=== PATIENT | female | born 1955 | race Caucasian/White ===

== ENCOUNTER → 2016-07-16 14:26 | Outpatient (CLI) | payer OTHER | END | disposition home or self-care (01) | LOC: D.LAB 14:15 | DX: Z02.71 Encounter for disability determination (principal) ==

== ENCOUNTER → 2016-11-23 07:59 | Day surgery (SDC) | payer MEDICAID ==
[~2016-11-23] VITALS: Ht 170.2 cm; Wt 89.8 kg
[~2016-11-23 07:59] MED LIST: ASPIRIN EC81 M1 PO; BENADRYL25 MG PO; CELEXA20 MG PO; COREG 3.1253.125 MG PO; HYDROCODON-ACE1 EAC7 PO; ISOSORBIDE DINI10 MG PO; LEVOTHYROXINE125 MCG PO; LIPITOR40 MG PO; NEPHRO-VITE RX1 TAB PO; PREDNISONE50 MG PO
[2016-11-23 09:49] LABS: BASOPHILS 0.1 % (0-2); EOSINOPHILS 0 % (0-7); HEMATOCRIT 43.3 % (36.0-48.0); HEMOGLOBIN 13.2 g/dL (12-16); IMMATURE GRANULOCYTES 0.1 % (0-5); LYMPHOCYTES 19.6 % (15-50); MCH 27.9 pg (26.0-34.0); MCHC 30.5 g/dL (31.0-37.0); MCV 91.5 fL (80.0-100.0); MEAN PLATELET VOLUME 9.5 fL (7.4-10.4); NEUTROPHILS 79.2 % (40-80); PLATELET COUNT 152 10x3/uL (130-400); RBC 4.73 10x6/uL (4.00-5.40); WBC 7.3 10x3/uL (4.8-10.8)
[2016-11-23 09:57] LABS: APTT 28.3 SECONDS (22.8-39.4); INR 1.03 (0.85-1.17); PROTIME 13.4 SECONDS (11.6-15.0)
[2016-11-23 10:09] LABS: ANION GAP 16.4 mmol/L (8-16); CALCIUM 9.8 mg/dL (8.5-10.1); CARBON DIOXIDE 25.4 mmol/L (21.0-32.0); CREATININE - SERUM 4.9 mg/dL (0.6-1.3); POTASSIUM - SERUM 4.8 mmol/L (3.5-5.1)
[2016-11-23 14:33] VITALS: BP 168/88; Ht 170.2 cm; Wt 89.8 kg
--- NOTE | 2016-11-23 22:58 | NUR ---
PT RECEIVED FROM RECOVERY VIA STRETCHER AT 22:20, AWAKE, ALERT, ORIENTED, AND ASKING WHEN SHE CAN GO HOME. PT DENIES ANY NAUSEA OR VOMITING, DENIES PAIN AT THIS TIME. PTS LEFT ARM IS IN A SLING, STILL NUMB AND FLACCID FROM NERVE BLOCK. PT STATES SHE HAS DIFFICULTY AT TIMES WALKING, WILL AMBULATE WITH ASSIST AND MONITOR HER PROGRESS BEFORE D/C. I HAVE GONE OVER ALL OF DR. FLANNERY'S POST OP ORDERS WITH PT AND SON, ALONG WITH GIVING PT A COPY OF THESE ORDERS. PT AND SON DENY ANY QUESTIONS AT THIS TIME. PT IS DRESSING, WILL ASSESS WALKING, AND D/C HOME.
--- NOTE | 2016-11-23 23:45 | NUR ---
PT D/C'D PER ORDER, AWAKE, ALERT, ORIENTED. D/C ORDERS DISCUSSED WITH PT AND SON, DRESSING TO LEFT FOREARM CLEAN DRY AND INTACT, NO OOZING, DRAINAGE, REDNESS, OR STREAKING. PT DENIED NAUSE, VOMITING. PT WAS TAKEN VIA WHEELCHAIR TO THE ER EXIT WHERE HER SON WAS WAITING TO TAKE HER HOME. PT DENIED ANY QUESTIONS.
== END | disposition home or self-care (01) ==
LOC: D.OPS 07:59
PROVIDERS: Surgery
DX: T82.42XA Displacement of vascular dialysis catheter, initial encounter (principal); N18.6 End stage renal disease; Z99.2 Dependence on renal dialysis; Z01.810 Encounter for preprocedural cardiovascular examination; Z01.811 Encounter for preprocedural respiratory examination; Z01.812 Encounter for preprocedural laboratory examination

== ENCOUNTER 2016-12-28 06:05 | Day surgery (SDC) | payer MEDICAID ==
[~2016-12-28] VITALS: Ht 170.2 cm; Wt 92.1 kg
[2016-12-28 07:24] LABS: BASOPHILS 0.1 % (0-2); EOSINOPHILS 0 % (0-7); HEMATOCRIT 37.2 % (36.0-48.0); HEMOGLOBIN 11.7 g/dL (12-16); IMMATURE GRANULOCYTES 0.5 % (0-5); LYMPHOCYTES 17.7 % (15-50); MCH 28.4 pg (26.0-34.0); MCHC 31.5 g/dL (31.0-37.0); MCV 90.3 fL (80.0-100.0); MEAN PLATELET VOLUME 9.6 fL (7.4-10.4); NEUTROPHILS 79.7 % (40-80); PLATELET COUNT 142 10x3/uL (130-400); RBC 4.12 10x6/uL (4.00-5.40); RDW 16.5 % (11.5-14.5); WBC 7.4 10x3/uL (4.8-10.8)
[2016-12-28 07:41] LABS: APTT 25.4 SECONDS (22.8-39.4)
[2016-12-28 07:44] LABS: ANION GAP 17.8 mmol/L (8-16); CALCIUM 9.4 mg/dL (8.5-10.1); CARBON DIOXIDE 26.7 mmol/L (21.0-32.0); CREATININE - SERUM 4.1 mg/dL (0.6-1.3); POTASSIUM - SERUM 4.5 mmol/L (3.5-5.1)
[2016-12-28] MEDS ORDERED: LASIX80 MG PO (08:57)
[2016-12-28] MEDS ORDERED: NEURONTIN 300300 MG PO (08:57)
[2016-12-28] MEDS ORDERED: RENVELA800 MG PO (08:58)
[2016-12-28 08:59] VITALS: Ht 170.2 cm; Wt 92.1 kg
[2016-12-28] MEDS ORDERED: ELIQUIS2.5 MG PO (13:11)
--- NOTE | 2016-12-28 13:30 | NUR ---
RECEIVED PT FROM OR, ALERT/ORIENTED.
--- NOTE | 2016-12-28 14:03 | NUR ---
SPOKE WITH DR SHEPPARD ABOUT FSBS OF 247 ANS STATES SHE CAN TAKE MEDS AT HOME.
--- NOTE | 2016-12-28 20:17 | NUR ---
1420-RECD TO ROOM FROM PACU. ALERT. DENIES PAIN. +THRILL TO LEFT ARM. 1440-FULL LIQUIDS SERVED, NO NAUSEA. 1450-LEFT ARM CONTINUES NUMB, +THRILL. 1520-HEMOSPLIT FLUSHED WITH 1.9CC HEPARIN. SLING TO LEFT ARM, NUMB. DRESSING DRY AND INTACT. +THRILL. 1530-UP TO BATHROOM AND DRESSING. 1600-DISCHARGE INSTRUCTIONS REVIEWED. 1615-D/C VIA WHEELCHAIR.
--- NOTE | 2017-01-03 17:00 | OP ---
PATIENT NAME: LORETO DUGAN MEDICAL RECORD: [id number] :59 LOCATION:[facility] ADMISSION DATE: SURGEON: CORAL FLANNERY MD OPERATION DATE: 12/28/16 SURGEON: Coral Flannery MD REFERRING PHYSICIAN: Dr. Keyes PREOPERATIVE DIAGNOSIS: End-stage renal disease N18.6, dependence on hemodialysis Z99.2, other mechanical complication of surgically implanted arteriovenous graft T82.591A. POSTOPERATIVE DIAGNOSIS: End-stage renal disease N18.6, dependence on hemodialysis Z99.2, other mechanical complication of surgically implanted arteriovenous graft T82.591A. OPERATION PERFORMED: Ultrasound guided percutaneous access and left forearm loop PTFE arteriovenous graft fistulogram with AngioJet mechanical thrombolysis and angioplasty of the arterial anastomosis and a venous anastomotic stenosis and placement of a Bard 7 millimeter by 4 centimeter straight endovascular stent in the venous anastomosis. ANESTHESIA: Regional nerve block and IV sedation and monitoring per ENGINE RESEARCH ENGINEER. PREOPERATIVE NOTE: The patient is very nice 61-year-old white female patient from [place] who is on hemodialysis via catheter. She is about two weeks or slightly over two weeks postop implantation of left forearm loop brachial artery to cephalic vein PTFE arteriovenous graft that has thrombosed. She is brought back to the operating room today as an outpatient to try to salvage this access. PROCEDURE: Under a regional block and sedation, the patient is prepped and draped in a sterile manner. The forearm loop was accessed in the venous limb using ultrasound guidance and micropuncture technique. A 6-British sheath was placed. A guidewire and [place] catheter were advanced through a very tight venous anastomosis into the cephalic vein to the mid humeral level. Contrast injection revealed patency of the cephalic vein and pullback angiogram was performed which revealed a very tight stenosis in the venous anastomosis, 95-99%. This was subsequently dilated with a 7 millimeter by 40 millimeter angioplasty balloon and later during the procedure when the stenosis recurred, it was dilated and stented with a 7 millimeter diameter 40 millimeter long Bard flare stent. This was a straight flare, not a flared flare. I used a AngioJet over a roadrunner wire to lyse thrombus in the venous limb. I then inserted another introducer sheath, a 6-British in the venous limb directed towards the arterial anastomosis and advanced the roadrunner wire into the brachial artery and over that advanced a angled [place] catheter and performed a selective brachial artery arteriogram which revealed a stenosis at the arterial anastomosis, due to thrombus I believe. I then used the AngioJet catheter over the guidewire to lyse thrombus in the body of the graft and arterial limb and I used a 4-British Sony embolectomy catheter to remove thrombus from the arterial anastomosis. I then dilated the arterial anastomosis with a 5 millimeter angioplasty balloon and achieved full effacement without any residual stenosis. The patient was heparinized with 5000 units of heparin at the beginning of the procedure and this was not supplemented nor was it reversed at the end of the procedure. At one point when the procedure seemed to have been successfully completed, I removed the introducer sheath only to find that the graft was not functioning well by OPERATIVE REPORT [id number] LORETO DUGAN palpation and Doppler and I had to insert two new sheaths and through one inserted the flare stent in the venous anastomosis and through the other removed thrombus which had recurred in the arterial anastomosis with a Sony balloon catheter. Contrast injection finally demonstrated good patency in both venous and arterial anastomoses with rapid flow through the fistula and again selective brachial angiography revealed no evidence of significant embolization into the forearm. The hardware was removed and the puncture sites controlled with [id number] 4-0 Prolene sutures and some gentle direct pressure after which sterile dressings were applied. Aventine Ultrafoam, Tegaderm, and Cavilon skin prep. The patient was then awoken and taken to the recovery room. Blood loss was about 10 milliliters, none was replaced. All sponges, instruments, and needles were accounted for. No drain was used. No surgical specimen was submitted for histopathology. PLAN: I will plan for the patient to go home today. I am placing her on Eliquis 2.5 milligrams twice a day for two weeks. I will be seeing her back in my office the week after next. Hopefully her graft will remain patent and it will be able to be used for dialysis and her catheter removed. Unfortunately, the stent crosses the antecubital space and this may limit the lifetime of this arteriovenous graft. I believe in the future the patient may be a candidate for a branchial translocated cephalic vein arteriovenous fistula or basilic arteriovenous fistula. CORAL FLANNERY MD at 1700 CC: BASSAM KEYES MD [id number] DICTATION DATE: 12/28/16 1400 PHYSICAL THERAPY RESIDENT: DM 12/31/16 0903 [facility] 12/28/16 [facility] [address] [place] [address]
== END 2016-12-28 16:15 | disposition home or self-care (01) ==
LOC: D.OPS 06:05
PROVIDERS: Surgery
DX: T82.591A Other mechanical complication of surgically created arteriovenous shunt, initial encounter (principal); T82.858A Stenosis of other vascular prosthetic devices, implants and grafts, initial encounter; N18.6 End stage renal disease; Z99.2 Dependence on renal dialysis; Z01.812 Encounter for preprocedural laboratory examination

== ENCOUNTER 2017-01-25 06:01 | Day surgery (SDC) | payer MEDICAID ==
[~2017-01-25] VITALS: Ht 170.2 cm; Wt 93.4 kg
--- NOTE | ~2017-01-25 | OP ---
PATIENT NAME: LORETO DUGAN MEDICAL RECORD: [id number] :59 LOCATION:[facility] ADMISSION DATE: SURGEON: CORAL FLANNERY MD DATE OF OPERATION: 01/25/[address] Avery. REFERRED BY: Dr. Avery. 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 OPERATIVE FINDINGS: Recurrent kink in the antecubital space at the side of the venous anastomosis and prior stent recurring. OPERATION PERFORMED: A fistulogram with AngioJet mechanical thrombolysis with the forearm loop AV graft followed then by implantation of a new brachial artery in the distal third of the arm to axillary vein. A 6 mm diameter straight [place] Propaten PTFE AV graft. SURGEON: Coral Flannery MD ANESTHESIA: Regional nerve block plus general LMA per Dr. Enriquez and CONTINUOUS IMPROVEMENT MANAGER. PREOPERATIVE NOTE: Ms. Dugan is a very nice 61-year-old white female patient from [place]. She has end-stage renal disease and diabetes. She started dialysis with a catheter. I have recently implanted the forearm loop in her left arm. She had suffered an early thrombosis. Angiogram at that time, she had a very severe venous anastomotic stricture, which I treated by balloon angioplasty and the implantation of the stent that was a Bard FLAIR stent, probably an unfortunate choice. She returned within a week or so after that with another thrombosis and the graft was cleared of thrombus and again a kink or stenosis had occurred at the distal end of the previously inserted stent and that was also stented with a PTFE covered graft. She unfortunately suffered another early thrombosis and is brought back to the OR, here today with plans to do a fistulogram, but most likely will create either a new fistula or implant a new graft. PREOPERATIVE NOTE: Under anesthesia in supine position, the patient was prepped and draped in a sterile manner and the loop graft was accessed percutaneously without the need for ultrasound. A micropuncture technique was used and this led up to placement of a 6-Omani introducer. A Glidewire was inserted and this crossed the venous anastomosis. Fluoroscopy demonstrated a severe kink in the stent in the venous anastomosis. I used an AngioJet catheter to lyse thrombus in the venous limb and venous anastomosis and then injected contrast, which confirmed those findings and I decided at that point that the most expedient and the best thing for her to today would be to go ahead and implant a new graft in her upper arm. The 6-Omani sheath was removed and hemostasis was obtained after a period of direct pressure. A transverse axillary incision was then made and the axillary vein exposed and controlled with Silastic loops. The brachial artery was OPERATIVE REPORT [id number] LORETO DUGAN exposed through a vertical incision just above the antecubital space. It too, was controlled with Silastic loops. The brachial artery was rather heavily calcified, but I thought was usable for the origin of the graft. I chose a 6-mm straight standard wall [place] Propaten graft, one end was beveled and anastomosed to the axillary vein with running 6-0 Prolene. When the vein was opened, it was flushed with heparinized saline and when the anastomosis completed, the suture line was treated with Evicel and later the graft and anastomosis flushed with heparinized saline. A subcutaneous tunnel was then created immediately beneath the skin from the distal incision upwards to the proximal one and a curved carried out as far laterally as I could with the Quantum Dielectrricsa tunneler. The graft was then pulled through that tunnel, shortened and beveled. The artery opened and flushed proximally and distally with heparinized saline and then anastomosis end of graft to side of artery was completed with running 6-0 Prolene. That suture line also was treated with Evicel and when the occluding loops and clamps were released, excellent flow was established in the new graft. The wounds were irrigated with Ancef and gentamicin solution. The wounds were closed with interrupted inverted 3-0 Vicryl and running intracuticular 4-0 Monocryl and Dermabond glue. The wounds were dressed with Maxorb Ag, Tegaderm and Cavilon skin prep. Doppler exam confirmed the presence of a pulsatile Doppler flow in the radial artery at the wrist with the graft open and of course there was dramatic improvement in inflow in the radial artery with graft occlusion with digital pressure. The hand appears to be well vascularized. The patient was awakened and taken to the recovery room in stable condition. Prior to that after completion of the last anastomosis, but before the wounds were closed, I used the micropuncture needle wire and the catheter to perform a completion angiogram. This demonstrated a nice flow through the new graft and then to the axillary vein without any evidence of stenosis or complication with graft occlusion, contrast injection filled retrograde the arterial limb of the graft and the arterial anastomosis and brachial artery above and below demonstrated the radial and ulnar arteries in the upper forearm and all looked very good and subsequently, the catheter was removed and that puncture site closed with [id number] 6-0 Prolene. The patient will be discharged home today and come back to see me next week. She is given a prescription for Ultracet, #30. She can take two p.o. q. 4-6 hours p.r.n. pain, no refills. She is to resume or continue her usual medicines and diet at home and resume activities as tolerated and her usual dialysis schedule. TRANSINT:[id number] Voice Confirmation ID: [id number] DOCUMENT ID: [id number] CORAL FLANNERY MD CC: FATOU AVERY MD [id number] DICTATION DATE: 01/25/17 1253 PICKLE WATER PUMP OPERATOR: 01/25/172044 [facility] 01/25/17 [address] [place] [address]
[~2017-01-25 06:01] MED LIST changes: +ELIQUIS2.5 MG PO; +LASIX80 MG PO; +NEURONTIN 300300 MG PO; +RENVELA800 MG PO
[2017-01-25 06:37] LABS: BASOPHILS 0.1 % (0-2); EOSINOPHILS 0 % (0-7); HEMATOCRIT 39.3 % (36.0-48.0); HEMOGLOBIN 12.1 g/dL (12-16); IMMATURE GRANULOCYTES 0.3 % (0-5); LYMPHOCYTES 14.8 % (15-50); MCH 29.8 pg (26.0-34.0); MCHC 30.8 g/dL (31.0-37.0); MCV 96.8 fL (80.0-100.0); MEAN PLATELET VOLUME 9.2 fL (7.4-10.4); MONOCYTES 0.8 % (2-11); RBC 4.06 10x6/uL (4.00-5.40); RDW 16.9 % (11.5-14.5); WBC 7.1 10x3/uL (4.8-10.8)
[2017-01-25 06:40] LABS: PLATELET COUNT 186 10x3/uL (130-400)
[2017-01-25 06:44] LABS: PROTIME 13.1 SECONDS (11.6-15.0)
[2017-01-25 06:45] LABS: APTT 27.9 SECONDS (22.8-39.4)
[2017-01-25 06:48] LABS: ANION GAP 15.8 mmol/L (8-16); CALCIUM 9.1 mg/dL (8.5-10.1); CARBON DIOXIDE 26.3 mmol/L (21.0-32.0); CREATININE - SERUM 4.2 mg/dL (0.6-1.3); POTASSIUM - SERUM 5.1 mmol/L (3.5-5.1)
[2017-01-25] MEDS ORDERED: BIOTIN5 MG PO (06:50)
[2017-01-25] MEDS ORDERED: VITAMIN B-121000 MCG PO (06:51)
[2017-01-25] MEDS ORDERED: ASCORBIC ACID500 MG PO (06:51)
[2017-01-25 06:54] VITALS: Ht 170.2 cm; Wt 93.4 kg
--- NOTE | 2017-01-25 12:29 | NUR ---
RECEIVED PT FROM OR.
--- NOTE | 2017-01-25 12:34 | NUR ---
NO DOCUMENTATION DONE PRIOR TO MY RELIEF MY GRAND JURY DEPUTY SHERIFF DIRECTOR AWARE AND WAS TOLD TO RELIEVE WITH NO DOCUMENTATION, NOT COMFORTABLE WITH THIS SITUATION, GRAEME.
[2017-01-25] MEDS ORDERED: ULTRACET TABLET1 TAB PO (12:36)
--- NOTE | 2017-01-25 18:51 | NUR ---
1800--TRAMADOL 50MG X1 TAB GIVEN PO FOR PAIN. IV DC'D, PT UP TO DRESS AT THIS TIME. TEMO HAWTHORNE 3169--DISCHARGE INSTRUCTIONS GIVEN, PT VERBALIZES UNDERSTANDING. PT OFF UNIT VIA WC. TEMO HAWTHORNE
== END 2017-01-25 18:35 | disposition home or self-care (01) ==
LOC: D.OPS 06:01
PROVIDERS: Internal Medicine Nephrology
DX: T82.868A Thrombosis due to vascular prosthetic devices, implants and grafts, initial encounter (principal); E11.22 Type 2 diabetes mellitus with diabetic chronic kidney disease; N18.6 End stage renal disease; Z99.2 Dependence on renal dialysis; Z01.812 Encounter for preprocedural laboratory examination

== ENCOUNTER 2017-08-23 11:56 | Outpatient (CLI) | payer MEDICARE ==
[~2017-08-23] VITALS: Ht 170.2 cm; Wt 92.1 kg
[~2017-08-23 11:56] MED LIST changes: +ASCORBIC ACID500 MG PO; +BIOTIN5 MG PO; +ULTRACET TABLET1 TAB PO; +VITAMIN B-121000 MCG PO
[2017-08-23] MEDS ORDERED: SENSIPAR30 MG PO (12:46)
[2017-08-23 12:48] LABS: HEMATOCRIT 37.2 % (36.0-48.0); HEMOGLOBIN 12.2 g/dL (12-16); MCHC 32.8 g/dL (31.0-37.0); MCV 97.6 fL (80.0-100.0); MEAN PLATELET VOLUME 9.3 fL (7.4-10.4); RBC 3.81 10x6/uL (4.00-5.40); RDW 13.6 % (11.5-14.5); WBC 8.2 10x3/uL (4.8-10.8)
[2017-08-23 12:55] VITALS: BP 152/47; Ht 170.2 cm; Wt 92.1 kg
[2017-08-23 12:59] LABS: APTT 31.9 SECONDS (22.8-39.4); INR 1.18 (0.85-1.17); PROTIME 14.6 SECONDS (11.6-15.0)
[2017-08-23 13:02] LABS: ANION GAP 17.3 mmol/L (8-16); CALCIUM 8.6 mg/dL (8.5-10.1); CARBON DIOXIDE 24.9 mmol/L (21.0-32.0); CREATININE - SERUM 7.3 mg/dL (0.6-1.3); POTASSIUM - SERUM 5.2 mmol/L (3.5-5.1)
== END 2017-08-23 15:50 | disposition home or self-care (01) ==
LOC: D.OPS 11:56 → EDSTATUS 14:30 → D.OPS 14:30
PROVIDERS: Anesthesiology
DX: T82.868A Thrombosis due to vascular prosthetic devices, implants and grafts, initial encounter (principal); Z01.810 Encounter for preprocedural cardiovascular examination; Z01.811 Encounter for preprocedural respiratory examination; Z01.812 Encounter for preprocedural laboratory examination; Z53.9 Procedure and treatment not carried out, unspecified reason

== ENCOUNTER 2017-08-27 14:26 | Inpatient (IN) | payer MEDICARE ==
[2017-08-26 14:32] VITALS: BP 182/47; BMI 37.0
[2017-08-26 15:52] VITALS: BP 182/47
[2017-08-26 20:29] VITALS: BP 135/51
[~2017-08-27] VITALS: Ht 170.2 cm; Wt 106.4 kg
--- NOTE | ~2017-08-27 | OP ---
PATIENT NAME: LORETO DUGAN MEDICAL RECORD: [id number] :59 LOCATION:D.M2 D.0 ADMISSION DATE:08/26/17 SURGEON: SIMBA OCONNOR MD DATE OF OPERATION: 08/27/2017 PREOPERATIVE DIAGNOSES: 1. Clotted left upper extremity AV graft. 2. End-stage renal disease. 3. Diabetes mellitus. POSTOPERATIVE DIAGNOSES: 1. Clotted left upper extremity AV graft. 2. End-stage renal disease. 3. Diabetes mellitus. PROCEDURE: 1. Left upper extremity mechanical thrombectomy. 2. Left upper extremity AV graft fistulogram. 3. Angioplasty of venous anastomosis with 6 x 40 mm angioplasty balloon. SURGEON: Simba Oconnor MD REPORT OF PROCEDURE: The patient's left upper extremity was prepped and draped in sterile fashion. A skin incision was made overlying the AV graft at its inferior aspect. Electrocautery was used to dissect down to the graft and we were able to place vessel loops around the graft proximally and distally. A transverse incision was made overlying the graft. There was no flow through the graft at this point. We cleaned up the venous efferent aspect of the graft first by passing a 4 Sony balloon. We were able to pass this balloon multiple times and eventually got a large amount of clot. There was brisk flow blood and with return, the 5-Jordanian sheath was inserted and a fistulogram was performed of the distal aspect of the fistula and showed that there was some clot and stenosis at the venous anastomosis in the left axilla. A 6 x 40 mm angioplasty balloon was inserted and the venous anastomosis was dilated. Following this, we ran the Sony balloon one last time and was able to retrieve this large clot. At this point, there was no sign of any further clot present on final fistulogram. We then advanced the Sony catheter on the efferent end toward the arterial anastomosis and was able to remove large amount of clot. With this, there was brisk pulsatile flow through the vessel. Again, 5 sheath was inserted and a fistulogram was performed, it showed there was no sign of any stenosis of the arterial anastomosis. We then irrigated each side with heparinized saline and closed the graftotomy using running 6-0 Prolenes. At the conclusion of this, a 22-gauge butterfly needle was inserted into the graft and a final fistulogram was performed that showed brisk flow of the contrast through the fistula with no sign of a stenosis or clot present. There was a good palpable thrill in the vessel at this time. We then irrigated out the subcutaneous tissues and reapproximated them with interrupted 3-0 Vicryl. The skin was then closed with subcutaneous running 5-0 Monocryl. COMPLICATIONS: None. CONDITION: Stable. ANESTHESIA: General endotracheal. OPERATIVE REPORT [id number] LORETO DUGAN BLOOD LOSS: 150 mL. TRANSINT:[id number] Voice Confirmation ID: [id number] DOCUMENT ID: [id number] SIMBA OCONNOR MD at 1413 CC: FATOU HARDIN MD [id number] DICTATION DATE: 08/27/17 1437 ROUGH RIB GRADER: 08/27/17 1455 [facility] IN 08/28/17 [id number] [place] [address]
[2017-08-27 01:15] VITALS: BP 147/51
[2017-08-27 05:21] VITALS: BP 134/44
[2017-08-27 06:33] LABS: BASOPHILS 0.6 % (0-2); EOSINOPHILS 2.7 % (0-7); HEMATOCRIT 34.1 % (36.0-48.0); HEMOGLOBIN 11.1 g/dL (12-16); IMMATURE GRANULOCYTES 0.3 % (0-5); MCH 31.5 pg (26.0-34.0); MCHC 32.6 g/dL (31.0-37.0); MCV 96.9 fL (80.0-100.0); MEAN PLATELET VOLUME 10.8 fL (7.4-10.4); MONOCYTES 13.9 % (2-11); NEUTROPHILS 48.5 % (40-80); PLATELET COUNT 122 10x3/uL (130-400); RBC 3.52 10x6/uL (4.00-5.40); RDW 13.5 % (11.5-14.5)
[2017-08-27 06:35] LABS: CALCIUM 8.4 mg/dL (8.5-10.1); CARBON DIOXIDE 18.5 mmol/L (21.0-32.0); PHOSPHOROUS 7.4 mg/dL (2.5-4.9)
[2017-08-27 06:40] LABS: ANION GAP 22.5 mmol/L (8-16)
[2017-08-27 08:01] VITALS: BP 140/47
[2017-08-27 10:08] VITALS: Ht 170.2 cm; Wt 106.4 kg
[2017-08-27 11:16] VITALS: BP 136/53
[~2017-08-27 14:26] MED LIST changes: +SENSIPAR30 MG PO
[2017-08-27 17:06] VITALS: BP 144/69
[2017-08-28] VITALS: BP 96/42
[2017-08-28 04:00] VITALS: BP 109/38
[2017-08-28 05:50] LABS: BASOPHILS 0.2 % (0-2); EOSINOPHILS 0.2 % (0-7); HEMATOCRIT 35.3 % (36.0-48.0); HEMOGLOBIN 11.4 g/dL (12-16); IMMATURE GRANULOCYTES 0.2 % (0-5); LYMPHOCYTES 15.1 % (15-50); MCH 31.8 pg (26.0-34.0); MCHC 32.3 g/dL (31.0-37.0); MCV 98.3 fL (80.0-100.0); MONOCYTES 4.8 % (2-11); NEUTROPHILS 79.5 % (40-80); PLATELET COUNT 121 10x3/uL (130-400); RBC 3.59 10x6/uL (4.00-5.40); RDW 13.4 % (11.5-14.5); WBC 6.4 10x3/uL (4.8-10.8)
[2017-08-28 06:05] LABS: ANION GAP 17.4 mmol/L (8-16); CALCIUM 8.1 mg/dL (8.5-10.1); CREATININE - SERUM 6.1 mg/dL (0.6-1.3); POTASSIUM - SERUM 4.5 mmol/L (3.5-5.1)
[2017-08-28 06:10] LABS: CARBON DIOXIDE 29.1 mmol/L (21.0-32.0)
[2017-08-28 07:58] VITALS: BP 163/52
[2017-08-28] MEDS ORDERED: ELIQUIS2.5 MG PO (08:23)
== END 2017-08-28 18:16 | disposition home or self-care (01) | DRG 252 ==
LOC: D.M2 14:33
PROVIDERS: Internal Medicine Nephrology; Surgery
PROC: 5A1D70Z Performance of Urinary Filtration, Intermittent, Less than 6 Hours Per Day (ICD-10-PCS; 2017-08-27)
PROC: 05C83ZZ Extirpation of Matter from Left Axillary Vein, Percutaneous Approach (ICD-10-PCS; principal; 2017-08-27 11:45)
PROC: 05783ZZ Dilation of Left Axillary Vein, Percutaneous Approach (ICD-10-PCS; 2017-08-27 11:45)
PROC: B51N1ZZ Fluoroscopy of Left Upper Extremity Veins using Low Osmolar Contrast (ICD-10-PCS; 2017-08-27 11:45)
DX: T82.868A Thrombosis due to vascular prosthetic devices, implants and grafts, initial encounter (principal); N18.6 End stage renal disease; I13.2 Hypertensive heart and chronic kidney disease with heart failure and with stage 5 chronic kidney disease, or end stage renal disease; N25.81 Secondary hyperparathyroidism of renal origin; Y83.8 Other surgical procedures as the cause of abnormal reaction of the patient, or of later complication, without mention of misadventure at the time of the procedure; E11.22 Type 2 diabetes mellitus with diabetic chronic kidney disease; I50.9 Heart failure, unspecified; Z99.2 Dependence on renal dialysis; D63.1 Anemia in chronic kidney disease; E83.39 Other disorders of phosphorus metabolism; E11.40 Type 2 diabetes mellitus with diabetic neuropathy, unspecified; Z87.891 Personal history of nicotine dependence

== ENCOUNTER 2017-09-03 06:37 | Day surgery (SDC) | payer MEDICARE ==
[~2017-09-03] VITALS: Ht 170.2 cm; Wt 101.2 kg
--- NOTE | ~2017-09-03 | OP ---
PATIENT NAME: LORETO DUGAN MEDICAL RECORD: [id number] :59 LOCATION:D.OPS ADMISSION DATE: SURGEON: BASSAM BRAVO MD DATE OF OPERATION: 09/03/2017 PREOPERATIVE DIAGNOSIS: Clotted left upper extremity arteriovenous graft fistula. POSTOPERATIVE DIAGNOSES: 1. Clotted left upper extremity arteriovenous graft fistula with ball valving fibrinous clot at the arterial anastomosis. 2. Extravasation of contrast within the graft. 3. Venous anastomotic stricture. PROCEDURES: 1. Antegrade sheath placement, 7-Dominican, left arm AV graft fistula. 2. Retrograde sheath placement, 7-Dominican, left arm AV graft fistula. 3. Nonselective fistulogram. 4. Selective brachial arteriogram. 5. Catheter thrombectomy of arteriovenous graft fistula. 6. AngioJet mechanical thrombolysis of the arteriovenous graft fistula. 7. Balloon angioplasties, 7 mm, venous anastomotic stricture. 8. Placement of fluency covered stents 7 mm x 60 cm at the venous anastomosis and a 6 mm x 60 mm within the extravasating portion of the AV graft. SURGEON: Bassam Bravo MD BRIDAL SALES CONSULTANT: None. BLOOD LOSS: Minimal. ANESTHESIA: General. COMPLICATIONS: None. The risks, possible complications, and alternatives to procedure were explained to the patient. She elects to proceed. OPERATIVE COURSE: The patient was conveyed to the operating room electively on 09/03/2017. General anesthesia was induced by the anesthesia staff. The left upper extremity was sterilely prepped and draped. Utilizing a micropuncture technique, I placed a 7-Dominican sheath in an antegrade fashion. Through the sheath, a nonselective fistulogram was performed. There was no radiologist present for this procedure. Static and sitting images were obtained and are kept in the PACS system. The surgeon interpretation is dictated within the body of this operative note. The nonselective fistulogram revealed a very large clot burden within the AV graft fistula. I advanced an 5-Dominican Sony catheter. It was advanced down through the venous anastomosis and a catheter thrombectomy was performed through the sheath. A subsequent fistulogram revealed a venous anastomotic stricture. Utilizing micropuncture technique, a retrograde 7-Dominican sheath was placed under fluoroscopic guidance again. Through this retrograde sheath, a 5-Dominican Sony catheter was advanced and a catheter thrombectomy of the arterial anastomosis was accomplished. OPERATIVE REPORT [id number] LORETO DUGAN I advanced an 0.035 Glidewire through the antegrade sheath. An AngioJet mechanical thrombolysis was performed until all the clot was removed. I then advanced the 0.035 Glidewire down the retrograde sheath. I advanced it down into the brachial arterial system and then out through the radial artery. Over the 0.035 Glidewire, the AngioJet device was advanced and activated. I performed a thorough AngioJet mechanical thrombolysis. Another fistulogram revealed a persistence of the venous anastomotic stricture. I advanced a 7-mm angioplasty balloon. This was advanced to the venous anastomoses, I inflated the balloon to 8 atmospheres times 3 minutes. A subsequent nonselective fistulogram through the antegrade sheath revealed persistence of the venous anastomotic stricture. I then elected to place a stent as the anastomotic stricture was persistent and resistant to balloon angioplasty. Over the 0.035 Glidewire, I advanced a Fluency covered stent. This was deployed at the venous anastomotic stricture. A post-deployment balloon angioplasty was performed. A subsequent nonselective fistulogram revealed a 0% residual stenosis at the venous anastomosis. I performed another nonselective fistulogram while occluding the venous outflow. This revealed that there was an obstruction of the brachial artery. I performed several catheter thrombectomies through the retrograde sheath in order to try to clear this thrombus and this was not successful. An 0.035 Glidewire was advanced through the retrograde sheath and I performed AngioJet mechanical thrombolysis. I then advanced a 4-Dominican angled diagnostic catheter into the brachial artery and this revealed what appeared to be a ball-valving thrombus that was bullet shaped that would ball valve into the brachial artery and then into the arterial end of the graft. Additional attempts at catheter thrombectomy were performed as well as additional attempts at balloon angioplasty of the ball valving clot. This was not fruitful. I continued catheter thrombectomy attempts and these were ultimately successful. Subsequent, selective brachial arteriogram through 4-Dominican catheter revealed complete clearing of this ball valving clot and flow out through the radial artery. There was an excellent thrill within the graft. The antegrade sheath was removed and there was swelling that occurred around the sheath insertion site. A subsequent fistulogram here revealed extravasation of contrast that was pretty marked. I wanted to seal this area off with a covered stent. I advanced a Fluency stent, deployed it, and a post-deployment angioplasty was performed. A subsequent fistulogram revealed that the extravasation had ceased and that there was a good seal. The retrograde sheath was removed. The sheath sites were closed with a pursestring 3-0 Vicryl sutures. Sterile dressings were applied. The patient was then extubated and conveyed to post-anesthesia care unit where she was in stable condition. TRANSINT:[id number] Voice Confirmation ID: [id number] DOCUMENT ID: [id number] OPERATIVE REPORT [id number] LORETO DUGAN ROBERT MD at 1227 CC: KIRK ZABALA MD [id number] DICTATION DATE: 11/06/172052 MANAGER DATA WAREHOUSE: 11/07/[address] [facility] 09/03/17 [address] [place] [address]
[2017-09-03 07:29] LABS: BASOPHILS 0.4 % (0-2); EOSINOPHILS 2.2 % (0-7); HEMATOCRIT 33.8 % (36.0-48.0); HEMOGLOBIN 10.6 g/dL (12-16); IMMATURE GRANULOCYTES 0.2 % (0-5); LYMPHOCYTES 21.5 % (15-50); MCH 31.4 pg (26.0-34.0); MCHC 31.4 g/dL (31.0-37.0); MEAN PLATELET VOLUME 9.7 fL (7.4-10.4); MONOCYTES 7.8 % (2-11); NEUTROPHILS 67.9 % (40-80); RBC 3.38 10x6/uL (4.00-5.40); RDW 13.4 % (11.5-14.5); WBC 10.6 10x3/uL (4.8-10.8)
[2017-09-03 07:41] LABS: APTT 28.7 SECONDS (22.8-39.4); INR 1.09 (0.85-1.17); PROTIME 13.7 SECONDS (11.6-15.0)
[2017-09-03 07:42] LABS: PLATELET COUNT 162 10x3/uL (130-400)
[2017-09-03 07:49] LABS: ANION GAP 22.3 mmol/L (8-16); CARBON DIOXIDE 20.2 mmol/L (21.0-32.0); CREATININE - SERUM 8.6 mg/dL (0.6-1.3); POTASSIUM - SERUM 5.5 mmol/L (3.5-5.1)
[2017-09-03 08:25] VITALS: Ht 170.2 cm; Wt 101.2 kg
== END 2017-09-03 14:50 | disposition home or self-care (01) ==
LOC: D.OPS 06:37
PROVIDERS: Anesthesiology
DX: T82.898A Other specified complication of vascular prosthetic devices, implants and grafts, initial encounter (principal); I25.10 Atherosclerotic heart disease of native coronary artery without angina pectoris; E03.9 Hypothyroidism, unspecified; J44.9 Chronic obstructive pulmonary disease, unspecified; E11.22 Type 2 diabetes mellitus with diabetic chronic kidney disease; I13.2 Hypertensive heart and chronic kidney disease with heart failure and with stage 5 chronic kidney disease, or end stage renal disease; N18.6 End stage renal disease; Z99.2 Dependence on renal dialysis; Z01.812 Encounter for preprocedural laboratory examination

== ENCOUNTER 2017-09-17 06:11 | Day surgery (SDC) | payer MEDICARE ==
[~2017-09-17] VITALS: Ht 170.2 cm; Wt 102.1 kg
--- NOTE | ~2017-09-17 | OP ---
PATIENT NAME: LORETO DUGAN MEDICAL RECORD: [id number] :57 LOCATION:D.OPS ADMISSION DATE: SURGEON: MELISSA OCONNOR MD DATE OF OPERATION: 09/17/2017 PREOPERATIVE DIAGNOSES: 1. Clotted left upper extremity AV graft. 2. End-stage renal disease. 3. Hypertension. 4. Diabetes mellitus. 5. Coronary artery disease with history of CABG. 6. Congestive heart failure, undifferentiated. POSTOPERATIVE DIAGNOSES: 1. Clotted left upper extremity AV graft. 2. End-stage renal disease. 3. Hypertension. 4. Diabetes mellitus. 5. Coronary artery disease with history of CABG. 6. Congestive heart failure, undifferentiated. PROCEDURE: Left upper extremity AV graft, mechanical thrombectomy with fistulogram. SURGEON: Melissa Oconnor MD REPORT OF PROCEDURE: The patient's left upper extremity was prepped and draped in sterile fashion. A longitudinal incision was made overlying the lateral aspect of the graft. We came around the graft and placed vessel loops. A transverse opening was made through the graft and there was no flow through the graft at this point. We opened up the efferent side first by placing a 4 Sony catheter through the graft and traversing the venous anastomosis. The anastomosis appeared to be open and actually at this time, there was a stent present in the distal aspect of the AV graft. The 4 Sony catheter was pulled through and a large amount of clot was removed. We eventually pulled a 5 Sony catheter through and removed the remaining clot. At this point, we had good continuous flow. We then flushed the area with heparinized saline, and the patient was given 5000 units of heparin IV. We then opened up the afferent end again using a 4 Sony catheter. Upon doing this, we were able to pass through the arterial anastomosis. We removed a large amount of clot, and there was noted to be good pulsatile flow present. We placed a 6-Brazilian sheath into the opening and performed a fistulogram through the arterial anastomosis. There appeared to be some clot still present, so a 5 Sony catheter was pulled through and there was removal of a small amount of clot. At this point, there was no more visible clot present. We then placed the 6-Brazilian sheath in the distal aspect of the graft and again shot some fistulogram proceeding up through the axillary vein up into the chest. This appeared to be widely patent and open. We then reapproximated the edges of the graft using running 6-0 Prolene. After the graft was opened up, we noted that there was good pulsatile flow through the graft. A 22-gauge butterfly needle was inserted in the graft and a final fistulogram was performed proximally and distally showing good flow through the vessel and in through the arterial inlet. At this point, the subcutaneous tissues were irrigated out and reapproximated with interrupted 3-0 Vicryl, and the skin was closed with running subcutaneous 5-0 Monocryl. OPERATIVE REPORT [id number] LORETO DUGAN COMPLICATIONS: None. CONDITION: Stable. ANESTHESIA: General endotracheal. BLOOD LOSS: 200 mL. TRANSINT:[id number] Voice Confirmation ID: [id number] DOCUMENT ID: [id number] MELISSA OCONNOR MD at 1413 CC: [id number] DICTATION DATE: 09/17/17 1254 MOTOR VEHICLE DISPATCHER: 09/17/17 1310 [facility] [address] [place] [address]
[2017-09-17 07:18] LABS: BASOPHILS 0.6 % (0-2); EOSINOPHILS 2.9 % (0-7); HEMATOCRIT 33.4 % (36.0-48.0); HEMOGLOBIN 10.7 g/dL (12-16); IMMATURE GRANULOCYTES 0.1 % (0-5); LYMPHOCYTES 21.3 % (15-50); MCH 31.4 pg (26.0-34.0); MCV 97.9 fL (80.0-100.0); MEAN PLATELET VOLUME 9.4 fL (7.4-10.4); MONOCYTES 10.3 % (2-11); NEUTROPHILS 64.8 % (40-80); PLATELET COUNT 171 10x3/uL (130-400); RBC 3.41 10x6/uL (4.00-5.40); RDW 13.5 % (11.5-14.5); WBC 9.6 10x3/uL (4.8-10.8)
[2017-09-17 07:28] LABS: APTT 30.4 SECONDS (22.8-39.4); INR 1.09 (0.85-1.17); PROTIME 13.7 SECONDS (11.6-15.0)
[2017-09-17 07:33] LABS: ANION GAP 17.9 mmol/L (8-16); CALCIUM 8.9 mg/dL (8.5-10.1); CARBON DIOXIDE 23.5 mmol/L (21.0-32.0); CREATININE - SERUM 7.1 mg/dL (0.6-1.3); POTASSIUM - SERUM 5.4 mmol/L (3.5-5.1)
[2017-09-17 08:40] VITALS: Ht 170.2 cm; Wt 102.1 kg
[2017-09-17] MEDS ORDERED: DILAUDID2 MG PO (12:48)
== END 2017-09-17 14:35 | disposition home or self-care (01) ==
LOC: D.OPS 06:11
PROVIDERS: Anesthesiology
DX: T82.868A Thrombosis due to vascular prosthetic devices, implants and grafts, initial encounter (principal); E11.22 Type 2 diabetes mellitus with diabetic chronic kidney disease; I13.2 Hypertensive heart and chronic kidney disease with heart failure and with stage 5 chronic kidney disease, or end stage renal disease; N18.6 End stage renal disease; Z99.2 Dependence on renal dialysis; K21.9 Gastro-esophageal reflux disease without esophagitis; E66.9 Obesity, unspecified; Z95.1 Presence of aortocoronary bypass graft; Z01.812 Encounter for preprocedural laboratory examination

== ENCOUNTER 2017-10-12 09:21 | Inpatient (IN) | payer MEDICARE ==
[~2017-10-12] VITALS: Ht 170.2 cm; Wt 103.5 kg
--- NOTE | ~2017-10-12 | OP ---
PATIENT NAME: LORETO DUGAN MEDICAL RECORD: [id number] :57 LOCATION:D.M2 D.2136 ADMISSION DATE:10/12/17 SURGEON: MELISSA OCONNOR MD DATE OF OPERATION: 10/12/2017 PREOPERATIVE DIAGNOSES: 1. End-stage renal disease. 2. Clotted left upper extremity AV graft. 3. Acute fluid overload. 4. Diabetes mellitus. 5. Hypertension. 6. Coronary artery disease. 7. Congestive heart failure, undifferentiated. POSTOPERATIVE DIAGNOSES: 1. End-stage renal disease. 2. Clotted left upper extremity AV graft. 3. Acute fluid overload. 4. Diabetes mellitus. 5. Hypertension. 6. Coronary artery disease. 7. Congestive heart failure, undifferentiated. PROCEDURE: Right IJ 12-1/2 cm Trialysis catheter placement. SURGEON: Melissa Oconnor MD REPORT OF PROCEDURE: The patient's right neck was prepped and draped in sterile fashion. A total of 5 cc of 1% lidocaine was infused into the subcutaneous tissues. Using ultrasound guidance, a needle was used to cannulate the right internal jugular vein and a guidewire was advanced with ease. Over this wire, a dilator was placed followed by the Trialysis catheter. The catheter aspirated nonpulsatile dark blood and flushed easily in all 3 ports. This was sutured into place with 4-0 nylons and dressed appropriately. COMPLICATIONS: None. CONDITION: Fair. ANESTHESIA: Local. BLOOD LOSS: Minimal. Procedure done at the bedside. TRANSINT:[id number] Voice Confirmation ID: [id number] DOCUMENT ID: [id number] OPERATIVE REPORT [id number] LORETO DUGAN MELISSA OCONNOR MD at 1052 CC: [id number] DICTATION DATE: 10/12/17 1644 ELECTRICAL SYSTEMS DESIGN ENGINEER: 10/12/17 1649 DIS IN 10/16/17 [id number] [place] [address]
--- NOTE | ~2017-10-12 | CN ---
PATIENT NAME:LORETO DUGAN MEDICAL RECORD: [id number] : 59 LOCATION:[facility].2136 ADMIT DATE: 10/12/17 ACCOUNT: [id number] CONSULTING PHYSICIAN: INGE SCHULTZ MD REFERRING PHYSICIAN: FATOU HARDIN MD DATE OF CONSULTATION: 10/14/2017 IDENTIFYING DATA: The patient is 62 years old. She is admitted to the hospital on a voluntary basis. CHIEF COMPLAINT: Occluded arteriovenous fistula. HISTORY OF PRESENT ILLNESS: The patient has been on dialysis for about a year. She has had several fistulas that have clotted. She is very upset about this. She apparently was quite tearful when the surgeon came in and hence, he requested a consultation. Apparently, the patient also says that she only is taking dialysis because her son wants her to and that if it were not for him, she would just stop it and she understands that she would if she did so. MENTAL STATUS EXAMINATION: The patient is awake, alert, and oriented to person, place, time, and situation. Her mood is euthymic. Her affect is appropriate. Thought processes are circumstantial. Memory, concentration, and abstraction abilities are intact and she denies any intent to harm herself or others as well as overt psychotic symptoms. ASSESSMENT: Adjustment disorder with mixed emotional features. PLAN: The patient is on an antidepressant. She is not psychotic, delusional or cognitively impaired to any appreciable degree. She is willing to take dialysis because her son wants her to do so. She is very frustrated about her medical condition, but at this point, there is no evidence of loss of contact with reality or acute dangerousness. She is already taking an antidepressant medication. I have offered her outpatient psychotherapy and/or supportive treatments and she has declined. TRANSINT:[id number] Voice Confirmation ID: [id number] DOCUMENT ID: [id number] INGE SCHULTZ MD at 1435 CC: [id number] DICTATION DATE: 10/14/17 1515 CORPORATE LEGAL SECRETARY: 10/14/17 1528 ADM IN [id number] [place] [address]
--- NOTE | ~2017-10-12 | OP ---
PATIENT NAME: LORETO DUGAN MEDICAL RECORD: [id number] :57 LOCATION:D. 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 OPERATION PERFORMED: Percutaneous fistulogram with AngioJet mechanical thrombolysis and balloon angioplasty and maceration of thrombus within the AV graft and a selective brachial artery arteriogram and also insertion of a HemoSplit tunneled dialysis catheter 23 cm in length via the left internal jugular vein done with ultrasound and fluoroscopic guidance. SURGEON: Coral Flannery MD REFERRING PHYSICIAN: Dr. Reilly and Dr. Avery. ANESTHESIA: TIVA per SENIOR HYDROGEOLOGIST. PREOPERATIVE NOTE: Ms. Dugan is an obese 62-year-old -[place] female with end-stage renal disease, who has a left arm brachial axillary PTFE AV graft, which has been recurrently thrombosing and requiring intervention more and more often despite being on anticoagulant therapy. She was admitted to the hospital on this occasion with another episode of graft thrombosis and Dr. Adames placed a temporary catheter so that she could dialyze and I am back now from a long weekend and I have been consulted for possible revision of her AV graft versus construction of a new access. She is brought to the operating room at this time with plans to start with a fistulogram and declot. Also, she is going to need a longer term tunneled catheter. DESCRIPTION OF PROCEDURE: Under TIVA per SENIOR HYDROGEOLOGIST, the patient was prepped and draped in a sterile manner. The graft was accessed with ultrasound guidance and micropuncture technique and two 6-Irish catheters were inserted. The patient was systemically heparinized. Over a guidewire, I used the AngioJet catheter to lyse thrombus within the body of the graft and the venous outflow and arterial limb. I placed a guidewire and catheter selectively in the proximal brachial artery and performed a selective arteriogram, which revealed no thrombus or embolus or other stenosis of the brachial artery or radial or ulnar arteries. Contrast injection demonstrated irregularities within the body of the AV graft and these were treated with repeated angioplasty balloon inflations to eliminate the areas of stenosis and macerate any remaining thrombus. Repeated contrast injections looked smooth. The arterial plug was pulled with a Sony catheter and eventually excellent flow was restored within the AV graft. I do not see any mechanical reason for this repeated graft failure and I do not see anything that I can do surgically to improve upon the graft, which she has presently in the left arm. If were to do anything different then it will require a new access to be constructed on the right side. The introducers were removed and hemostasis obtained with 4-0 Prolene [id number] sutures and direct pressure and the sites were subsequently dressed in sterile dressings. I then removed the Trialysis catheter from the left neck and then using OPERATIVE REPORT [id number] LORETO DUGAN ultrasound guidance, I was able to access the left internal jugular vein at a lower or more proximal level. This was done under ultrasound guidance with a needle and guidewire. Under fluoroscopy, the guidewire was placed in the right atrium. I made an incision at that entry site and then passed dilators over the guidewire and finally a dilator peel-away introducer was inserted. I initially chose a 19, but then changed to a 23 cm HemoSplit catheter. I passed this through an entry site below the clavicle and through a subcutaneous tunnel up to the cervical wound. It was then passed over a guidewire through the peelaway sheath and positioned satisfactorily on the right atrium. The sheaths and guidewire removed. Both lumens were accessed and aspirated easily. They were then flushed easily with saline solution, clamped and capped. The catheter was sutured to the skin near the entry site with a 2-0 Prolene and the cervical wound closed with interrupted inverted 3-0 Vicryl and Dermabond glue. Additional sterile dressings were applied and the patient then was awakened and taken to the recovery room in stable condition. Blood loss was minimal and unreplaced. All sponges, instruments and needles were accounted for. No drain was used. No surgical specimen was submitted for histopathology. PLAN: The patient will need to have the HemoSplit catheter removed if after a few weeks the graft remains patent of course with a higher dose of her anticoagulant. If it fails, then she will need to have a new AV graft implanted in the right arm. TRANSINT:[id number] Voice Confirmation ID: [id number] DOCUMENT ID: [id number] CORAL FLANNERY MD at 1221 CC: FATOU AVERY MD and KIRK REILLY MD [id number] DICTATION DATE: 11/05/17 1409 CLOTH EXAMINER MACHINE: 11/05/17 1550 DIS IN 10/16/17 [facility] [address] [place] [address]
[~2017-10-12 09:21] MED LIST changes: +DILAUDID2 MG PO
[2017-10-12 10:47] VITALS: BP 203/76; BMI 36.9
[2017-10-12 11:38] LABS: BASOPHILS 0.5 % (0-2); EOSINOPHILS 2.3 % (0-7); HEMATOCRIT 32.5 % (36.0-48.0); HEMOGLOBIN 10.3 g/dL (12-16); IMMATURE GRANULOCYTES 0.1 % (0-5); LYMPHOCYTES 32.5 % (15-50); MCH 31.8 pg (26.0-34.0); MCHC 31.7 g/dL (31.0-37.0); MCV 100.3 fL (80.0-100.0); MEAN PLATELET VOLUME 9.4 fL (7.4-10.4); NEUTROPHILS 57.6 % (40-80); PLATELET COUNT 155 10x3/uL (130-400); RBC 3.24 10x6/uL (4.00-5.40); RDW 13.5 % (11.5-14.5); WBC 8.3 10x3/uL (4.8-10.8)
[2017-10-12 11:43] LABS: INR 0.95 (0.85-1.17); PROTIME 12.2 SECONDS (11.6-15.0)
[2017-10-12 11:44] LABS: APTT 26.3 SECONDS (22.8-39.4)
[2017-10-12 12:23] LABS: ALBUMIN 3.3 g/dL (3.4-5.0); ANION GAP 16.9 mmol/L (8-16); BILIRUBIN - TOTAL 0.35 mg/dL (0.2-1.3); CALCIUM 8.9 mg/dL (8.5-10.1); CARBON DIOXIDE 25.9 mmol/L (21.0-32.0); CREATININE - SERUM 5.7 mg/dL (0.6-1.3); POTASSIUM - SERUM 4.8 mmol/L (3.5-5.1); PROTEIN - SERUM 6.8 g/dL (6.4-8.2)
[2017-10-13 05:48] VITALS: BP 122/31
[2017-10-13 08:02] VITALS: BP 121/67
[2017-10-13 11:16] VITALS: BP 115/54
[2017-10-13 15:01] VITALS: BP 102/48
[2017-10-13 20:00] VITALS: BP 122/68
[2017-10-14] VITALS: BP 124/70
[2017-10-14 04:00] VITALS: BP 125/41
[2017-10-14 06:20] LABS: BASOPHILS 0.8 % (0-2); EOSINOPHILS 3.4 % (0-7); HEMOGLOBIN 10.3 g/dL (12-16); IMMATURE GRANULOCYTES 0.3 % (0-5); LYMPHOCYTES 37.8 % (15-50); MCH 31.5 pg (26.0-34.0); MCHC 31.2 g/dL (31.0-37.0); MCV 100.9 fL (80.0-100.0); MEAN PLATELET VOLUME 9.5 fL (7.4-10.4); MONOCYTES 10.8 % (2-11); NEUTROPHILS 46.9 % (40-80); PLATELET COUNT 155 10x3/uL (130-400); RBC 3.27 10x6/uL (4.00-5.40); RDW 13.8 % (11.5-14.5)
[2017-10-14 06:30] LABS: WBC 6.1 10x3/uL (4.8-10.8)
[2017-10-14 06:42] LABS: INR 0.99 (0.85-1.17); PROTIME 12.7 SECONDS (11.6-15.0)
[2017-10-14 06:43] LABS: APTT 28.5 SECONDS (22.8-39.4)
[2017-10-14 07:00] LABS: ANION GAP 17.1 mmol/L (8-16); CALCIUM 8.5 mg/dL (8.5-10.1); CARBON DIOXIDE 26.1 mmol/L (21.0-32.0); CREATININE - SERUM 5.5 mg/dL (0.6-1.3); POTASSIUM - SERUM 4.2 mmol/L (3.5-5.1)
[2017-10-14 09:17] VITALS: BP 167/79
[2017-10-14 10:44] VITALS: BP 156/69
[2017-10-14 14:21] VITALS: Ht 170.2 cm; Wt 103.5 kg
[2017-10-14 15:17] VITALS: BP 127/64
[2017-10-14 19:42] VITALS: BP 124/43
[2017-10-15 00:58] VITALS: BP 144/44
[2017-10-15 04:00] VITALS: BP 149/42
[2017-10-15 07:15] LABS: BASOPHILS 0.6 % (0-2); EOSINOPHILS 3.8 % (0-7); HEMOGLOBIN 9.7 g/dL (12-16); MCH 31.2 pg (26.0-34.0); MCHC 31.3 g/dL (31.0-37.0); MCV 99.7 fL (80.0-100.0); MEAN PLATELET VOLUME 9.5 fL (7.4-10.4); MONOCYTES 11.3 % (2-11); NEUTROPHILS 49.3 % (40-80); PLATELET COUNT 148 10x3/uL (130-400); RBC 3.11 10x6/uL (4.00-5.40); RDW 13.7 % (11.5-14.5); WBC 6.8 10x3/uL (4.8-10.8)
[2017-10-15 07:31] LABS: ANION GAP 19.4 mmol/L (8-16); CALCIUM 8.4 mg/dL (8.5-10.1); CARBON DIOXIDE 22.2 mmol/L (21.0-32.0); CREATININE - SERUM 6.5 mg/dL (0.6-1.3); POTASSIUM - SERUM 4.6 mmol/L (3.5-5.1)
[2017-10-15 07:46] VITALS: BP 144/54
[2017-10-15 17:07] VITALS: BP 132/65
[2017-10-15 20:00] VITALS: BP 129/62
[2017-10-16] VITALS: BP 111/39
[2017-10-16 04:00] VITALS: BP 107/36
[2017-10-16 07:44] LABS: BASOPHILS 0.6 % (0-2); EOSINOPHILS 0.7 % (0-7); HEMATOCRIT 32.5 % (36.0-48.0); HEMOGLOBIN 10.5 g/dL (12-16); IMMATURE GRANULOCYTES 0.3 % (0-5); LYMPHOCYTES 14.2 % (15-50); MCHC 32.3 g/dL (31.0-37.0); MCV 99.1 fL (80.0-100.0); MEAN PLATELET VOLUME 9.4 fL (7.4-10.4); MONOCYTES 10.6 % (2-11); NEUTROPHILS 73.6 % (40-80); PLATELET COUNT 138 10x3/uL (130-400); RBC 3.28 10x6/uL (4.00-5.40); RDW 13.7 % (11.5-14.5)
[2017-10-16 08:20] LABS: ANION GAP 20.9 mmol/L (8-16); CARBON DIOXIDE 21.1 mmol/L (21.0-32.0); CREATININE - SERUM 5.5 mg/dL (0.6-1.3)
[2017-10-16 08:53] VITALS: BP 112/35
[2017-10-16] MEDS ORDERED: XARELTO15 MG PO (11:40)
== END 2017-10-16 16:59 | disposition home or self-care (01) | DRG 252 ==
LOC: D.M2 09:21
PROVIDERS: Internal Medicine; Surgery
PROC: 02HV33Z Insertion of Infusion Device into Superior Vena Cava, Percutaneous Approach (ICD-10-PCS; principal; 2017-10-12)
PROC: 037Y3ZZ Dilation of Upper Artery, Percutaneous Approach (ICD-10-PCS; 2017-10-15)
PROC: B51W1ZZ Fluoroscopy of Dialysis Shunt/Fistula using Low Osmolar Contrast (ICD-10-PCS; 2017-10-15)
PROC: B31J1ZZ Fluoroscopy of Left Upper Extremity Arteries using Low Osmolar Contrast (ICD-10-PCS; 2017-10-15)
PROC: 02H633Z Insertion of Infusion Device into Right Atrium, Percutaneous Approach (ICD-10-PCS; 2017-10-15)
PROC: B2141ZZ Fluoroscopy of Right Heart using Low Osmolar Contrast (ICD-10-PCS; 2017-10-15)
PROC: 05CY3ZZ Extirpation of Matter from Upper Vein, Percutaneous Approach (ICD-10-PCS; 2017-10-15 12:00)
DX: T82.818A Embolism due to vascular prosthetic devices, implants and grafts, initial encounter (principal); N18.6 End stage renal disease; I13.2 Hypertensive heart and chronic kidney disease with heart failure and with stage 5 chronic kidney disease, or end stage renal disease; Y83.8 Other surgical procedures as the cause of abnormal reaction of the patient, or of later complication, without mention of misadventure at the time of the procedure; E11.22 Type 2 diabetes mellitus with diabetic chronic kidney disease; I50.9 Heart failure, unspecified; I25.10 Atherosclerotic heart disease of native coronary artery without angina pectoris; Z95.1 Presence of aortocoronary bypass graft; H35.30 Unspecified macular degeneration; F41.9 Anxiety disorder, unspecified; F43.29 Adjustment disorder with other symptoms; F03.90 Unspecified dementia, unspecified severity, without behavioral disturbance, psychotic disturbance, mood disturbance, and anxiety

== ENCOUNTER 2018-03-14 06:49 | Day surgery (SDC) | payer MEDICARE ==
[~2018-03-14] VITALS: Ht 170.2 cm; Wt 102.1 kg
--- NOTE | ~2018-03-14 | OP ---
PATIENT NAME: LORETO DUGAN MEDICAL RECORD: [id number] :59 LOCATION:DJOÃO ADMISSION DATE: SURGEON: SIMBA OCONNOR MD DATE OF OPERATION: 03/14/2018 PREOPERATIVE DIAGNOSES: 1. End-stage renal disease. 2. Hypertension. 3. Coronary artery disease. 4. Congestive heart failure, undifferentiated. 5. Diabetes mellitus. POSTOPERATIVE DIAGNOSES: 1. End-stage renal disease. 2. Hypertension. 3. Coronary artery disease. 4. Congestive heart failure, undifferentiated. 5. Diabetes mellitus. PROCEDURE: Right upper extremity AV graft with 4 x 6 cm tapered graft. SURGEON: Simba Oconnor MD REPORT OF PROCEDURE: The patient's right upper extremity was prepped and draped in sterile fashion. A skin incision was made up in the axilla after we assessed the area with ultrasound. We dissected down through the subcutaneous tissues and was able to find the patient's right axillary artery. This was a fairly size, but had a lot of calcifications. We ended up placing vessel loops proximally and distally. We inspected the area to try and find an axillary vein, but none of the axillary veins were very large and 3 separate veins were found, all small in caliber and none of them I felt would be good for our anastomosis. With another ultrasound evaluation, we looked in the patient's right antecubital space. I was able to find an adequate sized vessel extending up to the cephalic vein. We ended up making a transverse incision overlying this and came around the vessel and placed vessel loops proximally and distally. At this point, the patient was given 5000 units of heparin IV. After an adequate amount of time was obtained, then a 4 x 6 cm tapered graft was run between the 2 incision sites. The 4 cm side was cut with a beveled tip and an arteriotomy was performed in the proximal axillary artery. An end-to-side anastomosis was performed using running 6-0 Prolene. At the conclusion of this, we had good pulsatile flow through the graft. The graft was then cut on the vascular and with a beveled tip and another venotomy was performed and an end-to-side anastomosis was performed again with a running 6-0 Prolene. At the conclusion of this, we had a good palpable thrill through the vessel with no signs of any active bleeding. The wounds were all irrigated out with normal saline and infused with 10 mL of 0.25% Marcaine with epinephrine. The skin incisions were reapproximated with interrupted 3-0 Vicryl and closed with running subcutaneous 5-0 Monocryl. COMPLICATIONS: None. CONDITION: Stable. ANESTHESIA: General endotracheal and local. OPERATIVE REPORT [id number] LORETO DUGAN BLOOD LOSS: 50 mL. TRANSINT:[id number] Voice Confirmation ID: [id number] DOCUMENT ID: [id number] SIMBA OCONNOR MD at 1714 CC: FATOU HARDIN MD [id number] DICTATION DATE: 03/14/18 1231 BOILER CONTROL ROOM OPERATOR: 03/14/18 1239 [facility] 03/14/18 [facility] [address] [place] [address]
[~2018-03-14 06:49] MED LIST changes: +XARELTO15 MG PO
[2018-03-14 07:24] LABS: EOSINOPHILS 2.6 % (0-7); HEMATOCRIT 39.7 % (36.0-48.0); HEMOGLOBIN 12.9 g/dL (12-16); IMMATURE GRANULOCYTES 0.2 % (0-5); LYMPHOCYTES 27.6 % (15-50); MCH 30.6 pg (26.0-34.0); MCHC 32.5 g/dL (31.0-37.0); MCV 94.1 fL (80.0-100.0); MEAN PLATELET VOLUME 9.4 fL (7.4-10.4); MONOCYTES 10.1 % (2-11); NEUTROPHILS 58.5 % (40-80); PLATELET COUNT 131 10x3/uL (130-400); RBC 4.22 10x6/uL (4.00-5.40); RDW 14.4 % (11.5-14.5); WBC 6.2 10x3/uL (4.8-10.8)
[2018-03-14 07:38] LABS: APTT 27.5 SECONDS (22.8-39.4); INR 1.04 (0.85-1.17); PROTIME 13.2 SECONDS (11.6-15.0)
[2018-03-14 07:43] LABS: ANION GAP 12.8 mmol/L (8-16); CALCIUM 9.4 mg/dL (8.5-10.1); CARBON DIOXIDE 26.6 mmol/L (21.0-32.0); CREATININE - SERUM 5.9 mg/dL (0.6-1.3); POTASSIUM - SERUM 4.4 mmol/L (3.5-5.1)
[2018-03-14 08:39] VITALS: BP 145/51; Ht 170.2 cm; Wt 102.1 kg
[2018-03-14] MEDS ORDERED: DILAUDID2 MG PO (13:38)
== END 2018-03-14 14:18 | disposition home or self-care (01) ==
LOC: D.OPS 06:49
PROVIDERS: Surgery
DX: I11.0 Hypertensive heart disease with heart failure (principal); N18.6 End stage renal disease; E11.9 Type 2 diabetes mellitus without complications; I50.9 Heart failure, unspecified

== ENCOUNTER 2018-10-17 09:16 | Day surgery (SDC) | payer MEDICARE ==
[~2018-10-17] VITALS: Ht 170.2 cm; Wt 99.8 kg
[2018-10-17 09:59] LABS: BASOPHILS 0.8 % (0-2); EOSINOPHILS 3.4 % (0-7); HEMATOCRIT 35.6 % (36.0-48.0); HEMOGLOBIN 11.5 g/dL (12-16); IMMATURE GRANULOCYTES 0.1 % (0-5); LYMPHOCYTES 24.6 % (15-50); MCH 31.2 pg (26.0-34.0); MCHC 32.3 g/dL (31.0-37.0); MCV 96.5 fL (80.0-100.0); MEAN PLATELET VOLUME 9.1 fL (7.4-10.4); NEUTROPHILS 61.1 % (40-80); PLATELET COUNT 172 10x3/uL (130-400); RBC 3.69 10x6/uL (4.00-5.40); RDW 13.1 % (11.5-14.5); WBC 7.7 10x3/uL (4.8-10.8)
[2018-10-17 10:18] LABS: CALCIUM 9.6 mg/dL (8.5-10.1); CARBON DIOXIDE 23.7 mmol/L (21.0-32.0); CREATININE - SERUM 8.5 mg/dL (0.6-1.3); INR 1.05 (0.85-1.17); PROTIME 13.2 SECONDS (11.6-15.0)
[2018-10-17 10:24] LABS: ANION GAP 19.4 mmol/L (8-16)
[2018-10-17 10:27] LABS: POTASSIUM - SERUM 6.1 mmol/L (3.5-5.1)
[2018-10-17] MEDS ORDERED: PEPCID AC20 MG PO (11:06)
[2018-10-17] MEDS ORDERED: RESTORIL15 MG PO (11:06)
[2018-10-17] MEDS ORDERED: VALIUM10 MG PO (11:07)
[2018-10-17 11:15] VITALS: BP 108/52; Ht 170.2 cm; Wt 99.8 kg
[2018-10-17] MEDS ORDERED: ULTRAM50 MG PO (14:33)
--- NOTE | 2018-10-17 15:15 | NUR ---
REC'D FROM RR. DRESSING DI TO RIGHT ARM. COFFEE BROUGHT TO PT. NO FAMILY IN ROOM.
--- NOTE | 2018-10-17 15:50 | NUR ---
CALLED [facility] AND LEFT MESSAGE FOR LUNCHROOM WORKER NAIL MAKER TO CALL [facility] OP.
--- NOTE | 2018-10-17 15:55 | NUR ---
SPOKE WITH RHONDA SMITH. RHONDA HINSON RELATED FROM RENAL STAND POINT PATIENT WILL DIALYZE TOMORROW AT HER CHRONIC UNIT AND IS CLEAR FOR DC.
--- NOTE | 2018-10-17 16:00 | NUR ---
TOLERATED FL DIET. IV DC'D WITH CATHETER INTACT.
--- NOTE | 2018-10-17 16:35 | NUR ---
WRITTEN AND VERBAL DC INST. GIVEN TO PT ALONG WITH RX. VERBALIZED UNDERSTANDING.
--- NOTE | 2018-10-17 16:40 | NUR ---
DC'D HOME VIA PUBLIC TRANSPORTATION. TAKEN TO VEHICLE VIA . STABLE AT TIME OF DC.
--- NOTE | 2018-10-23 16:09 | OP ---
PATIENT NAME: LORETO DUGAN MEDICAL RECORD: [id number] :57 LOCATION:D[facility]ÃO ADMISSION DATE: SURGEON: SIMBA OCONNOR MD DATE OF OPERATION: 10/17/2018 PREOPERATIVE DIAGNOSES: 1. Clotted right upper extremity arteriovenous graft. 2. End-stage renal disease. 3. Hypertension. 4. Coronary artery disease. 5. Diabetes mellitus. 6. IODINE ALLERGY. POSTOPERATIVE DIAGNOSES: 1. Clotted right upper extremity arteriovenous graft. 2. End-stage renal disease. 3. Hypertension. 4. Coronary artery disease. 5. Diabetes mellitus. 6. IODINE ALLERGY. PROCEDURE: Mechanical thrombectomy of the right upper extremity AV graft. SURGEON: Simba Oconnor MD REPORT OF PROCEDURE: The patient's right upper extremity was prepped and draped in sterile fashion. A longitudinal incision was made overlying the graft. Electrocautery was used to dissect through the subcutaneous tissues. A longitudinal incision was made in the graft. There was no flow felt and we tried to milk some of the clot out of this area. We then passed a #4 Sony catheter proximally towards the axilla and were able to remove a large amount of clot and at this point, we had pulsatile flow from the arterial anastomosis. The patient was given 5000 units of heparin IV. We then were able to pass the Sony catheter distally towards the elbow and again removed a large amount of clot and began having nonpulsatile, but brisk flow through the vessel from the venous anastomosis. At this point, we ran a #5 Sony catheter proximally and distally and we found no further clot. The areas were flushed with heparinized saline. Pressure was applied to the proximal and distal limbs and we closed the graftotomy using interrupted 6-0 Prolenes. There was no evidence of any bleeding at this portion of the case. The subcutaneous tissues were irrigated out and then the skin was closed with running subcutaneous 5-0 Monocryl. The patient had a good palpable thrill present at the conclusion of the case. We did not perform a fistulogram because the patient had an IODINE ALLERGY and was not premedicated. COMPLICATIONS: None. CONDITION: Stable. ANESTHESIA: General endotracheal. BLOOD LOSS: 200 mL. TRANSINT:[id number] Voice Confirmation ID: [id number] DOCUMENT ID: [id number] OPERATIVE REPORT [id number] LORETO DUGAN SIMBA OCONNOR MD at 1609 CC: FATOU HARDIN MD [id number] DICTATION DATE: 10/17/18 1441 DRAG OUT MAN: 10/17/18 1554 [facility] 10/17/18 [address] [place] [address]
== END 2018-10-17 16:40 | disposition home or self-care (01) ==
LOC: D.OPS 09:16
PROVIDERS: Anesthesiology; ATTEND Surgery
DX: T82.868A Thrombosis due to vascular prosthetic devices, implants and grafts, initial encounter (principal); E11.22 Type 2 diabetes mellitus with diabetic chronic kidney disease; I12.0 Hypertensive chronic kidney disease with stage 5 chronic kidney disease or end stage renal disease; N18.6 End stage renal disease; Z99.2 Dependence on renal dialysis; Z88.8 Allergy status to other drugs, medicaments and biological substances; Z01.812 Encounter for preprocedural laboratory examination

== ENCOUNTER 2018-10-22 06:17 | Day surgery (SDC) | payer MEDICARE ==
[~2018-10-22 06:17] MED LIST changes: +PEPCID AC20 MG PO; +RESTORIL15 MG PO; +ULTRAM50 MG PO; +VALIUM10 MG PO
[2018-10-22 07:20] LABS: APTT 27.2 SECONDS (22.8-39.4); INR 1.12 (0.85-1.17); PROTIME 13.9 SECONDS (11.6-15.0)
[2018-10-22 07:23] LABS: BASOPHILS 0.4 % (0-2); HEMATOCRIT 32.3 % (36.0-48.0); HEMOGLOBIN 10.4 g/dL (12-16); IMMATURE GRANULOCYTES 0.1 % (0-5); LYMPHOCYTES 30.8 % (15-50); MCH 30.4 pg (26.0-34.0); MCHC 32.2 g/dL (31.0-37.0); MCV 94.4 fL (80.0-100.0); MEAN PLATELET VOLUME 9.2 fL (7.4-10.4); MONOCYTES 8.8 % (2-11); NEUTROPHILS 55.9 % (40-80); PLATELET COUNT 157 10x3/uL (130-400); RBC 3.42 10x6/uL (4.00-5.40); WBC 8.4 10x3/uL (4.8-10.8)
[2018-10-22 07:46] LABS: ANION GAP 19.1 mmol/L (8-16); CALCIUM 9.1 mg/dL (8.5-10.1); CREATININE - SERUM 9.4 mg/dL (0.6-1.3); POTASSIUM - SERUM 5.1 mmol/L (3.5-5.1)
--- NOTE | 2018-10-22 09:00 | NUR ---
WAS IN THE PROCESS OF GA-OPING THE PATIENT WHEN DR OCONNOR CAME IN AND SPOKE WITH PATIENT. DR OCONNOR CANCELLED THE HEMOSPLIT PLACEMENT WITH POSITIVE FEEDBACK FROM PATIENT. ADMITTING PATIENT TO MEDICAL FLOOR TO FOLLOW-UP WITH SURGERY TOMORROW.
--- NOTE | 2018-10-22 09:30 | NUR ---
SPOKE WITH DYED RAW STOCK BLOWER FEEDER. NO BED AVAILABLE FOR TRANSFER AT THIS TIME.
--- NOTE | 2018-10-22 10:20 | NUR ---
CALLED PHARMACY REGARDING OTILIO FLANNERY'S SCHEDULED MEDS.
--- NOTE | 2018-10-22 10:39 | NUR ---
CALLED ANESTHESIA REGARDING STARTING AN IV ON PT. ATTEMPTED X2 BY Bob CARLSON RN UNSUCCESSFULLY.
--- NOTE | 2018-10-22 11:01 | NUR ---
CALLED AND LEFT MESSAGE FOR OMARI JOYNER, MACHINE WORKER NURSE REGARDING STARTING AN IV.
--- NOTE | 2018-10-22 11:20 | NUR ---
ATTEMPTED TO CALL REPORT. NURSE DID NOT COME TO THE TELEPHONE. WILL ADMINISTER MEDS AND TRY TO CALL REPORT AGAIN. IV SITED TO LEFT WRIST WITH 24G CATHETER BY Cherie CALIXTO RN.
--- NOTE | 2018-10-22 11:51 | NUR ---
REPORT CALLED TO NORMAN VEGA LPN. TRANSFERRING PT VIA BED. TO ROOM 210.
--- NOTE | 2018-10-22 12:04 | NUR ---
RECEIVED PT FROM OUTPATIENT. PT IS AAO AND UP WITH ASSIST. PT IS LEGALLY BLIND. VSS AND WNL. NO S/S OF DISTRESS NOTED. PT DENIES ANY NEEDS AT THIS TIME. RR EVEN AND UNLABORED ON RA. PT CURRENTLY LYING SEMI FOWLERS CALL LIGHT W/I REACH. WILL CTM.
[2018-10-22 12:18] VITALS: BP 163/65; BMI 33.1
--- NOTE | 2018-10-22 19:54 | NUR ---
RESUMING PT CARE. PT IS ALERT LAYING IN BED. NO C/O VOICED. PT IS LEGALLY BLIND. NO S/S OF DISTRESS NOTED. RESPIRATIONS EVEN AND UNLABORED. BED IN LOW POSITION WITH CALL LIGHT IN REACH. SIDE RAILS UP X 2. WILL CONTINUE TO MONITOR PT AND FOLLOW PLAN OF CARE.
[2018-10-22 20:00] VITALS: BP 140/55
[2018-10-23] VITALS: BP 132/50
--- NOTE | 2018-10-23 03:00 | NUR ---
I have reviewed this patient and I concur with the Shift Assessment completed by the Licensed Practical Nurse today this shift.
[2018-10-23 04:00] VITALS: BP 96/54
[2018-10-23 04:37] LABS: HEMATOCRIT 29.3 % (36.0-48.0); HEMOGLOBIN 8.7 g/dL (12-16); MCHC 29.7 g/dL (31.0-37.0); MCV 94.2 fL (80.0-100.0); MEAN PLATELET VOLUME 9.5 fL (7.4-10.4); PLATELET COUNT 158 10x3/uL (130-400); RBC 3.11 10x6/uL (4.00-5.40); RDW 12.8 % (11.5-14.5); WBC 7.9 10x3/uL (4.8-10.8)
[2018-10-23 04:48] LABS: CALCIUM 8.7 mg/dL (8.5-10.1); CARBON DIOXIDE 25.2 mmol/L (21.0-32.0); CREATININE - SERUM 10.1 mg/dL (0.6-1.3); POTASSIUM - SERUM 5.2 mmol/L (3.5-5.1)
[2018-10-23 05:05] LABS: BASOPHILS 1 % (0-2); EOSINOPHILS 3 % (0-7); LYMPHOCYTES 22 % (15-50); MONOCYTES 11 % (2-11); NEUTROPHILS 63 % (40-80); PLATELET ESTIMATE NORMAL
[2018-10-23 07:46] VITALS: BP 119/53
[2018-10-23 09:59] VITALS: BMI 33.0
--- NOTE | 2018-10-23 11:38 | NUR ---
CONSENTS SIGNED AND OBTAINED IN CHART FOR PROCEDURE TODAY. PTS L.WRIST INFILTRATED. D/C WITH CATHETER TIP FULLY INTACT. NEW 22 GUAGE PIV INSERTED TO PTS L.FA X2 STICKS. DATED, INITIALLED AND SL WITH SWAB CAPS IN USE. PT VOICED THANKS AND IS WAITING PATIENTLY STILL NPO. NO CURRENT NEEDS. WILL CTM.
[2018-10-23 11:39] VITALS: BP 121/50
--- NOTE | 2018-10-23 14:15 | NUR ---
PT C/O HEADACHE REQUESTING TYLENOL. PAGED ART CLASS MODEL PHYSICIAN AND REC'D NEW ORDER AND WILL PROVIDE TO PT. PT VOICED THANKS AND DENIES ANY FURTHER NEEDS AT THIS TIME. PT REMAINS NPO AND IS WAITING ON HER PROCEDURE.
--- NOTE | 2018-10-23 15:00 | NUR ---
PT LEAVING FOR SURGERY NOW. NO CURRENT NEEDS.
--- NOTE | 2018-10-23 17:21 | NUR ---
PT STILL GONE TO PROCEDURE. NO UPDATE OR NEEDS AT THIS TIME.
--- NOTE | 2018-10-23 18:12 | NUR ---
RAISED HEAD OF BED UP PT. STATED"BETTER ALREADY EKG IN PROGRESS
--- NOTE | 2018-10-23 18:12 | NUR ---
C\O CHEST PAIN @1804 EKG ORDERED
--- NOTE | 2018-10-23 18:17 | NUR ---
EKG REPORTED NO CHANGE PER DR EDMONDS
--- NOTE | 2018-10-23 18:24 | NUR ---
PT. REPORTED "NO MORE CHEST PAIN OR ARM PAIN" [id number]
[2018-10-23 18:48] VITALS: BP 131/52
--- NOTE | 2018-10-23 19:34 | NUR ---
PT BACK FROM PROCEDURE AWAKE A&O SITTING UP IN BED READY TO EAT. TRAY PROVIDED. VSS AND BEING MONITERED PER POST PROCEDURE POLICY. R.ARM FISTULA NOW HAS BRUIT AND THRILL. NEW DRSG CDI NO S/S OF BLEEDING OR HEMATOMA NOTED. PAGED GOVERNMENT RELATIONS MANAGER RENAL TO INQUIRE ABOUT DIALYSIS ITS HER DAY TODAY. NO CURRENT NEEDS. WILL CTM.
[2018-10-23 20:00] VITALS: BP 142/54
--- NOTE | 2018-10-24 03:19 | NUR ---
I have reviewed this patient and I concur with the Shift Assessment completed by the Licensed Practical Nurse today this shift.
[2018-10-24 04:00] VITALS: BP 136/50
[2018-10-24 05:01] LABS: ANION GAP 23.6 mmol/L (8-16); CARBON DIOXIDE 20.5 mmol/L (21.0-32.0)
[2018-10-24 05:02] LABS: BASOPHILS 0.3 % (0-2); EOSINOPHILS 0.4 % (0-7); HEMATOCRIT 30.2 % (36.0-48.0); HEMOGLOBIN 9.8 g/dL (12-16); IMMATURE GRANULOCYTES 0.1 % (0-5); LYMPHOCYTES 19.4 % (15-50); MCH 30.5 pg (26.0-34.0); MCHC 32.5 g/dL (31.0-37.0); MCV 94.1 fL (80.0-100.0); MEAN PLATELET VOLUME 9.1 fL (7.4-10.4); MONOCYTES 5.6 % (2-11); NEUTROPHILS 74.2 % (40-80); PLATELET COUNT 139 10x3/uL (130-400); POTASSIUM - SERUM 6.1 mmol/L (3.5-5.1); RBC 3.21 10x6/uL (4.00-5.40); RDW 12.5 % (11.5-14.5); WBC 7.5 10x3/uL (4.8-10.8)
[2018-10-24 07:56] VITALS: BP 132/57
--- NOTE | 2018-10-24 08:49 | OP ---
PATIENT NAME: LORETO DUGAN MEDICAL RECORD: [id number] :59 LOCATION:D.M2 D.2101 ADMISSION DATE: SURGEON: MELISSA OCONNOR MD DATE OF OPERATION: 10/23/2018 PREOPERATIVE DIAGNOSES: 1. Clotted right upper extremity arteriovenous graft. 2. End-stage renal disease. POSTOPERATIVE DIAGNOSES: 1. Clotted right upper extremity arteriovenous graft. 2. End-stage renal disease. PROCEDURE: 1. Right upper extremity mechanical thrombectomy. 2. Right upper extremity fistulogram. 3. A 4 x 40 millimeter angioplasty balloon of arterial and venous anastomoses. SURGEON: Melissa Oconnor MD REPORT OF PROCEDURE: The patient's right upper extremity was prepped and draped in sterile fashion. A longitudinal incision was made over the middle aspect of the patient's AV graft on the right upper arm. We were able to get a vessel loop around the graft proximally and distally and a longitudinal opening was made in the graft. There was no flow through the graft and there was a large amount of clot present. A 4-mm Sony balloon was placed distally toward the venous anastomosis, going down towards the elbow. Some clot was removed and there was some nonpulsatile flow present through the vessel. We shot some dye down through the vessel and could see there was maybe some stenosis of the venous anastomosis near the elbow, but otherwise there was good flow going up the arm and up the basilic vein and into the axillary vein and no stenoses seen. We then ran the Sony balloon proximally to the arterial anastomosis up towards the axilla. Following this, there was good brisk pulsatile flow present. A fistulogram was performed and it showed adequate size arterial anastomosis with just maybe some 25-30% stenosis. There was good brisk flow going through the vessel with no evidence of a clot. At this point, we placed a 5-Greek Angiocath and approached the distal aspect where the venous end first and I was able to do a 4 x 40 mm balloon angioplasty of the venous anastomosis. At the conclusion of this, there did not appear to be any clot and there was a brisk flow through the vessel. We turned it around and placed the catheter in the arterial end and was able to run a 0.035 Glidewire through the anastomosis on the arterial aspect of the axillary artery to the AV graft and again ran a 4 x 40 mm angioplasty balloon over the anastomosis. At the conclusion of this, there appeared to be good brisk flow present through the vessel. We checked one last time with performing a fistulogram and at this point there was evidence of a clot present at the most distal aspect of the AV graft at the venous anastomosis. The Sony balloon was run one more time through this and there was a return of a small amount of clot. Following this, we had good brisk flow through the vessel and a final fistulogram showed no evidence of a clot present and good blood brisk flow through the vessel extending down to the antecubital vein and up the basilic vein toward the axilla. There was a spillage of some contrast from a small branch vessel on the posterior aspect of the arm, but this did not appear to be very significant. We closed up the graftotomy using running 7-0 Prolenes. At the conclusion of the case, there was no bleeding from the graftotomy, but there was a large hematoma that was forming posteriorly. We OPERATIVE REPORT [id number] LORETO DUGAN applied pressure to the area and this appeared to discontinue any of the continued swelling. We then irrigated out the wound with normal saline and closed the skin with a running 5-0 Monocryl. At the conclusion of the case, the patient had a palpable thrill present near the antecubital vessels and the hematoma did not appear to be expanding. A pressure dressing was applied to the arm. COMPLICATIONS: None. CONDITION: Stable. ANESTHESIA: General endotracheal. BLOOD LOSS: 200 mL. TRANSINT:[id number] Voice Confirmation ID: [id number] DOCUMENT ID: [id number] MELISSA OCONNOR MD at 0849 CC: [id number] DICTATION DATE: 10/23/18 175 STABLEHAND: 10/23/18 1813 REG [facility] [address] [place] [address]
[2018-10-24 11:37] VITALS: BP 121/62
--- NOTE | 2018-10-24 15:00 | NUR ---
PT STILL WAITING PATIENTLY TO HAVE DIALYSIS. PT AMBULATED TO WITH HER CANE AND STATES SHE IS FEELING STRONGER. DENIES ANY CURRENT PAIN OR NEEDS. WILL CTM.
--- NOTE | 2018-10-24 15:30 | NUR ---
PT C/O CHEST PAIN AND STATES "IT FEELS LIKE AN ELEPHANT IS SITTING ON MY CHEST" PT STATES SHE CANT TELL IF IT MAY BE HER HEARTBURN. PT HAD TUMS IN HER PURSE AND TOOK THEM. STAT EKG PERFORMED AND VITALS TAKEN. VSS. EKG TO BE READ BUT NO ACUTE ISSUES NOTED. AFTER PT TOOK HER TUMS SHE STATES SHE IS FEELING BETTER AND THINKS IT WAS JUST HEARTBURN OR LACK OF DIALYSIS. PT IS REALLY NEEDING TO HAVE HER DIALYSIS TODAY. WILL CTM.
[2018-10-24 15:56] VITALS: BP 149/62
--- NOTE | 2018-10-24 15:56 | NUR ---
DIALYSIS CALLED FOR PT. PT BROUGHT DOWN VIA BED. NO ISSUES WILL CTM.
--- NOTE | 2018-10-24 19:25 | NUR ---
NOTED PT HAS RETURNED FROM DIALISYS POST REPORT OF 2L OFF AND STABLE VS...BED LOW PT EATING EVENING MEAL AND DENIES NEEDS STATES CHEST FEELS BETTER LCTA SKIN WARM AND DRY.
[2018-10-24 20:00] VITALS: BP 109/53
--- NOTE | 2018-10-24 23:02 | NUR ---
FAILED TO INCLUDE IN ASSESSMENT THAT RT ARM IS RESEVED
[2018-10-25] VITALS: BP 118/58
--- NOTE | 2018-10-25 03:30 | NUR ---
I have reviewed this patient and I concur with the Shift Assessment completed by the Licensed Practical Nurse today this shift.
[2018-10-25 04:00] VITALS: BP 138/50
[2018-10-25 08:18] VITALS: BP 111/38
--- NOTE | 2018-10-25 08:28 | NUR ---
AM ROUNDS COMPLETED. SHIFT ASSESSMENT COMPLETED. PT IS HOPING TO BE DISCHARGED TODAY. WILL HAVE DIALYSIS AGAIN TO GET BACK ON HER NORMAL SCHEDULE. MORNING MEDICATIONS GIVEN AND PT SWALLOWED WITHOUT ANY DIFFICULTIES. PT DENIES ANY CURRENT PAIN OR NEEDS AT THIS TIME. CL IN REACH, WILL WAIT TO SEND TO DIALYSIS FOR THEM TO BE READY.
[2018-10-25] MEDS ORDERED: ELIQUIS5 MG PO (08:34)
--- NOTE | 2018-10-25 10:47 | NUR ---
DIALYSIS CALLED FOR PT. PT LEAVING NOW VIA BED THEN CAN BE DISCHARGED.
--- NOTE | 2018-10-25 12:40 | NUR ---
PT BACK FROM DIALYSIS A&O SITTING UP ON EDGE OF BED EATING LUNCH. PT STATES SHE IS FEELING MUCH BETTER NOW AND READY TO GO HOME. WILL GET DISCHARGE PAPERS READY. NO CURRENT NEEDS.
--- NOTE | 2018-10-25 13:17 | NUR ---
DISCHARGE TEACHING PROVIDED AND PAPERS SIGNED. PT VERBALIZED UNDERSTANDING AND DENIES ANY QUESTIONS OR CONCERNS. ALL BELONGINGS COLLECTED AND BAGGED FOR PT. D/C PTS L.FA PIV WITH CATHETER TIP FULLY INTACT. PTS SON HERE FOR TRANSPORTATION WILL CALL FOR A WHEELCHAIR AT THIS TIME.
== END 2018-10-25 13:25 | disposition home or self-care (01) ==
LOC: D.OPS 06:17 → D.M2 06:17 → D.OPS 09:00 → D.M2 11:52 → D.OPS 10-25 13:25
PROVIDERS: Anesthesiology; ATTEND Surgery
DX: T82.868A Thrombosis due to vascular prosthetic devices, implants and grafts, initial encounter (principal); E11.22 Type 2 diabetes mellitus with diabetic chronic kidney disease; I13.2 Hypertensive heart and chronic kidney disease with heart failure and with stage 5 chronic kidney disease, or end stage renal disease; I50.9 Heart failure, unspecified; N18.6 End stage renal disease; Z99.2 Dependence on renal dialysis; E11.40 Type 2 diabetes mellitus with diabetic neuropathy, unspecified; E07.9 Disorder of thyroid, unspecified; I25.10 Atherosclerotic heart disease of native coronary artery without angina pectoris; Z95.1 Presence of aortocoronary bypass graft; M19.90 Unspecified osteoarthritis, unspecified site; F32.9 Major depressive disorder, single episode, unspecified; F41.9 Anxiety disorder, unspecified; Z88.5 Allergy status to narcotic agent; Z88.8 Allergy status to other drugs, medicaments and biological substances; Z79.82 Long term (current) use of aspirin; Z79.899 Other long term (current) drug therapy; Z87.891 Personal history of nicotine dependence; Z01.812 Encounter for preprocedural laboratory examination

== ENCOUNTER → 2019-06-15 12:46 | Outpatient (CLI) | payer MEDICARE ==
[~2019-06-15 12:46] MED LIST changes: +ELIQUIS5 MG PO
== END | disposition home or self-care (01) ==
LOC: D.US 05-11 14:00
PROVIDERS: ATTEND Surgery
DX: N18.6 End stage renal disease (principal)

== ENCOUNTER 2019-06-29 14:14 | Inpatient (IN) | payer MEDICARE ==
[~2019-06-29] VITALS: Ht 170.2 cm; Wt 91.6 kg
[2019-06-29 17:46] LABS: BASOPHILS 0.9 % (0-2); EOSINOPHILS 4.2 % (0-7); HEMATOCRIT 31.3 % (36.0-48.0); HEMOGLOBIN 9.5 g/dL (12-16); IMMATURE GRANULOCYTES 0.2 % (0-5); LYMPHOCYTES 37.6 % (15-50); MCH 29.4 pg (26.0-34.0); MCHC 30.4 g/dL (31.0-37.0); MCV 96.9 fL (80.0-100.0); MEAN PLATELET VOLUME 8.8 fL (7.4-10.4); MONOCYTES 8.5 % (2-11); NEUTROPHILS 48.6 % (40-80); RBC 3.23 10x6/uL (4.00-5.40); RDW 14.6 % (11.5-14.5); WBC 9.6 10x3/uL (4.8-10.8)
[2019-06-29 17:50] LABS: PLATELET COUNT 218 10x3/uL (130-400)
[2019-06-29 17:55] LABS: INR 1.11 (0.85-1.17); PROTIME 14.3 SECONDS (11.6-15.0)
[2019-06-29 17:58] LABS: APTT 138.1 SECONDS (22.8-39.4); CALC OSMOLALITY 282 mosm/kg (275-300); CALCIUM 9.5 mg/dL (8.5-10.1); CHLORIDE - SERUM 100 mmol/L (98-107); GLUCOSE 78 mg/dL (74-106); POTASSIUM - SERUM 4.2 mmol/L (3.5-5.1); SODIUM 138 mmol/L (136-145); UREA NITROGEN 36 mg/dL (7-18); eGFR NON AFRICAN AMERICAN 7 mL/min (90-120)
[2019-06-29 18:15] LABS: ALBUMIN 3.2 g/dL (3.4-5.0); ALKALINE PHOSPHATASE 49 U/L (46-116); ALT (SGPT) 10 U/L (10-68); BILIRUBIN - TOTAL 0.37 mg/dL (0.2-1.3); CREATINE KINASE 55 UL (21-215); PROTEIN - SERUM 7.1 g/dL (6.4-8.2)
[2019-06-29 18:26] LABS: TROPONIN-I < 0.017 ng/mL (0.000-0.060)
--- NOTE | 2019-06-29 18:32 | NUR ---
WOUND CULTURE SWAB SENT TO LAB AT THIS TIME.
--- NOTE | 2019-06-29 19:10 | NUR ---
HAND-OFF REPORT GIVEN TO MARINE WILKINSON
--- NOTE | 2019-06-29 19:27 | NUR ---
PT SITTING UPRIGHT IN BED. PT UPDATED ON PLAN OF CARE.
--- NOTE | 2019-06-29 19:32 | NUR ---
PT LEFT ED VIA WC. PT PROVIDED SANDWICH BOX.
--- NOTE | 2019-06-29 19:46 | NUR ---
PATIENT TO THE FLOOR VIA WHEELCHAIR. ABLE TO TRANSFER TO HOSPITAL BED WITH LITTLE ASSISTANCE. CALL LIGHT WITHN REACH AND BED IN LOWEST LOCKED POSITION.
[2019-06-29 20:00] VITALS: BP 160/73
[2019-06-29 22:11] VITALS: BP 160/73; BMI 31.7
[2019-06-30] VITALS: BP 160/71
[2019-06-30 04:00] VITALS: BP 152/71
[2019-06-30 05:09] LABS: BASOPHILS 0.6 % (0-2); EOSINOPHILS 4.5 % (0-7); HEMATOCRIT 32.8 % (36.0-48.0); HEMOGLOBIN 10.1 g/dL (12-16); IMMATURE GRANULOCYTES 0.4 % (0-5); LYMPHOCYTES 27.8 % (15-50); MCH 29.9 pg (26.0-34.0); MCHC 30.8 g/dL (31.0-37.0); MEAN PLATELET VOLUME 10.2 fL (7.4-10.4); MONOCYTES 8.8 % (2-11); NEUTROPHILS 57.9 % (40-80); RBC 3.38 10x6/uL (4.00-5.40); RDW 14.5 % (11.5-14.5); WBC 7.8 10x3/uL (4.8-10.8)
[2019-06-30 05:26] LABS: PLATELET COUNT 119 10x3/uL (130-400)
[2019-06-30 05:28] LABS: ALBUMIN 3.2 g/dL (3.4-5.0); ANION GAP 16.1 mmol/L (8-16); BILIRUBIN - TOTAL 0.32 mg/dL (0.2-1.3); CALCIUM 9.4 mg/dL (8.5-10.1); CARBON DIOXIDE 25.2 mmol/L (21.0-32.0); CREATININE - SERUM 6.5 mg/dL (0.6-1.3); POTASSIUM - SERUM 4.3 mmol/L (3.5-5.1); PROTEIN - SERUM 6.6 g/dL (6.4-8.2)
--- NOTE | 2019-06-30 06:12 | NUR ---
TALKED WITH SURGERY, PATIENT STATED SHE IS NOT SIGNING CONSENT FORMS UNTIL SHE TALKS WITH THE SURGEON. PATIENT STATES SHE DOES NOT WANT TO HAVE ANYTHING DONE WITH FISTULAS. RELAYED THIS TO SURGERY.
[2019-06-30 07:58] VITALS: BP 134/56
--- NOTE | 2019-06-30 08:30 | NUR ---
PATIENT WHEELED DOWN TO DIALYSIS.
[2019-06-30 12:00] VITALS: BP 130/62
--- NOTE | 2019-06-30 14:10 | NUR ---
OFFERED PATIENT SCD'S. SHE REFUSED. I EXPLAINED THE IMPORTANCE. SHE VERBALIZED UNDERSTANDING AND REFUSED AGAIN. CL IN REACH. MARIA TERESATM
[2019-06-30 15:14] VITALS: Ht 170.2 cm; Wt 91.6 kg
[2019-06-30 15:42] VITALS: BP 102/64
--- NOTE | 2019-06-30 19:20 | NUR ---
PATIEN RESTING IN BED WITH EYES OPEN. NO ACUTE S/S OF DISTRESS. NO COMPLAINTS AT THIS TIME. PATIENT IV IN L WRIST AND SALINE LOC. IV IS PATENT WITHOUT REDNESS, SWELLING OR TENDERNESS. PATIENT HAS THREE FISTULAS, TWO ON L ARM AND ONE ON R ARM. ALL FISTULAS ARE NON-FUNCTIONAL, WITH NO THRILL. PATIENT HAS A R HEMOSPLIT. PATIENT IS LEGALLY BLIND. CALL LIGHT IN PLACE. WILL CONTINUE TO MONITOR.
[2019-06-30 20:27] VITALS: BP 110/80
--- NOTE | 2019-06-30 23:49 | NUR ---
PT LYING IN BED WITH EYES CLOSED. NO SIGNS OR SYMPTOMS OF DISTRESS. RESPIRATIONS EVEN AND UNLABORED. PT OBSERVED REPOSITIONING. WILL CONTINUE TO MONITOR.
[2019-07-01 00:56] VITALS: BP 99/50
--- NOTE | 2019-07-01 04:43 | NUR ---
PT RESTING IN BED WITH EYES CLOSED NO SIGNS OR SYMPTOMS OF DISTRESS NOTED. IV LEFT WRIST SALINE LOCKED. RESPIRATIONS EVEN AND UNLABORED. CONTINENT OF BOWELL AND BLADDER. BOWELL SOUNDS ACTIVE x4 NO COMPLAINTS OF PAIN AT THIS TIME. ALERT AND ORIENTED x4. PT ADVISED TO CALL FOR HELP WHEN GETTING IN AND OUT OF BED. BED IN LOWEST POSITION AND CALL LIGHT IS WITHIN REACH. WILL CONTINUE TO MONITOR.
[2019-07-01 05:19] VITALS: BP 119/48
[2019-07-01 06:35] LABS: BASOPHILS 0.7 % (0-2); HEMATOCRIT 31.3 % (36.0-48.0); HEMOGLOBIN 9.7 g/dL (12-16); IMMATURE GRANULOCYTES 0.3 % (0-5); MCH 29.7 pg (26.0-34.0); MCV 95.7 fL (80.0-100.0); MEAN PLATELET VOLUME 9.7 fL (7.4-10.4); MONOCYTES 12.5 % (2-11); NEUTROPHILS 53.5 % (40-80); RBC 3.27 10x6/uL (4.00-5.40); RDW 14.7 % (11.5-14.5); WBC 9.5 10x3/uL (4.8-10.8)
[2019-07-01 06:37] LABS: PLATELET COUNT 202 10x3/uL (130-400)
[2019-07-01 07:09] LABS: ANION GAP 14.5 mmol/L (8-16); CALCIUM 8.4 mg/dL (8.5-10.1); CARBON DIOXIDE 26.9 mmol/L (21.0-32.0); CREATININE - SERUM 5.6 mg/dL (0.6-1.3); PHOSPHOROUS 5.3 mg/dL (2.5-4.9); POTASSIUM - SERUM 4.4 mmol/L (3.5-5.1)
[2019-07-01 10:38] VITALS: BP 132/69
[2019-07-01] MEDS ORDERED: AMOX TR-K CLV 21 TAB PO ×2 (11:06→11:24)
[2019-07-01] MEDS ORDERED: MOBIC7.5 MG PO (11:07)
--- NOTE | 2019-07-01 11:28 | NUR ---
PT WILL BE ABLE TO DISCHARGE AFTER HER ECHO AND ULTRASOUND ARE COMPLETED. DISCUSSED WITH BOTH DEPARTMENTS AND THEY WILL COME WHEN THEY CAN. PT VERY EXCITED TO HEAR THIS AND WANTS TO GO HOME. NO CURRENT NEEDS AT THIS TIME. WILL CTM.
--- NOTE | 2019-07-01 11:54 | NUR ---
MANAGER FINANCE AND ULTRASOUND AT BEDSIDE FOR ORDERED TEST. SON AT BEDSIDE. NO CURRENT NEEDS. WILL CTM.
--- NOTE | 2019-07-01 13:45 | NUR ---
D/C PTS L.WRIST PIV WITH CATHETER TIP FULLY INTACT. DISCHARGE TEACHING PROVIDED AND PAPERS SIGNED. PT HAS ALL BELONGINGS COLLECTED AND SON IS AT BEDSIDE FOR TRANSPORTATION. NO FURTHER NEEDS. WILL ESCORT PT DOWN AT THIS TIME.
--- NOTE | 2019-07-01 17:22 | MORECARE ---
CASE MANAGEMENT DISCHARGE SUMMARY PATIENT: LORETO DUGAN UNIT: [id number] ADM DATE: 06/29/19 AGE: 64 : 59 SEX: F ROOM/BED: D.2101 AUTHOR: LUCIO MCKAY PHYSICIAN: REFERRING PHYSICIAN: FATOU HARDIN MD DATE OF SERVICE: 07/01/19 Discharge Plan Patient Name: LORETO DUGAN [facility] [facility] 1955 Planned Disposition: Home Anticipated Discharge Date: 07/01/19 Discharge Date: 07/01/2019 Expected LOS: 2 Initial Reviewer: [email or web address] Initial Review Date: 07/01/2019 Generated: 07/01/19 6:22 pm Patient Name: LORETO DUGAN Page [phone] at 1722 All edits/amendments must be made on the electronic document DICTATION DATE: 07/01/191721 BRASS BURNISHER: MICHAEL 07/01/191721 RPT#: [id number] DC DATE:07/01/19 STATUS: DIS IN [facility] [address] [place] [place] [address] END OF REPORT
--- NOTE | 2019-07-01 17:31 | MORECARE ---
CASE MANAGEMENT DISCHARGE SUMMARY PATIENT: LORETO DUGAN UNIT: [id number] ADM DATE: 06/29/19 AGE: 64 : 59 SEX: F ROOM/BED: D.5328 AUTHOR: LUCIO MCKAY PHYSICIAN: REFERRING PHYSICIAN: FATOU AVERY MD DATE OF SERVICE: 07/01/19 Discharge Plan Patient Name: LORETO DUGAN Facility: [facility]:[place] : 1955 Planned Disposition: Home Anticipated Discharge Date: 07/01/19 Discharge Date: 07/01/2019 Expected LOS: 2 Initial Reviewer: [email or web address] Initial Review Date: 07/01/2019 Generated: 07/01/19 6:30 pm Comments DCP- Discharge Planning Updated by [email or web address]: Loy Ledbetter on 07/01/19 4:[address] Patient Name: LORETO DUGAN Admission Status: ER Accout number: [id number] Admission Date: 06-29-2019 : 1955 Admission Diagnosis: Attending: Fatou Avery Current LOS: 2 Anticipated DC Date: 07-01-2019 Planned Disposition: Home Primary Insurance: MEDICARE A & B Discharge Planning Comments: CM MET WITH PT IN ROOM TO DISCUSS DISCHARGE PLANNING AND NEEDS. PT REPORTS LIVING AT HOME INDEPENDENTLY WITH SPOUSE. PT HASCANE AND WALKER WITH NO MEDICAL EQUIPMENT PROVIDER PREFERENCE. PT HAS OUTPATIENT DIALYSIS AT [facility], 0630AM, VIA MEDICAID BUS. PT HAS NO OUTSIDE SERVICES ASSISTING IN THE HOME. CM DISCUSSED AVAILABILITY OF HOME HEALTH, REHAB SERVICES AND MEDICAL EQUIPMENT. PT DENIES DISCHARGE NEEDS, REPORTS HER SPOUSE WILL PICK HER UP FOR DISCHARGE HOME. Camera Person: Loy Ledbetter DCPIA - Discharge Planning Initial Assessment Updated by [email or web address]: Loy Ledbetter on 07/01/19 5:26 pm * Is the patient Alert and Oriented? Yes * How many steps to enter\exit or inside your home? * PCP DR. GATES * Pharmacy [facility] IN [place] * Preadmission Environment Home with Family * ADLs Independent * Equipment Cane Walker * Other Equipment [facility] * List name and contact numbers for known caregivers / representatives who currently or will assist patient after discharge: SUSAN DUGAN, SPOUSE, * Verbal permission to speak to the caregivers and representatives has been obtained from the patient. N/A * Community resources currently utilized Other * Please name any agencies selected above. [facility], [place], 0630AM, MEDICAID TRANSPORT * Additional services required to return to the preadmission environment? No * Can the patient safely return to the preadmission environment? Yes * Has this patient been hospitalized within the prior 30 days at any hospital? No Last DP export: 07/01/19 4:22 p Patient Name: LORETO DUGAN Page [id number] at 1731 All edits/amendments must be made on the electronic document DICTATION DATE: 07/01/191729 CLOTH LAMINATING SUPERVISOR: MICHAEL 07/01/191729 RPT#: [id number] DC DATE:07/01/19 STATUS: DIS IN [facility] [address] [place] [address] END OF REPORT
--- NOTE | 2019-07-02 13:25 | CN ---
PATIENT NAME:LORETO DUGAN MEDICAL RECORD: [id number] : 59 LOCATION:. D.2108 ADMIT DATE: 06/29/19 ACCOUNT: [id number] CONSULTING PHYSICIAN: SUNDAR GOINS MD REFERRING PHYSICIAN: FATOU HARDIN MD DATE OF CONSULTATION: 07/01/2019 HISTORY OF PRESENT ILLNESS: A 64-year-old female with a known history of coronary artery disease, status post coronary bypass grafting by her report six vessels. She has a history of intermittent chest pain since that time. She also has a history of syncope and this is after standing for several minutes in one position. She does have a history of peripheral neuropathy, diabetic amaya. We were asked to see her concerning cardiovascular status. PAST MEDICAL HISTORY: 1. History of chronic renal insufficiency, on dialysis. 2. Coronary artery disease as described above. 3. Hypertension. 4. Dyslipidemia. MEDICATIONS: Synthroid 125 mcg every day, Renvela 800 mcg t.i.d., Mobic 7.5 b.i.d., Neurontin 300 b.i.d., aspirin 81 every day, Celexa 20 every day, atorvastatin 40 every day, carvedilol 3.125 b.i.d., Eliquis 5 b.i.d. ALLERGIES: IODINE, HYDROCODONE. SOCIAL HISTORY: Nonsmoker, nondrinker. She is able to take care of her ADLs. REVIEW OF SYSTEMS: The patient reports easy bruising but reports no swollen glands. The patient reports no fever, no night sweats, no significant weight gain, no significant weight loss. No significant exercise tolerance. The patient reports no dry eyes, no irritation, no vision change. Patient reports no difficulty hearing and no ear pain. Patient reports no frequent nose bleeds or nose and sinus problems. Patient reports on arm pain on exertion. No shortness of breath while lying down. No history of heart murmur. Patient reports no cough, no wheezing or coughing up blood. Patient reports no abdominal pain, no vomiting. Normal appetite. No diarrhea and not vomiting blood. No nausea and no constipation. Patient reports no incontinence. No difficulty urinating. No hematuria. No increased frequency. Patient reports no muscle aches. No weakness, no arthralgias, no back pain. No swelling of the extremities. Patient reports no abnormal mole, no jaundice, no rashes. Reports no loss of consciousness. No weakness and no numbness. No seizures, dizziness, or headaches. The patient reports no depression, no sleep disturbance, feeling safe in a relationship and no alcohol abuse. Patient reports on fatigue. Reports no runny nose or sinus pressure. No itching, no hives, and no frequent sneezing. PHYSICAL EXAMINATION: GENERAL: Pleasant female, appears stated age, in no acute distress. VITAL SIGNS: 132/69, pulse 63 and regular. HEENT: Normocephalic, atraumatic. NECK: No bruits noted. HEART: Regular, II/ systolic ejection murmur. LUNGS: Good air excursion. ABDOMEN: Soft, nontender. CONSULT REPORT [id number] LORETO DUGAN EXTREMITIES: Pulses are preserved, 2+ with no edema. IMPRESSION: Given a waxing and waning course and negative enzymes doubt this is a true ischemic symptomatology. At this point historically she may be having some autonomic dysfunction secondary to autonomic neuropathy. With her syncopal episode, will check carotid Doppler, echo study in the same setting. No contraindication at discharge from my standpoint. TRANSINT:[id number] Voice Confirmation ID: [id number] DOCUMENT ID: [id number] SUNDAR GOINS MD at 1325 CC: [id number] DICTATION DATE: 07/01/19 1229 PARISH VISITOR: 07/01/19 182 DIS IN 07/01/19 [place] [address] [place] [address]
--- NOTE | 2019-07-02 13:25 | EC ---
PATIENT:LORETO DUGAN DATE OF SERVICE: 06/29/19 SEX: F MEDICAL RECORD: [id number] DATE OF : [birth year] LOCATION:D.M2 D.210 AGE OF PATIENT: 64 ADMISSION DATE: 06/29/19 REFERRING PHYSICIAN: INTERPRETING PHYSICIAN: SUNDAR GOINS MD ECHOCARDIOGRAM REPORT ECHO CHARGES 4 ECHO COMPLETE Date: 07/01/19 CLINICAL DIAGNOSIS: SYNCOPE H/O CAD ECHOCARDIOGRAPHIC MEASUREMENTS (adult normal given) AC root (d.<3.7cm) 3.3 cm LV Septum d (<1.2 cm> 1.5 cm Valve Excursion 2.0 cm LV Septum (systole) 2.5 cm Left Atria (s.<4.0cm> 3.1 cm LVPW d(<1.2cm) 1.7 cm RV (d.<2.3cm) 3.2 cm LVPW (sytole) 2.1 cm LV diastole(<5.6CM) 5.2 cm MV E-F(>70mm/sec) cm LV systole 3.2 cm LVOT Diameter 2.1 cm MV exc.(>10mm) cm Est.ejection fraction (50-75%) % DOPPLER: LVIT cm/sec A 52.0 cm/sec E 41.0 cm/sec LA cm/sec RVSP 28.4 mmHg LVOT 100 cm/sec AOP1/2T m/s Asc. Ao 165 cm/sec RVOT 48.0 cm/sec RA cm/sec PA 97.0 cm/sec AV Gradient Peak 11.0 mmHg AV Mean 4.3 mmHg AV Area 1.6 cm MV Gradient Peak 4.9 mmHg MV Mean 1.6 mmHg MV Area cm COMMENTS: Indigo Mixer: 1 MIGUE OLIVAOE Gravity Prospecting Observer Helper: 3 Dr. Benoit TAPE# PACS Pericardial Effusion N DATE OF SERVICE: Adequate 2D, color flow imaging, spectral Doppler, and M-Mode. LVH is present. LV internal dimensions are normal. LV is globally hypokinetic with reduced EF, estimated EF 35%. Aortic valve is sclerosed without evidence of stenosis by Doppler interrogation. Left atrium is normal . Mitral valve shows no prolapse. Mild MR. Right-sided chambers are grossly normal. Trace TR. TRANSINT:[id number] Voice Confirmation ID: [id number] DOCUMENT ID: [id number] ECHOCARDIOGRAM REPORT [id number] LORETO DUGAN,SUNDAR Chester MD at 1325 CC: [id number] DICTATION DATE: 07/01/191602 TAX EXPERT: 07/01/192124 DIS IN 07/01/19 [facility] [address] [place] [address]
== END 2019-07-01 14:16 | disposition home or self-care (01) | DRG 314 ==
LOC: D.ER 14:14 → D.M2 18:13
PROVIDERS: Family Medicine; ADMIT Internal Medicine Nephrology; ATTEND Internal Medicine Nephrology
PROC: 5A1D70Z Performance of Urinary Filtration, Intermittent, Less than 6 Hours Per Day (ICD-10-PCS; principal; 2019-06-30)
DX: T82.848A Pain due to vascular prosthetic devices, implants and grafts, initial encounter (principal); N18.6 End stage renal disease; I13.2 Hypertensive heart and chronic kidney disease with heart failure and with stage 5 chronic kidney disease, or end stage renal disease; Y83.9 Surgical procedure, unspecified as the cause of abnormal reaction of the patient, or of later complication, without mention of misadventure at the time of the procedure; E11.22 Type 2 diabetes mellitus with diabetic chronic kidney disease; I50.9 Heart failure, unspecified; E11.319 Type 2 diabetes mellitus with unspecified diabetic retinopathy without macular edema; E66.9 Obesity, unspecified; Z68.31 Body mass index [BMI] 31.0-31.9, adult; D63.1 Anemia in chronic kidney disease; Z87.891 Personal history of nicotine dependence

== ENCOUNTER → 2019-07-03 12:04 | Emergency (ER) | payer MEDICARE ==
[~2019-07-03 12:04] MED LIST changes: +AMOX TR-K CLV 21 TAB PO; +LOMOTIL 2.5-0.1 EAC1 PO; +MOBIC7.5 MG PO; +PROBIOTIC BLEN1 EACH PO
[2019-07-03 12:09] VITALS: Ht 170.2 cm
[2019-07-03 13:09] LABS: BASOPHILS 0.5 % (0-2); EOSINOPHILS 3.7 % (0-7); HEMATOCRIT 29.1 % (36.0-48.0); HEMOGLOBIN 8.8 g/dL (12-16); IMMATURE GRANULOCYTES 0.1 % (0-5); LYMPHOCYTES 21.2 % (15-50); MCH 29.6 pg (26.0-34.0); MCHC 30.2 g/dL (31.0-37.0); MONOCYTES 8.2 % (2-11); NEUTROPHILS 66.3 % (40-80); PLATELET COUNT 175 10x3/uL (130-400); RBC 2.97 10x6/uL (4.00-5.40); RDW 14.6 % (11.5-14.5); WBC 9.9 10x3/uL (4.8-10.8)
[2019-07-03 13:32] LABS: INR 1.21 (0.85-1.17); PROTIME 15.3 SECONDS (11.6-15.0)
[2019-07-03 13:33] LABS: ANION GAP 19.9 mmol/L (8-16); CALCIUM 8.5 mg/dL (8.5-10.1); CARBON DIOXIDE 22.4 mmol/L (21.0-32.0); CREATININE - SERUM 10.4 mg/dL (0.6-1.3); POTASSIUM - SERUM 5.3 mmol/L (3.5-5.1)
[2019-07-03 13:39] LABS: ALBUMIN 3.1 g/dL (3.4-5.0); BILIRUBIN - TOTAL 0.4 mg/dL (0.2-1.3); PROTEIN - SERUM 6.4 g/dL (6.4-8.2)
[2019-07-03 18:11] VITALS: BP 116/74
== END | disposition home or self-care (01) ==
LOC: D.ER 12:04
PROVIDERS: Emergency Medicine
DX: D64.9 Anemia, unspecified (principal); T36.95XA Adverse effect of unspecified systemic antibiotic, initial encounter; E11.22 Type 2 diabetes mellitus with diabetic chronic kidney disease; I13.2 Hypertensive heart and chronic kidney disease with heart failure and with stage 5 chronic kidney disease, or end stage renal disease; I50.9 Heart failure, unspecified; N17.9 Acute kidney failure, unspecified; Z99.2 Dependence on renal dialysis; Z95.1 Presence of aortocoronary bypass graft; I25.10 Atherosclerotic heart disease of native coronary artery without angina pectoris

== ENCOUNTER 2019-07-08 12:14 | Inpatient (IN) | payer MEDICARE ==
[~2019-07-08] VITALS: Ht 170.2 cm; Wt 93.7 kg
[2019-07-08 12:54] LABS: BASOPHILS 0.5 % (0-2); EOSINOPHILS 2.3 % (0-7); HEMATOCRIT 22.8 % (36.0-48.0); IMMATURE GRANULOCYTES 0.6 % (0-5); LYMPHOCYTES 37.7 % (15-50); MCH 29.2 pg (26.0-34.0); MCHC 30.7 g/dL (31.0-37.0); MEAN PLATELET VOLUME 9.2 fL (7.4-10.4); MONOCYTES 9.7 % (2-11); NEUTROPHILS 49.2 % (40-80); PLATELET COUNT 182 10x3/uL (130-400); RDW 14.2 % (11.5-14.5); WBC 6.6 10x3/uL (4.8-10.8)
[2019-07-08 12:59] LABS: ANION GAP 10.2 mmol/L (8-16); CALCIUM 9.1 mg/dL (8.5-10.1); CARBON DIOXIDE 28.8 mmol/L (21.0-32.0); CREATININE - SERUM 8.1 mg/dL (0.6-1.3)
[2019-07-08 13:01] LABS: INR 1.05 (0.85-1.17); PROTIME 13.7 SECONDS (11.6-15.0)
[2019-07-08 13:05] LABS: ALBUMIN 2.6 g/dL (3.4-5.0); BILIRUBIN - TOTAL 0.27 mg/dL (0.2-1.3); PROTEIN - SERUM 6.4 g/dL (6.4-8.2)
--- NOTE | 2019-07-08 13:44 | NUR ---
GUIAAC RESULTS SENT TO LAB AND WERE POSITIVE. NOTIFIED DR. KNOTT
[2019-07-08 14:04] VITALS: BP 131/59
--- NOTE | 2019-07-08 14:04 | NUR ---
BLOOD INFUSION STARTED VIA PUMP SEE BLOOD FLOW SHEET FOR DOC.
--- NOTE | 2019-07-08 14:18 | NUR ---
REPORT GIVEN TO YOSEF
[2019-07-08 14:19] VITALS: BP 137/53
--- NOTE | 2019-07-08 14:56 | MORECARE ---
CASE MANAGEMENT DISCHARGE SUMMARY PATIENT: LORETO DUGAN UNIT: [id number] ADM DATE: 07/08/19 AGE: 64 : 59 SEX: F ROOM/BED: D.2100 AUTHOR: LUCIO MCKAY PHYSICIAN: REFERRING PHYSICIAN: FATOU HARDIN MD DATE OF SERVICE: 07/08/19 Discharge Plan Patient Name: LORETO DUGAN Facility: [facility]:[place] : 1955 Planned Disposition: Anticipated Discharge Date: Discharge Date: Expected LOS: Initial Reviewer: [email or web address] Initial Review Date: 07/08/2019 Generated: 07/08/19 3:55 pm Comments DCP- Discharge Planning Updated by [email or web address]: Hallie Otero on 07/08/19 1:[address] CM met with patient to discuss initial discharge planning. Patient is in agreement to proceed with the assessment with son, Stefan, present. Patient reports that she lives at home independently with her son. Patient is alert/oriented. Stairs/steps: 2 w/rails. PCP: Dr. Louise. Pharmacy: [email or web address]. Patient states they have been able to obtain all of their prescribed medications. HHS: Not current, but in past with [facility]. DME: jeniffer Walters. [facility]. Patient gives permission to speak with family members. Emergency contact: Stefan Dugan (son) [phone]. Patient is Independent with all ADL's, medication management PRODUCT TRANSFER PUMPER. Patient is current with [facility], //Sa @0630. Transportation via [employer] [facility]. CM discussed the availability of HH, Rehab, DME services. Patient denies the need for additional services at this time and feels safe returning to previous environment. Patient was discharged from this hospital 07/01/19. Patient denies the use of community resources PRODUCT TRANSFER PUMPER. Transportation at time of discharge: Stefan Dugan (son). CM will assist PRN with dc needs/plans. Patient Name: LORETO DUGAN Page [phone] at 1457 All edits/amendments must be made on the electronic document DICTATION DATE: 07/08/191454 LIME MIXER TENDER: DM 07/08/191454 RPT#: [id number] DC DATE: STATUS: ADM IN [facility] [address] [place] [address] END OF REPORT
--- NOTE | 2019-07-08 15:04 | MORECARE ---
CASE MANAGEMENT DISCHARGE SUMMARY PATIENT: LORETO DUGAN UNIT: [id number] ADM DATE: 07/08/19 AGE: 64 : 59 SEX: F ROOM/BED: D.5093 AUTHOR: NELY,DOC PHYSICIAN: REFERRING PHYSICIAN: FATOU HARDIN MD DATE OF SERVICE: 07/08/19 Discharge Plan Patient Name: LORETO DUGAN Facility: [facility]:[place] : 1955 Planned Disposition: Anticipated Discharge Date: Discharge Date: Expected LOS: Initial Reviewer: [email or web address] Initial Review Date: 07/08/2019 Generated: 07/08/19 4:04 pm DCP- Discharge Planning Updated by [email or web address]: Hallie Otero on 07/08/19 2:[address] CM met with patient to discuss initial discharge planning. Patient is in agreement to proceed with the assessment with son, Stefan, present. Patient reports that she lives at home independently with her son. Patient is alert/oriented. Stairs/steps: 2 w/rails. PCP: Dr. Louise. [facility]. Patient states they have been able to obtain all of their prescribed medications. HHS: Not current, but in past with [facility]. DME: jeniffer Walters. [facility]. Patient gives permission to speak with family members. Emergency contact: Stefan Dugan (son) [phone]. Patient is Independent with all ADL's, medication management CLIENT SERVICE ASSOCIATE. Patient is current with [facility], //[place] @0630. Transportation via [employer]. CM discussed the availability of HH, Rehab, DME services. Patient denies the need for additional services at this time and feels safe returning to previous environment. Patient was discharged from this hospital 07/01/19. Patient denies the use of community resources CLIENT SERVICE ASSOCIATE. Transportation at time of discharge: Stefan Dugan (son). CM will assist PRN with dc needs/plans. Patient has had a recent FALL since last admission. DCPIA - Discharge Planning Initial Assessment Updated by [email or web address]: Hallie Otero on 07/08/19 2:57 pm * Is the patient Alert and Oriented? Yes * How many steps to enter\exit or inside your home? 2+rails * PCP Dr. Louise * Pharmacy [facility] * Preadmission Environment Home with Family * ADLs Independent * Equipment Cane Walker * Other Equipment DME: [facility] * List name and contact numbers for known caregivers / representatives who currently or will assist patient after discharge: Stefan Dugan (son) [phone] * Verbal permission to speak to the caregivers and representatives has been obtained from the patient. Yes * Community resources currently utilized None * Please name any agencies selected above. NA * Additional services required to return to the preadmission environment? No * Can the patient safely return to the preadmission environment? Yes * Has this patient been hospitalized within the prior 30 days at any hospital? Yes Last DP export: 07/08/19 1:56 p Patient Name: LORETO DUGAN Page [id number] at 1504 All edits/amendments must be made on the electronic document DICTATION DATE: 07/08/19 1504 PIT TANNER: MICHAEL 07/08/19 1504 RPT#: [id number] DC DATE: STATUS: ADM IN [facility] [address] [place] [address] END OF REPORT
--- NOTE | 2019-07-08 16:35 | NUR ---
BLOOD INFUSION COMPLETE , FLUSHED WITH NS, TRANFERRED TO ROOM 2104 SEE CHRIS.
[2019-07-08 17:03] VITALS: BP 134/41; BMI 32.4
--- NOTE | 2019-07-08 17:52 | NUR ---
P[T ARRIVED TO FLOOR VIA STRECHER. PT VSS. 2ND UNIT OF BLOOD STARTED THROUGH BLUE HEMASPLIT PORT. PERMISSION OBTAINED FROM SALVAT[facility] GARRIDO [facility]. PT IS A/O. PT TO BE NPO AT MIDNIGHT FOR EGD. MEDS RECONCILED. PT DENIES ANY PAIN OR NEEDS AT THIS TIME. BED LOW CALL LIGHT WITHIN REACH. WILL CONTINUE TO MONITOR.
--- NOTE | 2019-07-08 19:47 | NUR ---
EVENING ROUNDS COMPLETE. PT SITTING UP IN BED. AAOX4. NO SIGNS OF DISTRESS. BLOOD INFUSING INTO RIGHT CHEST HEMESPLIT AT 125ML/HR. PT DENIES ANY DISCOMFORT AT THIS TIME. CL IN REACH, BED IN LOWEST POSITION.
[2019-07-08 20:00] VITALS: BP 138/50
[2019-07-09] VITALS: BP 137/65
[2019-07-09 04:00] VITALS: BP 127/67
--- NOTE | 2019-07-09 08:12 | MORECARE ---
CASE MANAGEMENT DISCHARGE SUMMARY PATIENT: LORETO DUGAN UNIT: [id number] ADM DATE: 07/08/19 AGE: 64 : 59 SEX: F ROOM/BED: D.4071 AUTHOR: NELY,DOC PHYSICIAN: REFERRING PHYSICIAN: FATOU HARDIN MD DATE OF SERVICE: 07/09/19 Discharge Plan Patient Name: LORETO DUGAN Facility: [facility]:[place] : 1955 Planned Disposition: Home Anticipated Discharge Date: Discharge Date: Expected LOS: Initial Reviewer: [email or web address] Initial Review Date: 07/08/2019 Generated: 07/09/19 9:12 am DCP- Discharge Planning Updated by [email or web address]: Hallie Otero on 07/08/19 2:[address] CM met with patient to discuss initial discharge planning. Patient is in agreement to proceed with the assessment with son, Stefan, present. Patient reports that she lives at home independently with her son. Patient is alert/oriented. Stairs/steps: 2 w/rails. PCP: Dr. Louise. [facility]. Patient states they have been able to obtain all of their prescribed medications. HHS: Not current, but in past with [facility]. DME: jeniffer Walters. [facility]. Patient gives permission to speak with family members. Emergency contact: Stefan Dugan (son) [phone]. 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 Patient is current with [facility], //Sa @0630. Transportation via [employer]. CM discussed the availability of HH, Rehab, DME services. Patient denies the need for additional services at this time and feels safe returning to previous environment. Patient was discharged from this hospital 07/01/19. 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 Transportation at time of discharge: Stefan Dugan (son). CM will assist PRN with dc needs/plans. Patient has had a recent FALL since last admission. DCPIA - Discharge Planning Initial Assessment Updated by [email or web address]: Hallie Otero on 07/08/19 2:57 pm * Is the patient Alert and Oriented? Yes * How many steps to enter\exit or inside your home? 2+rails * PCP Dr. Louise * Pharmacy [facility] * Preadmission Environment Home with Family * ADLs Independent * Equipment Cane Walker * Other Equipment DME: [facility] * List name and contact numbers for known caregivers / representatives who currently or will assist patient after discharge: Stefan Dugan (son) [phone] * Verbal permission to speak to the caregivers and representatives has been obtained from the patient. Yes * Community resources currently utilized None * Please name any agencies selected above. NA * Additional services required to return to the preadmission environment? No * Can the patient safely return to the preadmission environment? Yes * Has this patient been hospitalized within the prior 30 days at any hospital? Yes Last DP export: 07/08/19 2:04 p Patient Name: LORETO DUGAN Page [phone] at 0812 All edits/amendments must be made on the electronic document DICTATION DATE: 07/09/19811 TRANSCRIPTION TYPIST: MICHAEL 07/09/19811 RPT#: [id number] DC DATE: STATUS: ADM IN [facility] [address] [place] [address] END OF REPORT
--- NOTE | 2019-07-09 08:30 | NUR ---
SALVATORE NI WITH RENAL OK'D PT TO HAVE PIV IN EITHER ARM FOR MEDICATION . WILL CONTINUE TO MONITOR.
[2019-07-09 08:48] VITALS: BP 108/50
[2019-07-09 09:02] LABS: BASOPHILS 0.5 % (0-2); EOSINOPHILS 1.7 % (0-7); HEMATOCRIT 30.7 % (36.0-48.0); HEMOGLOBIN 9.8 g/dL (12-16); IMMATURE GRANULOCYTES 1.2 % (0-5); LYMPHOCYTES 29.3 % (15-50); MCHC 31.9 g/dL (31.0-37.0); MCV 93.9 fL (80.0-100.0); MEAN PLATELET VOLUME 9.5 fL (7.4-10.4); MONOCYTES 10.9 % (2-11); NEUTROPHILS 56.4 % (40-80); PLATELET COUNT 205 10x3/uL (130-400); RBC 3.27 10x6/uL (4.00-5.40)
[2019-07-09 09:07] LABS: ANION GAP 14.6 mmol/L (8-16); CALCIUM 9.2 mg/dL (8.5-10.1); CARBON DIOXIDE 26.9 mmol/L (21.0-32.0); CREATININE - SERUM 8.5 mg/dL (0.6-1.3); POTASSIUM - SERUM 4.5 mmol/L (3.5-5.1)
--- NOTE | 2019-07-09 10:14 | NUR ---
PT TRANSFERED TO DIALYSIS VIA [facility]. EGD SCHEDULED FOR 1530. PT A/O X4. PT DENIES ANY PAIN OR FURTHYER NEEDS AT THIS TIME. VSS.
--- NOTE | 2019-07-09 13:08 | NUR ---
PT REPORT CALLED BACK FROM DIALYSIS. PT VSS. 1 LITER PULLED OFF. PT READY FOR TRANSFER BACK TO FLOOR.
[2019-07-09 13:10] VITALS: Ht 170.2 cm; Wt 93.7 kg
--- NOTE | 2019-07-09 15:00 | NUR ---
PT NE-OPED AND TAKEN TO GI LAB AT THIS TIME.
--- NOTE | 2019-07-09 15:24 | NUR ---
I have reviewed this patient and I concur with the Shift Assessment completed by the Licensed Practical Nurse today this shift.
--- NOTE | 2019-07-09 16:03 | NUR ---
PT RETURNED FROM GI LAB A/O. VSS. STABLE DENIES ANY PAIN AT THIS TIME. WILL CONTIN UE TO MONITOR.
[2019-07-09 18:27] VITALS: BP 134/48
--- NOTE | 2019-07-09 19:24 | NUR ---
EVENING ROUNDS COMPLETE. PT LAYING IN BED. NO SIGNS OF DISTRESS. AAOX4. PT DENIES ANY PAIN OR NEEDS AT THIS TIME. CL IN REACH, BED IN LOWEST POSITION.
[2019-07-09 20:00] VITALS: BP 120/44
[2019-07-10 00:30] VITALS: BP 132/50
--- NOTE | 2019-07-10 04:25 | NUR ---
PIV STARTED IN PT L FOREARM, X3 ATTEMPTS. PT TOLERATED WELL. IV PROTONIX GIVEN AND SALINE LOCKED. NO SIGNS OF DISTRESS. CL IN REACH, BED IN LOWEST POSITION. PT DENIES ANY PAIN OR NEEDS AT THIS TIME.
[2019-07-10 04:42] VITALS: BP 130/56
[2019-07-10 08:46] LABS: BASOPHILS 0.7 % (0-2); EOSINOPHILS 3.1 % (0-7); HEMATOCRIT 33.1 % (36.0-48.0); HEMOGLOBIN 10.5 g/dL (12-16); IMMATURE GRANULOCYTES 0.8 % (0-5); LYMPHOCYTES 35.5 % (15-50); MCH 30.2 pg (26.0-34.0); MCHC 31.7 g/dL (31.0-37.0); MCV 95.1 fL (80.0-100.0); MEAN PLATELET VOLUME 9.3 fL (7.4-10.4); MONOCYTES 9.7 % (2-11); NEUTROPHILS 50.2 % (40-80); PLATELET COUNT 243 10x3/uL (130-400); RBC 3.48 10x6/uL (4.00-5.40); WBC 7.6 10x3/uL (4.8-10.8)
[2019-07-10] MEDS ORDERED: CARAFATE1 G PO (10:42)
[2019-07-10] MEDS ORDERED: ANUSOL-HC25 MG RC (10:44)
[2019-07-10] MEDS ORDERED: PROTONIX40 MG PO (10:45)
[2019-07-10 12:01] VITALS: BP 125/59
--- NOTE | 2019-07-10 12:57 | NUR ---
LEFT FA 20G IV DC'D WITH CATH INTACT. TELEMTRY DC'D. DISCHARGE INSTRUCTIONS GIVEN TO PT AND TEACHING DONE. PT HAS NO FURTHER QUESTIONS. CHART COPY SIGNED. PT STATES HER KID IS SUPPOSSED TO BE PICKING HER UP AND THEY SHOULD BE HERE ANY MINUTE. I VERBALIZED UNDERSTAND ING. I STATED TO HER WHEN THEY GET HERE JUST LET US KNOW AND WE YUSUF LGET A WC AND TAKE HER DOWN STAIRS. PT VERBALIZED UNDERSTANDING.
--- NOTE | 2019-07-10 13:27 | NUR ---
PT TAKEN DOWN VIA WC BY MANAGER ELECTRONIC AND LEFT WITH FAMILY IN PERSONAL CAR.
--- NOTE | 2019-07-13 08:29 | MORECARE ---
CASE MANAGEMENT DISCHARGE SUMMARY PATIENT: LORETO DUGAN UNIT: [id number] ADM DATE: 07/08/19 AGE: 64 : 59 SEX: F ROOM/BED: D.7330 AUTHOR: NELY,DOC PHYSICIAN: REFERRING PHYSICIAN: FATOU HARDIN MD DATE OF SERVICE: 07/13/19 Discharge Plan Patient Name: LORETO DUGAN Facility: [facility]:[place] : 1955 Planned Disposition: Home Anticipated Discharge Date: 07/10/19 Discharge Date: 07/10/2019 Expected LOS: 2 Initial Reviewer: [email or web address] Initial Review Date: 07/08/2019 Generated: 07/13/19 9:29 am DCP- Discharge Planning Updated by [email or web address]: Hallie Otero on 07/08/19 2:[address] CM met with patient to discuss initial discharge planning. Patient is in agreement to proceed with the assessment with son, Stefan, present. Patient reports that she lives at home independently with her son. Patient is alert/oriented. Stairs/steps: 2 w/rails. PCP: Dr. Louise. [facility]. Patient states they have been able to obtain all of their prescribed medications. HHS: Not current, but [facility]. DME: Canjeniffer adams. [facility]. Patient gives permission to speak with family members. Emergency contact: Stefan Dugan (son) [phone]. 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 Patient is current with [facility], T/Th/Sa @0630. Transportation via [employer]. CM discussed the availability of HH, Rehab, DME services. Patient denies the need for additional services at this time and feels safe returning to previous environment. Patient was discharged from this hospital 07/01/19. 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 Transportation at time of discharge: Stefan Dugan (son). CM will assist PRN with dc needs/plans. Patient has had a recent FALL since last admission. DCPIA - Discharge Planning Initial Assessment Updated by [email or web address]: Hallie Otero on 07/08/19 2:57 pm * Is the patient Alert and Oriented? Yes * How many steps to enter\exit or inside your home? 2+rails * PCP Dr. Louise * Pharmacy [facility] * Preadmission Environment Home with Family * ADLs Independent * Equipment Cane Walker * Other Equipment DME: [facility] * List name and contact numbers for known caregivers / representatives who currently or will assist patient after discharge: Stefan Dugan (son) [phone] * Verbal permission to speak to the caregivers and representatives has been obtained from the patient. Yes * Community resources currently utilized None * Please name any agencies selected above. NA * Additional services required to return to the preadmission environment? No * Can the patient safely return to the preadmission environment? Yes * Has this patient been hospitalized within the prior 30 days at any hospital? Yes Last DP export: 07/09/19 7:12 a Patient Name: LORETO DUGAN Page [phone] at 0829 All edits/amendments must be made on the electronic document DICTATION DATE: 07/13/19828 AUTHORIZER: MICHAEL 07/13/19828 RPT#: [id number] DC DATE:07/10/19 STATUS: DIS IN [facility] [address] [place] [address] END OF REPORT
== END 2019-07-10 13:27 | disposition home or self-care (01) | DRG 377 ==
LOC: D.ER 12:14 → D.M2 14:10 → D.SDCHOLD 07-10 10:17 → D.M2 07-10 10:19
PROVIDERS: Emergency Medicine; Internal Medicine Gastroenterology; ADMIT Internal Medicine Nephrology; ATTEND Internal Medicine Nephrology
PROC: 5A1D70Z Performance of Urinary Filtration, Intermittent, Less than 6 Hours Per Day (ICD-10-PCS; principal; 2019-07-08)
PROC: 0DB58ZX Excision of Esophagus, Via Natural or Artificial Opening Endoscopic, Diagnostic (ICD-10-PCS; 2019-07-09)
PROC: 0DB68ZX Excision of Stomach, Via Natural or Artificial Opening Endoscopic, Diagnostic (ICD-10-PCS; 2019-07-09)
DX: K25.4 Chronic or unspecified gastric ulcer with hemorrhage (principal); N18.6 End stage renal disease; I13.2 Hypertensive heart and chronic kidney disease with heart failure and with stage 5 chronic kidney disease, or end stage renal disease; E11.22 Type 2 diabetes mellitus with diabetic chronic kidney disease; I50.9 Heart failure, unspecified; Z99.2 Dependence on renal dialysis; D63.1 Anemia in chronic kidney disease; F32.9 Major depressive disorder, single episode, unspecified; K29.70 Gastritis, unspecified, without bleeding; K21.0 Gastro-esophageal reflux disease with esophagitis; R42 Dizziness and giddiness

== ENCOUNTER 2019-12-23 17:46 | Emergency (ER) | payer MEDICARE ==
[~2019-12-23] VITALS: Ht 170.2 cm; Wt 93.6 kg
[~2019-12-23 17:46] MED LIST changes: +ANUSOL-HC25 MG RC; +CARAFATE1 G PO; +PROTONIX40 MG PO
[2019-12-23 18:04] VITALS: Ht 170.2 cm; Wt 93.6 kg
[2019-12-23 19:21] VITALS: BP 125/78
== END 2019-12-23 19:22 | disposition home or self-care (01) ==
LOC: D.ER 17:46
DX: I12.0 Hypertensive chronic kidney disease with stage 5 chronic kidney disease or end stage renal disease (principal); E11.22 Type 2 diabetes mellitus with diabetic chronic kidney disease; N18.6 End stage renal disease; I11.0 Hypertensive heart disease with heart failure; I50.9 Heart failure, unspecified; E11.40 Type 2 diabetes mellitus with diabetic neuropathy, unspecified; Z95.1 Presence of aortocoronary bypass graft; Z99.2 Dependence on renal dialysis

== ENCOUNTER 2020-02-12 05:48 | Day surgery (SDC) | payer MEDICARE ==
[~2020-02-12] VITALS: Ht 172.7 cm; Wt 94.8 kg
--- NOTE | ~2020-02-12 | OP ---
PATIENT NAME: LORETO DUGAN MEDICAL RECORD: [id number] :59 LOCATION:D.OPS ADMISSION DATE: SURGEON: MELISSA OCONNOR MD DATE OF OPERATION: 02/12/2020 PREOPERATIVE DIAGNOSES: 1. Biliary dyskinesia. 2. End-stage renal disease. 3. Coronary artery disease status post coronary artery bypass grafting. POSTOPERATIVE DIAGNOSES: 1. Biliary dyskinesia. 2. End-stage renal disease. 3. Coronary artery disease status post coronary artery bypass grafting. PROCEDURE: Laparoscopic cholecystectomy. SURGEON: Melissa Oconnor MD REPORT OF PROCEDURE: The patient's abdomen was prepped and draped in sterile fashion. A cutdown was made in the midline above the umbilicus. Electrocautery was used to dissect through the subcutaneous tissues down to the external oblique fascia. A 0 Vicryls were placed in the fascia bilaterally and the fascia was incised with 15-blade. I then bluntly entered the peritoneal cavity, placed a 12-mm Loida port. Under direct visualization, a 5-mm trocar was placed in the epigastrium and two more 5-mm trocars were placed in the right subcostal region. The gallbladder was grasped and elevated. There was a lot of old inflammatory adhesions that were present and these were teased down carefully. Once I had this dissected free, then we dissected out the patient's cystic artery and cystic duct. The patient had a very large cystic artery. We were able to dissect this all the way up until it almost hit the dome of the gallbladder. At that point, we felt comfortable with this being just the cystic duct and not an aberrant hepatic vessel. The cystic duct and cystic artery were clipped proximally and distally, and ligated in standard fashion. The gallbladder was then taken off the liver bed using electrocautery. We irrigated out the right upper quadrant. Any bleeding from the liver bed was treated with electrocautery. The ports and insufflation were then removed and the gallbladder was taken out through the umbilicus. The umbilical fascia was closed with interrupted 0 Vicryls times 3. The wounds were then irrigated out with normal saline and infused with 10 mL of 0.25% Marcaine with epinephrine. The skin incisions were closed with running subcutaneous 5-0 Monocryl and dressed appropriately. COMPLICATIONS: None. CONDITION: Stable. ANESTHESIA: General endotracheal and local. BLOOD LOSS: Minimal. TRANSINT:[id number] Voice Confirmation ID: [id number] DOCUMENT ID: [id number] OPERATIVE REPORT [id number] LORETO DUGAN CHRISTIAN MD CC: [id number] DICTATION DATE: 02/12/20957 ENTRY ENGINEER: 02/12/201907 [facility] 02/12/20 [place] [id number] [place] [id number]
[~2020-02-12 05:48] MED LIST changes: +MERIBIN5 MG PO; +VITAMIN C500 M1 PO
[2020-02-12 06:49] LABS: EOSINOPHILS 5.2 % (0-7); HEMATOCRIT 31.3 % (36.0-48.0); IMMATURE GRANULOCYTES 0.1 % (0-5); MCH 26.9 pg (26.0-34.0); MCHC 28.8 g/dL (31.0-37.0); MCV 93.7 fL (80.0-100.0); NEUTROPHILS 63.7 % (40-80); PLATELET COUNT 220 10x3/uL (130-400); RBC 3.34 10x6/uL (4.00-5.40); RDW 16.9 % (11.5-14.5); WBC 9.3 10x3/uL (4.8-10.8)
[2020-02-12 07:05] LABS: ANION GAP 21.4 mmol/L (8-16); CALCIUM 9.5 mg/dL (8.5-10.1); CARBON DIOXIDE 23.7 mmol/L (21.0-32.0); CREATININE - SERUM 6.7 mg/dL (0.6-1.3); POTASSIUM - SERUM 5.1 mmol/L (3.5-5.1)
[2020-02-12] MEDS ORDERED: BAYER CHEWABLE81 MG PO (07:28)
[2020-02-12 07:29] VITALS: Ht 172.7 cm; Wt 94.8 kg
[2020-02-12] MEDS ORDERED: DILAUDID2 MG PO (10:01)
--- NOTE | 2020-02-12 12:18 | NUR ---
1120 MEDICATED FOR PAIN. FLUSHED PORT TO RIGHT CHEST PER PROTICAL
--- NOTE | 2020-02-12 13:19 | NUR ---
1040 PT ON O2 PER NC. NAUSEA RELIEVED. SOME PAIN NOTED, DRESSING CDI. 1115 FLUSHED AIDEN SPLIT NS AND HEPARINIZED PER PROTICAL. DRESSING CDI TO RIGHT CHEST. 1120 MED PAIN AFTER EATING PUDDING. INSTRUCTIONS GIVEN,
== END 2020-02-12 13:18 | disposition home or self-care (01) ==
LOC: D.OPS 05:48
PROVIDERS: ATTEND Surgery
DX: K82.8 Other specified diseases of gallbladder (principal); N18.6 End stage renal disease; I25.10 Atherosclerotic heart disease of native coronary artery without angina pectoris

== ENCOUNTER 2020-09-02 11:59 | Observation (INO) | payer MEDICARE ==
[~2020-09-02] VITALS: Ht 170.2 cm; Wt 86.2 kg
--- NOTE | ~2020-09-02 | HP ---
PATIENT: LORETO DUGAN MEDICAL RECORD: [id number] ACCOUNT: [id number] LOCATION:[address] : [birth year] ADMISSION DATE: 09/02/20 PCP: BENNIE DANGELO JR, MD HISTORY AND PHYSICAL EXAMINATION CHIEF COMPLAINT: Nonfunctioning HemoSplit catheter. HISTORY: Today is Saturday. The patient last dialyzed on Saturday. She has a tunneled catheter, which was placed by Dr. Adames in the past. She states it was placed about a year ago. She last underwent dialysis on Saturday. She states that the dialysis was abbreviated and was not very effective. The patient then underwent an installation of a Cathflo into the tunneled catheter and this did not improve things. She presented to the office yesterday and I did not realize that she had already undergone attempted declotting of the tunneled catheter. The patient was taken to the outpatient department for the purpose of instillation of the Cathflo. Once we found out that she had already undergone this procedure, it was obvious that she needed her tunneled catheter changed out. I am going to plan for the tunneled catheter changed out today. I am going to check for fibrin sleeve and if I identify one I will likely lyse it. I have discussed this with the patient including the risks, possible complications, and alternatives to the procedure. She elects to proceed. PAST MEDICAL AND SURGICAL HISTORY: History of GI bleeding, neuropathy, numbness, weakness, tingling cataracts, poor eyesight, surgery on both eyes, diabetes, hypothyroidism, hypertension, congestive heart failure, history of CABG, coronary artery disease times 6, end-stage renal disease twice a week on Tuesdays and , history of breast cancer, arthritis, carpal tunnel release, HemoSplit catheter placement, depression, anxiety, , cervical spine surgery, axillary lymph node removal, skin graft placement, carpal tunnel release, tubal ligation. ALLERGIES: IODINE WELL HYDROCODONE. HOME MEDICATIONS: See the nursing list. FAMILY HISTORY: Positive for cancer and diabetes in parents. REVIEW OF SYSTEMS: Positive for fatigue. Positive for orthopnea. Positive for lower extremity edema. Positive for poor vision. Positive for chronic kidney disease and the patient is on dialysis. PHYSICAL EXAMINATION: GENERAL: The patient does not appear acutely ill. She does appear chronically ill. VITAL SIGNS: Reviewed. EARS: External ears appear normal. EYES: Extraocular movements are intact. NECK: Trachea is midline. CHEST: No intercostal retractions. PULMONARY: Nonlabored. No stridor. EXTREMITIES: Lower extremity edema. No peripheral cyanosis. LABORATORY DATA: Has been reviewed. IMPRESSION: HISTORY AND PHYSICAL [id number] LORETO DUGAN 1. End-stage renal disease without access for hemodialysis. 2. Nonfunctioning HemoSplit catheter. PLAN: As described above. TRANSINT:[id number] Voice Confirmation ID: [id number] DOCUMENT ID: [id number] 09/03/20 HP to Cons, dmm 09/05/20 Cons to HP, regm BASSAM BRAVO MD CC: FATEMEH ROWE [id number] DICTATION DATE: 09/03/20 1238 UPFITTER: 09/03/20 1311 DIS IN 09/03/[address] [facility] [address] [place] [address]
[~2020-09-02 11:59] MED LIST changes: +BAYER CHEWABLE81 MG PO
[2020-09-02 14:46] VITALS: BP 145/48; BMI 29.8
[2020-09-02 20:04] VITALS: BP 145/48
[2020-09-02 20:07] VITALS: BP 183/60
--- NOTE | 2020-09-02 20:13 | NUR ---
PT BROUGHT TO ROOM 2116 FROM CVICU @ 1900. ALERT/ORIENTED. AMBULATORY BUT IS LEGALLY BLIND AND NEEDS DIRECTION/ASSISTANCE. PT HAS BEEN HELD NPO ALL DAY AND IS VERY HUNGRY. HER AVF SURGERY HAS BEEN CHANGED UNTIL TOMMORROW AND PATIENT IS HUNGRY. PROVIDED SANDWICH TRAY AND DRINK AT THIS TIME. ADMISSION ASSESSMENT AND HISTORY INITIATED. HOME MEDS WERE REVIEWED BY CVICU.
--- NOTE | 2020-09-02 23:18 | NUR ---
PT RESTING IN BED. NO DISTRESS. EYES CLOSED. WILL BE NPO AFTER MIDNIGHT.
[2020-09-03 00:02] VITALS: BP 183/60; BMI 29.8
[2020-09-03] MEDS ORDERED: OMEPRAZOLE40 MG PO (03:47)
[2020-09-03 04:31] VITALS: BP 152/63
--- NOTE | 2020-09-03 04:36 | NUR ---
PT RESTING IN BED WITH NO DISTRESS. NPO FOR HEMOSPLIT PLACEMENT PER DR BRAVO TODAY.
--- NOTE | 2020-09-03 08:01 | NUR ---
PT AWAKE AND OIRENTED, LYING IN BED. UP WITH STANDBY TO BATHROOM ONLY D/T LEGAL BLINDESS. PT STATES SHE HAS NO I/V BECAUSE ANASTHESIA IS GOING TO PUT ONE IN BEFORE HER HEMASPLIT REPLACEMENT. NO COMPLAINTS OR CONERNS AT THIS TIME.CL IN REACH,SRX2.
[2020-09-03 09:37] VITALS: BP 179/69
--- NOTE | 2020-09-03 09:57 | NUR ---
ATTEMPTED I/V, UNSUCCESFUL.
[2020-09-03 10:03] VITALS: BMI 29.7
--- NOTE | 2020-09-03 12:01 | NUR ---
DR. BRAVO CAME AND SPOKE WITH PT, INFROMED HER THAT SHE WOULD BE LEAVING SOON FOR HEMASPOLIT REPLACEMENT.
--- NOTE | 2020-09-03 12:03 | NUR ---
I have reviewed this patient and I concur with the Shift Assessment completed by the Licensed Practical Nurse today this shift.
[2020-09-03 12:56] VITALS: Ht 170.2 cm; Wt 86.2 kg
--- NOTE | 2020-09-03 13:02 | NUR ---
PT ESCORTED TO SURGERY. EKG OBTAINED.
--- NOTE | 2020-09-03 15:46 | NUR ---
[id number] SON PHONE NUMBER
--- NOTE | 2020-09-03 15:50 | NUR ---
SPOKE WITH PTS SON, INFROMED OF DISCHARGE PLANNING. PT TO HAVE DIALYSIS THEN D/C HOME PROVIDING THAT DIALYSIS GOES EXPECTED. PT IN DIALYSIS AT THIS TIME, ESCORTED VIA BED.
[2020-09-03 17:08] VITALS: BP 135/37
--- NOTE | 2020-09-03 17:30 | NUR ---
PT IN DIALYSIS. DNEIES NEED FOR PRESCRIPTION PAIN MEDICATION.
--- NOTE | 2020-09-03 18:21 | NUR ---
PT AWAKE AND OIRENTED, BACK FROM DIALYSIS
--- NOTE | 2020-09-03 19:04 | NUR ---
PT ESCORTED OUT VIA WHEELCHIAR TO POV, SON DRIVING.
--- NOTE | 2020-09-04 13:42 | OP ---
PATIENT NAME: LORETO DUGAN MEDICAL RECORD: [id number] :59 LOCATION:D.M2 D.7 ADMISSION DATE:09/02/20 SURGEON: SANDEEP BRAVO MD DATE OF OPERATION: 09/03/2020 PRINCIPAL DIAGNOSES: 1. End-stage renal disease without functioning access for hemodialysis. 2. Nonfunctional HemoSplit catheter, which is a tunneled cuffed dual-lumen hemodialysis catheter. POSTOPERATIVE DIAGNOSES 1. End-stage renal disease without functioning access for hemodialysis. 2. Nonfunctional HemoSplit catheter, which is a tunneled cuffed dual-lumen hemodialysis catheter. 3. Very mature fibrin sleeve over the catheter. PROCEDURE: 1. Balloon angioplasty and lysis of fibrin sleeve. 2. Nonselective right internal jugular venogram. 3. Immediate surgeon interpretation of the fluoroscopic images. 4. Placement of right 19-cm HemoSplit catheter. SURGEON: Sandeep Bravo MD SAP DATA ANALYST: None. BLOOD LOSS: Minimal. ANESTHESIA: Local with IV sedation. COMPLICATIONS: None. The risks, possible complications, and alternatives to the procedure were explained to the patient. She elects to proceed. The discussion specifically included, but was not limited to bleeding requiring emergency reoperation, infection, possible need for additional dialysis access procedures. OPERATIVE COURSE: The patient was conveyed to the operating room electively on 09/03/2020. A narcotic analgesic was given through the HemoSplit catheter. Peripheral IV access had been lost. The area of the right chest and right neck were sterilely prepped and draped. Local anesthetic was used to infiltrate the skin and subcutaneous tissues around the HemoSplit catheter entry site as well as HemoSplit catheter tract. I bluntly dissected up along the HemoSplit catheter tract and I was able to grasp the cuff and pulled out through the skin. I advanced an 0.035 Glidewire through the longest lumen of the HemoSplit catheter. I then pulled the HemoSplit catheter back more. No radiologist was present for this procedure. Static fluoroscopic images were obtained as well as sending images. These were kept on the PACS system. Surgeon interpretation of the radiographic images are reported within the body of this operative note. I pulled the proximal most lumen of the HemoSplit catheter back into the internal jugular vein. Utilizing hand injection technique, a nonselective venogram was performed. This revealed marked irregularity at the internal jugular vein and the right brachiocephalic vein. This was consistent with fibrin sheath. There was hangup of contrast within this sheath or sleeve. OPERATIVE REPORT [id number] LORETO DUGAN The HemoSplit catheter was removed in its entirety. I advanced a 12-mm angioplasty balloon. I then balloon angioplastied the fibrin sleeve. This was very much fibrin sleeve and there were areas where I had to inflate to 6 atmospheres in order to lyse the sleeve. I then decreased the insufflation pressure down to 4 and was able to vigorously push and pull back on the balloon in order to further lyse the sleeve. A followup venogram was not performed as the patient has an IODINE ALLERGY that appears to be pretty significant and was treated preoperatively for this IODINE ALLERGY. The angioplasty balloon was removed. Over the Glidewire, I loaded a new 19-cm HemoSplit catheter, which was advanced. It was advanced into the central venous system. I buried the cuff into the subcutaneous tissues. The Glidewire was then removed. Final images revealed no radiographic evidence of complication. There was no kinking or twisting of the HemoSplit catheter and no radiographic evidence of complication. I then placed a pursestring suture of 4-0 Vicryl Rapide around the exit site to prevent bleeding out through the exit site. The flange of the HemoSplit catheter was sutured to the underlying skin with 2-0 Prolene suture. Both lumens of the HemoSplit catheter were then topped off with the appropriate amount of concentrated heparin. A sterile dressing was then applied. The patient was then conveyed back to her room. TRANSINT:[id number] Voice Confirmation ID: [id number] DOCUMENT ID: [id number] SANDEEP BRAVO MD at 1342 CC: SHO RIVAS DO [id number] DICTATION DATE: 09/03/201832 [facility]: 09/04/20 0024 DIS IN 09/03/20 [facility] [address] [place] [address]
== END 2020-09-03 19:04 | disposition home or self-care (01) ==
LOC: D.OPS 11:59 → D.RAD 14:00 → OBSVTIME 16:34 → D.CVICU 16:34 → D.M2 16:34
PROVIDERS: ADMIT Surgery; ATTEND Surgery
DX: I13.0 Hypertensive heart and chronic kidney disease with heart failure and stage 1 through stage 4 chronic kidney disease, or unspecified chronic kidney disease (principal); N18.6 End stage renal disease; T82.898A Other specified complication of vascular prosthetic devices, implants and grafts, initial encounter; I50.9 Heart failure, unspecified; E03.9 Hypothyroidism, unspecified; E11.22 Type 2 diabetes mellitus with diabetic chronic kidney disease

== ENCOUNTER 2020-09-07 08:52 | Day surgery (SDC) | payer MEDICARE ==
[~2020-09-07] VITALS: Ht 170.2 cm; Wt 87.1 kg
[~2020-09-07 08:52] MED LIST changes: +OMEPRAZOLE40 MG PO
[2020-09-07 09:51] VITALS: BP 138/60; Ht 170.2 cm; Wt 87.1 kg
[2020-09-07 10:30] LABS: BASOPHILS 0.2 % (0-2); EOSINOPHILS 2.1 % (0-7); HEMATOCRIT 31.6 % (36.0-48.0); HEMOGLOBIN 9.4 g/dL (12-16); IMMATURE GRANULOCYTES 0.4 % (0-5); LYMPHOCYTE ABS# 2.29 10x3/uL (1.18-3.74); MCH 27.6 pg (26.0-34.0); MCHC 29.7 g/dL (31.0-37.0); MCV 92.7 fL (80.0-100.0); MEAN PLATELET VOLUME 8.9 fL (7.4-10.4); MONOCYTES 8.4 % (2-11); NEUTROPHIL ABS# 7.41 10x3/uL (1.56-6.13); NEUTROPHILS 67.9 % (40-80); PLATELET COUNT 205 10x3/uL (130-400); RBC 3.41 10x6/uL (4.00-5.40); RDW 15.7 % (11.5-14.5); WBC 10.9 10x3/uL (4.8-10.8)
[2020-09-07 11:01] LABS: ANION GAP 19.6 mmol/L (8-16); CALCIUM 8.4 mg/dL (8.5-10.1); CARBON DIOXIDE 19.8 mmol/L (21.0-32.0); CREATININE - SERUM 9.6 mg/dL (0.6-1.3); POTASSIUM - SERUM 5.4 mmol/L (3.5-5.1)
[2020-09-07 11:07] LABS: APTT 23.7 SECONDS (22.8-39.4); INR 1.18 (0.85-1.17); PROTIME 13.9 SECONDS (11.6-15.0)
--- NOTE | 2020-09-07 13:04 | NUR ---
1300 IV REMOVED AND PRESSURE HELD TO LEFT BREAST. INSTRUCTIONS GIVEN.
== END 2020-09-07 13:55 | disposition home or self-care (01) ==
LOC: D.OPS 08:52
PROVIDERS: Anesthesiology; ATTEND Surgery
DX: N18.6 End stage renal disease (principal); Z99.2 Dependence on renal dialysis; T82.49XA Other complication of vascular dialysis catheter, initial encounter; E03.9 Hypothyroidism, unspecified; I11.9 Hypertensive heart disease without heart failure

== ENCOUNTER 2020-09-10 09:20 | Observation (INO) | payer MEDICARE ==
[~2020-09-10] VITALS: Ht 170.2 cm; Wt 86.4 kg
[2020-09-10 10:04] LABS: BASOPHILS 0.2 % (0-2); HEMATOCRIT 30.3 % (36.0-48.0); IMMATURE GRANULOCYTES 0.3 % (0-5); LYMPHOCYTE ABS# 2.53 10x3/uL (1.18-3.74); LYMPHOCYTES 22.1 % (15-50); MCH 27.6 pg (26.0-34.0); MCHC 29.7 g/dL (31.0-37.0); MCV 92.9 fL (80.0-100.0); MEAN PLATELET VOLUME 9.4 fL (7.4-10.4); MONOCYTES 10.1 % (2-11); NEUTROPHIL ABS# 7.35 10x3/uL (1.56-6.13); NEUTROPHILS 64.3 % (40-80); PLATELET COUNT 224 10x3/uL (130-400); RBC 3.26 10x6/uL (4.00-5.40); RDW 15.9 % (11.5-14.5); WBC 11.4 10x3/uL (4.8-10.8)
[2020-09-10 10:08] LABS: ANION GAP 16.7 mmol/L (8-16); CALCIUM 10.1 mg/dL (8.5-10.1); CARBON DIOXIDE 20.6 mmol/L (21.0-32.0); CREATININE - SERUM 10.7 mg/dL (0.6-1.3); POTASSIUM - SERUM 5.3 mmol/L (3.5-5.1)
[2020-09-10 10:15] LABS: ALBUMIN 2.4 g/dL (3.4-5.0); BILIRUBIN - TOTAL 0.35 mg/dL (0.2-1.3); PROTEIN - SERUM 6.6 g/dL (6.4-8.2)
[2020-09-10 11:22] VITALS: BP 115/46
--- NOTE | 2020-09-10 11:22 | NUR ---
ATTEMPTED REPORT AT THIS TIME.
--- NOTE | 2020-09-10 11:38 | NUR ---
REPORT GIVEN TO MARINE SHAFER.
[2020-09-10 11:39] VITALS: BP 112/61
--- NOTE | 2020-09-10 12:14 | NUR ---
RECEIVED PT TO ROOM 2126 VIA WHEELCHAIR, PT A/O X4, RESP EVEN AND NONLABORED ON RA. ORIENTED PT TO ROOM AND CALL LIGHT. OR CALLED TO PRE-OP PT. REGLAN AND PEPCID GIVEN VIA LT BREAST IV. PT SIGNED CONSENTS, CHANGED INTO HOSPITAL GOWN. WILL ASSESS PT AND START PLAN OF CARE.
--- NOTE | 2020-09-10 12:49 | NUR ---
PT TO OR.
[2020-09-10 12:56] VITALS: Ht 170.2 cm; Wt 86.4 kg
--- NOTE | 2020-09-10 14:48 | NUR ---
CALLED REPORT TO HOLLIS HAWTHORNE. WILL TRANSPORT PT TO [facility] FROM PACU ORDERD.
--- NOTE | 2020-09-10 17:23 | MORECARE ---
CASE MANAGEMENT DISCHARGE SUMMARY PATIENT: LORETO DUGAN UNIT: [id number] ADM DATE: 09/10/20 AGE: 65 : 59 SEX: F ROOM/BED: D.4565 AUTHOR: LUCIO MCKAY PHYSICIAN: REFERRING PHYSICIAN: FATOU AVERY MD DATE OF SERVICE: 09/10/20 Case Management Discharge Planning Summary CT Patient Name: LORETO DUGAN Attending MD : Fatou Carty Medical Record: [id number] Encounter : [id number] Facility : [address] [place] [address] Medical Admission Date : 110:01 Center Discharge Date : [address] [place] [address] Date of : DC Plan ID : [id number] Age/Sex/Martia : 65/ F/D Printed on : 09/10/20 17:22 CT DCP Review Details Anticipated D/C: 09/10/2020 Expected LOS : 1 Case Status : INITIATED - Initial Reviewe: [id number] - Anthony Madden Initial Review: 09/10/2020 Planned Disposi: 01 - Home or Self Care (Routine Discharge) Final Discharge: - Final Reviewer : : Final Review : DCP Focus Questions & Answers DCP Evaluation Patient gives permission to discuss discharge azalia Farley, plans with: (name, relationship and number) Patient's ability to cope with chronic illness d. No chronic illness Patient's current cognitive status: *Oriented to person, place, situation, time and present Patient and/or caregiver agree upon recommended Yes discharge plan? Physical Status: Independent with ADL's Functional screen assessment: Basic needs can adequately be met by self Functional screen assessment: No issues identified Does the patient have the ability to pay for or Yes attain post discharge needs / services? Living Arrangements: Home with others Is there a likelihood that the patient will No require additional services to return to the preadmission environment? Equipment needed for post hospitalization: None Baseline cognitive status: *Oriented to person, place, situation, time and present Living arrangements comments: Lives with sonTerell Patient with capacity for self-care or can be Yes cared for in same environment as prior to hospitalization? Results of this evaluation have been discussed Patient with: Physical environment modification needed / No anticipated for discharge: Medication Management: Patient states can afford medications Medication Management: Patient states can read and understand medication labels Pharmacy name(s): [facility] in [place] Does Patient have transportation to get home and Yes to follow-up medical appointments when discharged from the hospital? Would patient like to participate in any Care Not applicable Coordination programs (if applicable): Does the patient have electricity at home? Yes Does the patient have running water in their Yes house? Equipment in use: Cane - Single Leg Equipment in use: Walker - Rolling Other Equipment comments: elevated toilet seat Mental health screen: No mental health history DCP Re-evaluation Would patient like to participate in any Care Not applicable Coordination programs (if applicable): [facility] LORETO DUGAN MR#: [id number] /Age/Sex/Fheknz9-Cwp-54 /65/F /D Attending Physician Name: Juan Carlos Avery [id number] Patient Account:[id number] [facility] Page -1 of 1 All edits/amendments must be made on the electronic document DICTATION DATE: 09/10/201721 ARMED GUARD: MICHAEL 09/10/201721 RPT#: [id number] DC DATE: STATUS: ADM IN [facility] [address] [place] [address] END OF REPORT
--- NOTE | 2020-09-10 17:49 | MORECARE ---
CASE MANAGEMENT DISCHARGE SUMMARY PATIENT: LORETO DUGAN UNIT: [id number] ADM DATE: 09/10/20 AGE: 65 : 59 SEX: F ROOM/BED: D.7966 AUTHOR: LUCIO MCAKY PHYSICIAN: REFERRING PHYSICIAN: FATOU AVERY MD DATE OF SERVICE: 09/10/20 Case Management Discharge Planning Summary CT Patient Name: LORETO DUGAN Attending MD : Fatou Carty Medical Record: [id number] Encounter : [id number] Facility : [address] [place] [address] Medical Admission Date : 110:01 Center Discharge Date : [address] [place] [address] Date of : DC Plan ID : [id number] Age/Sex/Martia : 65/ F/D Printed on : 09/10/20 17:47 CT DCP Review Details Anticipated D/C: 09/10/2020 Expected LOS : 1 Case Status : INITIATED - Initial Reviewe: [id number] - Anthony Madden Initial Review: 09/10/2020 Planned Disposi: 01 - Home or Self Care (Routine Discharge) Final Discharge: - Final Reviewer : : Final Review : Comments CT Entered Date Type Reviewer 09/10/20 17:21 CT Discharge Planning Anthony Madden Comment CM met with patient to complete DC plan and to evaluate needs. Patient lives independently with her son, Terell Chavez ([phone]). Patient stated that she receives dialysis on Tuesdays and Saturdays only with [facility] in [place], [place]. Attempted to notify Dialysis coordinator via telephone. Left message at center ([facility] primary physician is Dr. Francis Holley and the pharmacy she uses is [facility]. Patient stated no problems with obtaining medications at this time. At discharge, the patient plans to return home and feels this is a safe discharge. CM discussed availability of home health, rehab services, and medical equipment. Patient declined HHS, SNF, and IPR. Patient voiced no other needs at this time and is satisfied with DC plan. CM will continue to follow and will assist as needed with dc plans/needs. DCP Focus Questions & Answers DCP Evaluation Patient gives permission to discuss discharge Terell Chavez, son, plans with: (name, relationship and number) Patient's ability to cope with chronic illness d. No chronic illness Patient's current cognitive status: *Oriented to person, place, situation, time and present Patient and/or caregiver agree upon recommended Yes discharge plan? Physical Status: Independent with ADL's Functional screen assessment: Basic needs can adequately be met by self Functional screen assessment: No issues identified Does the patient have the ability to pay for or Yes attain post discharge needs / services? Living Arrangements: Home with others Is there a likelihood that the patient will No require additional services to return to the preadmission environment? Equipment needed for post hospitalization: None Baseline cognitive status: *Oriented to person, place, situation, time and present Living arrangements comments: Lives with son, Terell Chavez Patient with capacity for self-care or can be Yes cared for in same environment as prior to hospitalization? Results of this evaluation have been discussed Patient with: Physical environment modification needed / No anticipated for discharge: Medication Management: Patient states can afford medications Medication Management: Patient states can read and understand medication labels Pharmacy name(s): [facility] in [place] Does Patient have transportation to get home and Yes to follow-up medical appointments when discharged from the hospital? Would patient like to participate in any Care Not applicable Coordination programs (if applicable): Does the patient have electricity at home? Yes Does the patient have running water in their Yes house? Equipment in use: Cane - Single Leg Equipment in use: Walker - Rolling Other Equipment comments: elevated toilet seat Mental health screen: No mental health history DCP Re-evaluation Would patient like to participate in any Care Not applicable Coordination programs (if applicable): [facility] LORETO DUGAN MR#: [id number] /Age/Sex/Gnfowf8-Qeq-67 //F /D Attending Physician Name: Juan Carlos Avery [id number] Patient Account:[id number] [facility] Page -1 of 1 All edits/amendments must be made on the electronic document DICTATION DATE: 09/10/201746 GLUE MAKER: MICHAEL 09/10/201746 RPT#: [id number] DC DATE: STATUS: ADM IN [facility] [address] [place] [address] END OF REPORT
--- NOTE | 2020-09-10 20:36 | NUR ---
DISCHARGE INSTUCTION GIVEN AND REVIEWED , IV REMOVED FROM L.BREAST, TAKEN DOWN VIA WHEELCHAIR
--- NOTE | 2020-09-10 20:49 | MORECARE ---
CASE MANAGEMENT DISCHARGE SUMMARY PATIENT: LORETO DUGAN UNIT: [id number] ADM DATE: 09/10/20 AGE: 65 : 59 SEX: F ROOM/BED: D.7115 AUTHOR: LUCIO MCKAY PHYSICIAN: REFERRING PHYSICIAN: FATOU AVERY MD DATE OF SERVICE: 09/10/20 Case Management Discharge Planning Summary CT Patient Name: LORETO DUGAN Attending MD : Fatou Carty Medical Record: [id number] Encounter : [id number] Facility : [address] [place] [address] Medical Admission Date : 110:01 Center Discharge Date : 09/10/[address] [place] [address] Date of : DC Plan ID : [id number] Age/Sex/Martia : 65/ F/D Printed on : 09/10/20 20:47 CT DCP Review Details Anticipated D/C: 09/10/2020 Expected LOS : 1 Case Status : INITIATED - Initial Reviewe: [id number] - Anthony Madden Initial Review: 09/10/2020 Planned Disposi: 01 - Home or Self Care (Routine Discharge) Final Discharge: - Final Reviewer : : Final Review : Comments CT Entered Date Type Reviewer 09/10/20 17:21 CT Discharge Planning Anthony Madden Comment CM met with patient to complete DC plan and to evaluate needs. Patient lives independently with her son, Terell Chavez ([phone]). Patient stated that she receives dialysis on Tuesdays and Saturdays only with [facility] in [place], [place]. Attempted to notify Dialysis coordinator via telephone. Left message at center ([facility] primary physician is Dr. Francis Holley and the pharmacy she uses is [facility]. Patient stated no problems with obtaining medications at this time. At discharge, the patient plans to return home and feels this is a safe discharge. CM discussed availability of home health, rehab services, and medical equipment. Patient declined HHS, SNF, and IPR. Patient voiced no other needs at this time and is satisfied with DC plan. CM will continue to follow and will assist as needed with dc plans/needs. DCP Focus Questions & Answers DCP Evaluation Patient gives permission to discuss discharge Terell Chavez, son, plans with: (name, relationship and number) Patient's ability to cope with chronic illness d. No chronic illness Patient's current cognitive status: *Oriented to person, place, situation, time and present Patient and/or caregiver agree upon recommended Yes discharge plan? Physical Status: Independent with ADL's Functional screen assessment: Basic needs can adequately be met by self Functional screen assessment: No issues identified Does the patient have the ability to pay for or Yes attain post discharge needs / services? Living Arrangements: Home with others Is there a likelihood that the patient will No require additional services to return to the preadmission environment? Equipment needed for post hospitalization: None Baseline cognitive status: *Oriented to person, place, situation, time and present Living arrangements comments: Lives with son, Terell Chavez Patient with capacity for self-care or can be Yes cared for in same environment as prior to hospitalization? Results of this evaluation have been discussed Patient with: Physical environment modification needed / No anticipated for discharge: Medication Management: Patient states can afford medications Medication Management: Patient states can read and understand medication labels Pharmacy name(s): [facility] in [place] Does Patient have transportation to get home and Yes to follow-up medical appointments when discharged from the hospital? Would patient like to participate in any Care Not applicable Coordination programs (if applicable): Does the patient have electricity at home? Yes Does the patient have running water in their Yes house? Equipment in use: Cane - Single Leg Equipment in use: Walker - Rolling Other Equipment comments: elevated toilet seat Mental health screen: No mental health history DCP Re-evaluation Would patient like to participate in any Care Not applicable Coordination programs (if applicable): [facility] LORETO DUGAN MR#: [id number] /Age/Sex/Agcxpd8-Aqw-52 /65/F /D Attending Physician Name: Juan Carlos Avery [id number] Patient Account:[id number] [facility] Page -1 of 1 All edits/amendments must be made on the electronic document DICTATION DATE: 09/10/202046 [employer]PER[employer]OR [employer]: MICHAEL 09/10/202046 RPT#: [id number] DC DATE:09/10/20 STATUS: DIS IN [facility] [address] [place] [address] END OF REPORT
--- NOTE | 2020-09-11 14:48 | MORECARE ---
CASE MANAGEMENT DISCHARGE SUMMARY PATIENT: LORETO DUGAN UNIT: [id number] ADM DATE: 09/10/20 AGE: 65 : 59 SEX: F ROOM/BED: D.2907 AUTHOR: LUCIO MCKAY PHYSICIAN: REFERRING PHYSICIAN: FATOU AVERY MD DATE OF SERVICE: 09/11/20 Case Management Discharge Planning Summary CT Patient Name: LORETO DUGAN Attending MD : Fatou Carty Medical Record: [id number] Encounter : [id number] Facility : [address] [place] [address] Medical Admission Date : 110:01 Center Discharge Date : 09/10/[address] [place] [address] Date of : DC Plan ID : [id number] Age/Sex/Martia : 65/ F/D Printed on : 09/11/20 14:47 CT DCP Review Details Anticipated D/C: 09/10/2020 Expected LOS : 1 Case Status : COMPLET - Initial Reviewe: [id number] - Anthony Madden Initial Review: 09/10/2020 Planned Disposi: 01 - Home or Self Care (Routine Discharge) Final Discharge: 01 - Home or Self Care (Routine Discharge) Final Reviewer : [id number] : Anthony Madden Final Review : 09/11/[address] Entered Date Type Reviewer 09/10/20 17:21 CT Discharge Planning Anthony Madden Comment CM met with patient to complete DC plan and to evaluate needs. Patient lives independently with her son, Terell Chavez ([phone]). Patient stated that she receives dialysis on Tuesdays and Saturdays only with [facility] in [place], [place]. Attempted to notify Dialysis coordinator via telephone. Left message at center ([facility] primary physician is Dr. Francis Holley and the pharmacy she uses is [facility]. Patient stated no problems with obtaining medications at this time. At discharge, the patient plans to return home and feels this is a safe discharge. CM discussed availability of home health, rehab services, and medical equipment. Patient declined HHS, SNF, and IPR. Patient voiced no other needs at this time and is satisfied with DC plan. CM will continue to follow and will assist as needed with dc plans/needs. DCP Focus Questions & Answers DCP Evaluation Patient and/or caregiver agree upon recommended Yes discharge plan? Patient's current cognitive status: *Oriented to person, place, situation, time and present Patient's ability to cope with chronic illness d. No chronic illness Patient gives permission to discuss discharge azalia Farley, plans with: (name, relationship and number) Does the patient have the ability to pay for or Yes attain post discharge needs / services? Functional screen assessment: No issues identified Functional screen assessment: Basic needs can adequately be met by self Physical Status: Independent with ADL's Equipment needed for post hospitalization: None Is there a likelihood that the patient will No require additional services to return to the preadmission environment? Living Arrangements: Home with others Results of this evaluation have been discussed Patient with: Patient with capacity for self-care or can be Yes cared for in same environment as prior to hospitalization? Living arrangements comments: Lives with son, Terell Chavez Baseline cognitive status: *Oriented to person, place, situation, time and present Physical environment modification needed / No anticipated for discharge: Medication Management: Patient states can read and understand medication labels Medication Management: Patient states can afford medications Pharmacy name(s): [facility] in [place] Does Patient have transportation to get home and Yes to follow-up medical appointments when discharged from the hospital? Would patient like to participate in any Care Not applicable Coordination programs (if applicable): Does the patient have electricity at home? Yes Does the patient have running water in their Yes house? Equipment in use: Walker - Rolling Equipment in use: Cane - Single Leg Other Equipment comments: elevated toilet seat Mental health screen: No mental health history DCP Re-evaluation Would patient like to participate in any Care Not applicable Coordination programs (if applicable): [facility] LORETO DUGAN MR#: [id number] /Age/Sex/Eqmebf2-Kkz-73 /65/F /D Attending Physician Name: Juan Carlos Avery [id number] Patient Account:[id number] [facility] Page -1 of 1 All edits/amendments must be made on the electronic document DICTATION DATE: 09/11/201446 INPATIENT PHARMACIST: MICHAEL 09/11/201446 RPT#: [id number] DC DATE:09/10/20 STATUS: DIS IN [facility] [address] [place] [address] END OF REPORT
== END 2020-09-10 20:42 | disposition home or self-care (01) ==
LOC: D.ER 09:20 → D.M2 10:01 → OBSVTIME 12:45 → D.M2 20:42
PROVIDERS: Family Medicine; ADMIT Internal Medicine Nephrology; ATTEND Internal Medicine Nephrology
DX: T82.49XA Other complication of vascular dialysis catheter, initial encounter (principal); E87.5 Hyperkalemia; R60.0 Localized edema; D63.1 Anemia in chronic kidney disease; F32.9 Major depressive disorder, single episode, unspecified; E83.39 Other disorders of phosphorus metabolism; E11.22 Type 2 diabetes mellitus with diabetic chronic kidney disease; E11.40 Type 2 diabetes mellitus with diabetic neuropathy, unspecified; I13.0 Hypertensive heart and chronic kidney disease with heart failure and stage 1 through stage 4 chronic kidney disease, or unspecified chronic kidney disease; I50.9 Heart failure, unspecified; K21.9 Gastro-esophageal reflux disease without esophagitis; N18.6 End stage renal disease; N17.9 Acute kidney failure, unspecified

== ENCOUNTER 2020-09-15 09:15 | Day surgery (SDC) | payer MEDICARE ==
[~2020-09-15] VITALS: Ht 170.2 cm; Wt 87.1 kg
--- NOTE | ~2020-09-15 | OP ---
PATIENT NAME: LORETO DUGAN MEDICAL RECORD: [id number] :59 LOCATION:D.OPS ADMISSION DATE: SURGEON: MELISSA OCONNOR MD DATE OF OPERATION: 09/15/2020 PREOPERATIVE DIAGNOSES: 1. Malfunctioning hemodialysis catheter. 2. End-stage renal disease. 3. Coronary artery disease. 4. Hypothyroidism. 5. Congestive heart failure. POSTOPERATIVE DIAGNOSES: 1. Malfunctioning hemodialysis catheter. 2. End-stage renal disease. 3. Coronary artery disease. 4. Hypothyroidism. 5. Congestive heart failure. PROCEDURE: 1. Attempted bilateral IJ catheter placement. 2. Left femoral 42 cm HemoSplit catheter placement. 3. Fluoroscopic interpretation. SURGEON: Melissa Oconnor MD REPORT OF PROCEDURE: The patient's neck and chest were all prepped and draped in sterile fashion. Using ultrasound guidance, I evaluated the internal jugular veins. The vein on the left neck was quite large and soft. A needle was used to access this vein. We were able to do this with ease. Attempts were made to pass a 0.035 Glidewire without any success. It almost immediately turned around near the left brachiocephalic vein. Despite multiple attempts, I was never able to get the wire to pass, so we abandoned the left side of the neck. We then approached the right side of the neck where there was a smaller IJ that was present, but it was soft and appeared to be patent. We were able to again access this with ultrasound guidance with ease and a guidewire was placed. I was able to pass a 0.035 Glidewire down nearly to the heart, but at this point, I ran into a lot of restrictions and what must have been some stenoses. We attempted for quite some time to pass a wire through this under fluoroscopic guidance and was never able to get the wire to pass. At one point, we did go through a collateral which extended down the patient's back, but there was such an acute angle to get to this collateral that I did not feel the catheter would work appropriately in this. Eventually, we just discontinued attempts with the neck as I felt there was too much stenosis centrally for the catheter to pass and functioned appropriately. The patient did have a left femoral HemoSplit catheter in place that was 23 cm in length. We prepped and draped this area. A skin incision was made in the left groin and I was able to eviscerate the catheter through this. The catheter was transected and a guidewire was advanced through the catheter with ease. We were able to pass the guidewire up into the inferior vena cava. The indwelling catheter was completely removed. I made a skin incision just above the patient's left knee anteriorly and tunneled a 42 cm catheter between this and the wire exit site. Over the wire, a dilator trocar device was placed and the wire and dilator were removed. The catheter tips were advanced through the trocar and the trocar was then removed. Under fluoroscopic guidance, we pulled the catheter back until it rested right at the junction of OPERATIVE REPORT [id number] LORETO DUGAN J the iliacs and the inferior vena cava. The catheter aspirated nonpulsatile dark blood and flushed easily with heparinized saline. The catheter was sutured into place with 3-0 Prolenes and the skin incisions were closed with subcutaneous 5-0 Monocryl. COMPLICATIONS: None. CONDITION: Stable. ANESTHESIA: General endotracheal. BLOOD LOSS: 50 mL. TRANSINT:[id number] Voice Confirmation ID: [id number] DOCUMENT ID: [id number] MELISSA OCONNOR MD CC: [id number] DICTATION DATE: 09/15/20 1414 COMPRESSION MOLDING MACHINE OPERATOR: 09/15/20 1706 [facility] [address] [place] [address]
[2020-09-15 10:51] VITALS: BP 162/83; Ht 170.2 cm; Wt 87.1 kg
[2020-09-15 12:01] LABS: BASOPHILS 0.6 % (0-2); EOSINOPHILS 3.3 % (0-7); HEMATOCRIT 27.7 % (36.0-48.0); HEMOGLOBIN 8.1 g/dL (12-16); IMMATURE GRANULOCYTES 0.3 % (0-5); LYMPHOCYTE ABS# 2.03 10x3/uL (1.18-3.74); LYMPHOCYTES 19.9 % (15-50); MCH 27.9 pg (26.0-34.0); MCHC 29.2 g/dL (31.0-37.0); MCV 95.5 fL (80.0-100.0); MEAN PLATELET VOLUME 9.2 fL (7.4-10.4); NEUTROPHIL ABS# 6.82 10x3/uL (1.56-6.13); NEUTROPHILS 66.9 % (40-80); PLATELET COUNT 216 10x3/uL (130-400); RDW 15.6 % (11.5-14.5); WBC 10.2 10x3/uL (4.8-10.8)
[2020-09-15 12:42] LABS: ANION GAP 16.2 mmol/L (8-16); CALCIUM 9.4 mg/dL (8.5-10.1); CARBON DIOXIDE 24.9 mmol/L (21.0-32.0); CREATININE - SERUM 9.2 mg/dL (0.6-1.3); POTASSIUM - SERUM 5.1 mmol/L (3.5-5.1)
--- NOTE | 2020-09-15 14:26 | NUR ---
DIALYSIS CALLED STATING THEY NEEDED HER FOR DIALYSIS. PT AGREED AND STATED SHE DID NEED TO BE DIALYZED.
--- NOTE | 2020-09-15 18:21 | NUR ---
3410 DR OCONNOR CALLED ABOUT ADMISSION ORDERS. PT STATED SHE WANTED TO GO HOME. ORDERS GIVEN AND NOTED. DISCHARGE INSTRUCTIONS GIVEN.
== END 2020-09-15 18:15 | disposition home or self-care (01) ==
LOC: D.OPS 09:15
PROVIDERS: ATTEND Surgery
DX: T82.49XA Other complication of vascular dialysis catheter, initial encounter (principal); Z99.2 Dependence on renal dialysis; N18.6 End stage renal disease; I25.10 Atherosclerotic heart disease of native coronary artery without angina pectoris; E03.9 Hypothyroidism, unspecified; I50.9 Heart failure, unspecified; I11.9 Hypertensive heart disease without heart failure

== ENCOUNTER 2020-09-19 10:33 | Emergency (ER) | payer MEDICARE ==
[2020-09-19] MEDS ORDERED: LISINOPRIL10 MG PO (10:53)
[2020-09-19 12:00] LABS: BASOPHILS 0.6 % (0-2); EOSINOPHILS 3.7 % (0-7); HEMATOCRIT 27.6 % (36.0-48.0); HEMOGLOBIN 7.8 g/dL (12-16); IMMATURE GRANULOCYTES 0.6 % (0-5); LYMPHOCYTES 21.8 % (15-50); MCH 27.7 pg (26.0-34.0); MCHC 28.3 g/dL (31.0-37.0); MCV 97.9 fL (80.0-100.0); MONOCYTES 9.4 % (2-11); NEUTROPHIL ABS# 6.46 10x3/uL (1.56-6.13); NEUTROPHILS 63.9 % (40-80); PLATELET COUNT 216 10x3/uL (130-400); RBC 2.82 10x6/uL (4.00-5.40); RDW 16.1 % (11.5-14.5); WBC 10.1 10x3/uL (4.8-10.8)
[2020-09-19 12:03] LABS: CALC OSMOLALITY 284 mosm/kg (275-300); CALCIUM 9.3 mg/dL (8.5-10.1); CARBON DIOXIDE 26.9 mmol/L (21.0-32.0); CHLORIDE - SERUM 100 mmol/L (98-107); CREATININE - SERUM 6.4 mg/dL (0.6-1.3); GLUCOSE 91 mg/dL (74-106); POTASSIUM - SERUM 4.7 mmol/L (3.5-5.1); SODIUM 138 mmol/L (136-145); UREA NITROGEN 38 mg/dL (7-18); eGFR NON AFRICAN AMERICAN 7 mL/min (90-120)
[2020-09-19 12:22] LABS: ALBUMIN 2.4 g/dL (3.4-5.0); ALKALINE PHOSPHATASE 38 U/L (30-120); ALT (SGPT) 4 U/L (10-68); BILIRUBIN - TOTAL 0.25 mg/dL (0.2-1.3); CKMB 0.6 U/L (0.0-3.6); CREATINE KINASE 30 UL (21-215); PRO BNP 17014 pg/mL (0-125); PROTEIN - SERUM 5.8 g/dL (6.4-8.2); TROPONIN-I < 0.017 ng/mL (0.000-0.060)
[2020-09-19 12:42] LABS: APTT 29.9 SECONDS (22.8-39.4); INR 1.13 (0.85-1.17); PROTIME 13.5 SECONDS (11.6-15.0)
== END 2020-09-19 13:13 | disposition home or self-care (01) ==
LOC: D.ER 10:33
PROVIDERS: Emergency Medicine
DX: R60.9 Edema, unspecified (principal); I87.1 Compression of vein; I10 Essential (primary) hypertension; Z95.1 Presence of aortocoronary bypass graft; E11.9 Type 2 diabetes mellitus without complications; Z86.73 Personal history of transient ischemic attack (TIA), and cerebral infarction without residual deficits

== ENCOUNTER → 2020-09-23 08:40 | Day surgery (SDC) | payer MEDICARE ==
[~2020-09-23] VITALS: Ht 170.2 cm; Wt 87.3 kg
--- NOTE | ~2020-09-23 | OP ---
PATIENT NAME: LORETO DUGAN MEDICAL RECORD: [id number] :59 LOCATION:D.OPS ADMISSION DATE: SURGEON: MELISSA OCONNOR MD DATE OF OPERATION: 09/23/2020 PREOPERATIVE DIAGNOSES: 1. Malfunctioning left femoral hemodialysis catheter. 2. End-stage renal disease. 3. Hypertension. 4. Thyroid disease. POSTOPERATIVE DIAGNOSES: 1. Malfunctioning left femoral hemodialysis catheter. 2. End-stage renal disease. 3. Hypertension. 4. Thyroid disease. PROCEDURE: 1. Attempted right IJ HemoSplit catheter placement. 2. Venogram of the central venous vessels. 3. Left femoral 42 cm HemoSplit catheter placement. 4. Fluoroscopic interpretation. SURGEON: Melissa Oconnor MD DESCRIPTION OF PROCEDURE: The patient's right neck was prepped and draped in sterile fashion. Using ultrasound guidance, a needle was used to cannulate the right internal jugular vein and a guidewire was advanced. Fluoroscopy was used to note that the wire was curling up in the venous system. We were able to pass the wire down almost to the patient's heart, but it kept turning back. We inserted the smallest dilator and placed an 0.035 Glidewire, again it continued to turn back on itself. The wire was removed and we shocked some contrast through the catheter. The patient has a SHELLFISH ALLERGY and she was given steroids preoperatively for this. 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 At this point, we removed the catheter and pressure was applied to the neck. The patient then had an indwelling left femoral 42 cm Trialysis catheter. I attempted to flush this and there was a lot of difficulty with flushing, especially through the proximal port. I was able to pass a wire through with resistance and still with passing the wire through I was not able to get much flow and return. I went ahead and pulled this catheter back and shot some dye and it appeared that the proximal left iliac and distal inferior vena cava were all opened and widely patent. There was no sign of any blood clot present within the vessels. A wire was passed through the HemoSplit catheter and we pulled it out. Upon pulling it out, the wire was not long enough to stay in the vessel, so we ended up just removing all of the structures and resticking the patient's left femoral vein using ultrasound guidance. A guidewire was advanced with ease. The catheter was then tunneled from an incision on the left thigh out to the wire exit site. The multiple dilators were placed over the wire followed by the dilator trocar device. The dilator and wire were removed and the catheter tip was advanced through the trocar with ease. The catheter tips rested in good position at the proximal iliac vein. The catheter aspirated nonpulsatile dark blood and flushed easily with heparinized saline. We then infused 3 mL to each limb of the catheter of 1000 per mL heparin flush. The catheter was then sutured into place with 2-0 Prolenes and the skin incisions were closed with 5-0 Monocryl. OPERATIVE REPORT [id number] LORETO DUGAN COMPLICATIONS: None. CONDITION: Stable. ANESTHESIA: General endotracheal. BLOOD LOSS: 30 mL. TRANSINT:[id number] Voice Confirmation ID: [id number] DOCUMENT ID: [id number] MELISSA OCONNOR MD CC: [id number] DICTATION DATE: 09/23/20 1306 [employer]UC[employer] TEACHER: 09/23/20 2218 [facility] [address] [place] [address]
[~2020-09-23 08:40] MED LIST changes: +LISINOPRIL10 MG PO; +MEDROL4 MG PO
[2020-09-23 10:02] VITALS: Ht 170.2 cm; Wt 87.3 kg
[2020-09-23 10:05] LABS: ANION GAP 16.9 mmol/L (8-16); CALCIUM 8.5 mg/dL (8.5-10.1); CARBON DIOXIDE 23.4 mmol/L (21.0-32.0); POTASSIUM - SERUM 5.3 mmol/L (3.5-5.1)
[2020-09-23 10:29] LABS: HEMATOCRIT 26.9 % (36.0-48.0); HEMOGLOBIN 7.7 g/dL (12-16); LYMPHOCYTE ABS# 2.22 10x3/uL (1.18-3.74); MCH 27.8 pg (26.0-34.0); MCHC 28.6 g/dL (31.0-37.0); MCV 97.1 fL (80.0-100.0); MEAN PLATELET VOLUME 9.3 fL (7.4-10.4); NEUTROPHIL ABS# 6.26 10x3/uL (1.56-6.13); PLATELET COUNT 258 10x3/uL (130-400); RBC 2.77 10x6/uL (4.00-5.40); RDW 17.1 % (11.5-14.5)
[2020-09-23 10:55] LABS: BASOPHILS 1 % (0-2); EOSINOPHILS 8 % (0-7); LYMPHOCYTES 22 % (15-50); NEUTROPHILS 64 % (40-80)
[2020-09-23 10:56] LABS: PLATELET ESTIMATE NORMAL
--- NOTE | 2020-09-23 14:00 | NUR ---
PRESCRIPTION CALLED IN TO [facility] IN [place], SPOKE WITH ALEK PHARMACIST, RX GIVEN PER ORDER "ELIQUIS 2.5 MG PO BID #[id number] REFILLS"
--- NOTE | 2020-09-23 14:05 | NUR ---
PATIENT DISCHARGED TO DIALYSIS UNIT FOR DIALYSIS, TO GO HOME AFTER DIALYSIS. DISCHARGE INSTRUCTIONS REVIEWED WITH PATIENT
--- NOTE | 2020-09-23 17:24 | NUR ---
DIALYSIS TREATMENT TODAY AFTER OP SURERY PATIENT MISSED LAST WEEK DUE TO ACCCESS ISSUES. REMOVED 1.5 LITERS THEN PATIENT REQUESTED TO BE TAKEN OFF TREARMENT EARLY SHE WAS DISCHARGED TO GO HOME BY PACU AFTER DIALYSIS. CALLED INTERNET MARKETING EXECUTIVE TO ENSURE PATIENT COULD LEAVE AND [employer], STATED OKAY FOR PATIENT TO DISCHARGE HOME BASED ON PACU DISCHARGE.
== END | disposition home or self-care (01) ==
LOC: D.OPS 08:40
PROVIDERS: ATTEND Surgery
DX: T82.49XA Other complication of vascular dialysis catheter, initial encounter (principal); N18.6 End stage renal disease; I11.9 Hypertensive heart disease without heart failure; E03.9 Hypothyroidism, unspecified

== ENCOUNTER 2020-11-01 06:42 | Day surgery (SDC) | payer MEDICARE ==
[~2020-11-01] VITALS: Ht 170.2 cm; Wt 85.7 kg
--- NOTE | ~2020-11-01 | OP ---
PATIENT NAME: LORETO DUGAN MEDICAL RECORD: [id number] :59 LOCATION:D.OPS ADMISSION DATE: SURGEON: MELISSA OCONNOR MD DATE OF OPERATION: 11/01/2020 PREOPERATIVE DIAGNOSES: 1. End-stage renal disease. 2. Nonfunctioning hemodialysis catheter of the left groin. 3. Coronary artery disease. 4. Hypertension. POSTOPERATIVE DIAGNOSES: 1. End-stage renal disease. 2. Nonfunctioning hemodialysis catheter of the left groin. 3. Coronary artery disease. 4. Hypertension. PROCEDURES: 1. A 36 cm left femoral HemoSplit catheter exchange. 2. Fluoroscopic interpretation. SURGEON: Melissa Oconnor MD REPORT OF PROCEDURE: The patient's left groin and indwelling HemoSplit catheter were prepped and draped in sterile fashion. A wire was advanced through the HemoSplit. We were able to remove the HemoSplit with a wire in place. A new 36 cm HemoSplit catheter was then inserted over the wire through a skin incision in the patient's left anterior thigh. We were able to advance this into its previous resting position, but upon doing this, we were not able to aspirate blood from the blue port. We then inserted an Amplatz wire. I was able to advance the catheter over this wire a little bit further and at this point, we had good blood flow back through both ports. We were able to aspirate and flush easily with heparinized saline. We then sutured the catheter into place with 2-0 Prolenes. COMPLICATIONS: None. CONDITION: Stable. ANESTHESIA: General endotracheal. BLOOD LOSS: Minimal. TRANSINT:[id number] Voice Confirmation ID: [id number] DOCUMENT ID: [id number] MELISSA OCONNOR MD CC: [id number] DICTATION DATE: 11/01/20 1124 CAMP HEAD COUNSELOR: 11/01/20 1354 [facility] [address] [place] [address]
[2020-11-01 07:17] LABS: BASOPHILS 0.9 % (0-2); EOSINOPHILS 4.6 % (0-7); HEMATOCRIT 24.3 % (36.0-48.0); IMMATURE GRANULOCYTES 0.3 % (0-5); LYMPHOCYTE ABS# 2.34 10x3/uL (1.18-3.74); LYMPHOCYTES 20.9 % (15-50); MCH 27.8 pg (26.0-34.0); MCHC 29.6 g/dL (31.0-37.0); MCV 93.8 fL (80.0-100.0); MEAN PLATELET VOLUME 9.1 fL (7.4-10.4); MONOCYTES 9.8 % (2-11); NEUTROPHIL ABS# 7.09 10x3/uL (1.56-6.13); NEUTROPHILS 63.5 % (40-80); PLATELET COUNT 288 10x3/uL (130-400); RBC 2.59 10x6/uL (4.00-5.40); RDW 16.1 % (11.5-14.5); WBC 11.2 10x3/uL (4.8-10.8)
[2020-11-01 07:18] LABS: HEMOGLOBIN 7.2 g/dL (12-16)
[2020-11-01 07:38] LABS: ANION GAP 24.7 mmol/L (8-16); CALCIUM 9.6 mg/dL (8.5-10.1); CARBON DIOXIDE 15.6 mmol/L (21.0-32.0); CREATININE - SERUM 7.7 mg/dL (0.6-1.3); POTASSIUM - SERUM 5.3 mmol/L (3.5-5.1)
[2020-11-01 10:19] VITALS: BP 178/42; Ht 170.2 cm; Wt 85.7 kg
[2020-11-01] MEDS ORDERED: HYDROCODON-ACE1 EAC7 PO (11:23)
--- NOTE | 2020-11-01 11:41 | NUR ---
LAB CALLED WITH CRITICAL VALUES. SPOKE WITH ANESTHESIA REGARDING VALUES. STATED TO REDRAW FROM HEMISPLIT PORT. SENT BLOOD OVER TO LAB.
[2020-11-01 13:10] LABS: INR 1.36 (0.85-1.17); PROTIME 15.6 SECONDS (11.6-15.0)
--- NOTE | 2020-11-01 13:45 | NUR ---
1150 - PACU NURSE REPORTED THAT PATIENT WAS TOLD THAT AFTER HER PROCEDURE WAS DONE THAT SHE WOULD BE DIALYZED AND GIVEN 2 UNITS OF PRBC'S BEFORE GOING HOME. LEDY, CHARGE NURSE, NOTIFIED NEPHROLOGY AND RECEIVED NEW ORDERS WHICH ARE ON THE CHART.
--- NOTE | 2020-11-01 13:56 | NUR ---
1310 - PATIENT TRANSFERRED TO DIALYSIS VIA STRETCHER.
--- NOTE | 2020-11-01 16:37 | NUR ---
1545 - PATIENT RETURNED FROM DIALYSIS VIA STRETCHER. RECEIVED 2 UNITS OF PRBC'S AND WAS DIALYZED. DRESSING CLEAN, DRY AND INTACT TO LEFT THIGH (FEMORAL) HEMOSPLIT. PATIENT HAS NO COMPLAINTS.
--- NOTE | 2020-11-01 17:05 | NUR ---
1645 - PATIENT UP TO BEDSIDE TO DRESS FOR DISCHARGE. INSTRUCTIONS GIVEN TO PATIENT WHO VOICED UNDERSTANDING. DRESSING TO OP SITE IS DRY AND INTACT. NO COMPLAINTS OF PAIN OR DISCOMFORT.
--- NOTE | 2020-11-01 17:47 | NUR ---
1740 - PATIENT DISCHARGED TO PRIVATE CAR VIA WHEELCHAIR WITH SON IN ATTENDANCE.
== END 2020-11-01 17:40 | disposition home or self-care (01) ==
LOC: D.OPS 06:42
PROVIDERS: Anesthesiology; ATTEND Surgery
DX: N18.6 End stage renal disease (principal); T82.49XA Other complication of vascular dialysis catheter, initial encounter; I25.10 Atherosclerotic heart disease of native coronary artery without angina pectoris; I10 Essential (primary) hypertension; I11.9 Hypertensive heart disease without heart failure; E03.9 Hypothyroidism, unspecified

== ENCOUNTER 2020-11-10 07:08 | Day surgery (SDC) | payer MEDICARE ==
[~2020-11-10] VITALS: Ht 172.7 cm; Wt 87.1 kg
[2020-11-10 07:53] LABS: ANION GAP 21.1 mmol/L (8-16); CALCIUM 9.6 mg/dL (8.5-10.1); CARBON DIOXIDE 19.2 mmol/L (21.0-32.0); CREATININE - SERUM 9.3 mg/dL (0.6-1.3); POTASSIUM - SERUM 5.3 mmol/L (3.5-5.1)
[2020-11-10 08:36] LABS: BASOPHILS 0.9 % (0-2); EOSINOPHILS 3.8 % (0-7); HEMOGLOBIN 9.6 g/dL (12-16); LYMPHOCYTES 16.5 % (15-50); MCH 27.9 pg (26.0-34.0); MCHC 31.8 g/dL (31.0-37.0); MCV 87.7 fL (80.0-100.0); MEAN PLATELET VOLUME 8.2 fL (7.4-10.4); MONOCYTES 9.6 % (2-11); NEUTROPHILS 69.2 % (40-80); RBC 3.42 10x6/uL (4.00-5.40); WBC 11.5 10x3/uL (4.8-10.8)
[2020-11-10 09:02] LABS: PLATELET COUNT 220 10x3/uL (130-400)
[2020-11-10 09:11] VITALS: BP 162/79; Ht 172.7 cm; Wt 87.1 kg
[2020-11-10] MEDS ORDERED: COREG 3.1253.125 MG (09:11)
--- NOTE | 2020-11-10 15:04 | NUR ---
REPORT RECEIVED. PATIENT REMAINS VERY SOMNOLENT. IV FLUID DICONTINUED, IV CHANGED TO SALINE LOCK. ENCOURAGED TO SIT UP AND DRINK FLUIDS.
--- NOTE | 2020-11-10 16:02 | NUR ---
MORE AWAKE AT PRESENT. DRINKING COFFEE. IV REMOVED W CATH INTACT
--- NOTE | 2020-11-11 11:56 | OP ---
PATIENT NAME: LORETO DUGAN MEDICAL RECORD: [id number] :59 LOCATION:[facility] ADMISSION DATE: SURGEON: SIMBA OCONNOR MD DATE OF OPERATION: 11/10/2020 PREOPERATIVE DIAGNOSES: 1. Nonfunctioning left femoral HemoSplit catheter. 2. End-stage renal disease. 3. Diabetes mellitus. 4. Hypertension. POSTOPERATIVE DIAGNOSES: 1. Nonfunctioning left femoral HemoSplit catheter. 2. End-stage renal disease. 3. Diabetes mellitus. 4. Hypertension. PROCEDURE: 1. Left femoral venogram. 2. Right femoral 42 cm HemoSplit catheter placement. 3. Inferior vena cavogram. 4. Fluoroscopic interpretation. SURGEON: Simba Oconnor MD DESCRIPTION OF PROCEDURE: The patient had an indwelling left femoral HemoSplit catheter 34 cm in length. A total of 10 mL of 1% lidocaine with epinephrine was infused into the surrounding tissues of the left groin and around the catheter. We pulled the catheter back a few centimeters and shot some contrast through the distal port of the catheter. Upon doing this, we could see that the catheter had been resting in the mid common iliac and the proximal and mid common iliac appeared to be completely obstructed. There were a lot of collateral vessels that went down and actually connected to the patient's right internal iliac and proceeded up the patient's inferior vena cava, which appeared to be open and patent. The 0.035 Glidewire was inserted through the catheter and multiple attempts were made to try and pass this catheter through the occlusion into the inferior vena cava. This was unsuccessful. Eventually, we decided just to discontinue any further attempts and the indwelling catheter was removed and pressure was applied to the groin until bleeding stopped. We then approached the patient's right femoral vein. The right groin was prepped and draped in sterile fashion. Using ultrasound guidance, a needle was used to cannulate the right femoral vein and a guidewire was advanced with ease. Fluoroscopy was used to note that the wire was in good position in the venous system going up into the inferior vena cava. A total of 10 mL of 1% lidocaine with epinephrine was infused into the right groin and right anterior thigh. A skin incision was made in the right groin at the wire exit site and also on the right anterior thigh. A 42 cm HemoSplit catheter was tunneled between these 2 incision sites. Multiple dilators were placed over the wire and as we approached the largest dilator, we had some difficulty with passing it through the common iliac. We eventually placed an Amplatz wire and with this in place, we were able to easily pass the remaining dilators followed by the dilator trocar device. The wire and dilator were removed and the catheter tips were advanced through the trocar. The catheter tip was eventually rested in the inferior vena cava. The catheter aspirated nonpulsatile dark blood and flushed easily with heparinized saline. This was then sutured into place with a 3-0 nylon and the skin incisions were OPERATIVE REPORT [id number] LORETO DUGAN closed with subcutaneous 5-0 Monocryl. The 3 mL of 1000 per mL heparin flush was infused into the 2 ports and the wounds were dressed appropriately. COMPLICATIONS: None. CONDITION: Stable. ANESTHESIA: Local and TIVA. BLOOD LOSS: 50 mL. TRANSINT:[id number] Voice Confirmation ID: [id number] DOCUMENT ID: [id number] SIMBA OCONNOR MD at 1156 CC: FATOU HARDIN MD [id number] DICTATION DATE: 11/10/20 1232 SERVICE AGENT: 11/10/20 1254 [facility] 11/10/20 [facility] [address] [place] [address]
== END 2020-11-10 17:39 | disposition home or self-care (01) ==
LOC: D.OPS 07:08
PROVIDERS: ATTEND Surgery
DX: T82.49XA Other complication of vascular dialysis catheter, initial encounter (principal); N18.6 End stage renal disease; E11.9 Type 2 diabetes mellitus without complications; I10 Essential (primary) hypertension; E03.9 Hypothyroidism, unspecified